=== PATIENT | male | born 1980 | race Caucasian/White ===

== ENCOUNTER 2019-09-14 15:21 | Inpatient (IN) ==
[2019-09-14] MEDS ORDERED: IOPAMIDOL 100 ML BOTTLE IV ONE (15:22)
[2019-09-14] MEDS ORDERED: DIATRIZOATE MEGLU/DIATRIZO SOD 30 ML BOTTLE PO ONE (15:22)
[2019-09-14] MEDS ORDERED: 0.9 % SODIUM CHLORIDE 1,000 ML IV ONE (15:51)
[2019-09-14] MEDS ORDERED: ACETAMINOPHEN 325 MG TABLET PO ONE (15:51)
--- NOTE | 2019-09-14 16:02 | Emergency Department Note ---
Abdominal Pain HPI - General Chief Complaint: Abdominal Pain Stated Complaint: abd pain Time Seen by Provider: 09/14/19 15:26 - History of Present Illness HPI Narrative: 39-year-old male patient presents to the emergency department with chief complaint of worsening abdominal pain and bloody stools over the last 2.5 weeks. Patient mentions that it started with the abdominal pain that he describes is more of a burning sensation to his upper abdomen. He was evaluated by a provider on 08/31 for similar symptoms. During that time he was diagnosed with abdominal pain and diarrhea. He was encouraged to make dietary changes and to take both Imodium and omeprazole. That his stool studies that showed H. pylori negative and a negative stool culture. He was noted to be guaiac positive at that time. He was then seen again in follow-up on 09/03 and did show considerable improvement. I reviewed that note indicates that there was consideration to perform an ultrasound or possibly refer the patient to GI. Patient tells me he contacted the clinic feeling worse and was then told to schedule for an abdominal CT scan. This is scheduled for tomorrow. Upon arrival patient mentions that he has had multiple watery diarrhea episodes today. He mentions at times there is both dark or bright red blood after he defecates. He denies actively straining she is toilet. He describes the pain his abdomen is more of a burning type sensation to his epigastrium. This is does not change with food ingestion. He mentions chills but denies overt fevers. He denies satiation, runny nose, or cough. He denies shortness of breath but does mention "I feel so weak that is making it hard to breathe". He denies retrosternal chest pain or palpitations. He denies any nausea or vomiting. He does admit to some anorexia and is only eaten half of a banana today. He has lost almost 20 pounds in the last 2 and half weeks. He admits to generalized malaise but no focal weakness. A review of his active problems shows the following: Plaque psoriasis, elevated LFTs, back pain, tobacco use, asthma, and acid reflux. - Related Data Previous Rx's Medication Instructions Recorded secukinumab 150 mg/mL subcutaneous 300 mg SUB-Q .COMPLEX #2 ml 06/21/19 pen injector omeprazole 20 mg capsule,delayed 20 mg PO QDAY #30 cap 09/01/19 release Allergies Allergy/AdvReac Type Severity Reaction Status Date / Time No Known Drug Allergies Allergy Verified 09/04/19 14:02 Review of Systems All systems ED: reviewed and negative except as stated. Abdominal Pain PMH - Past Medical History Medical history: Reports: non-contributory - Social History Smoking status: Current some day smoker Alcohol use: Reports: Unknown Drug use: Reports: unknown Physical Exam Limitations: no limitations General appearance: alert, in no apparent distress, other (Well-developed, well- nourished, 39-year-old male patient laying semirecumbent on the emergency room gurney appearing somewhat anxious but in no acute respiratory distress.) Head: atraumatic, normocephalic Eye: Present: normal appearance, PERRL, EOMI. Absent: scleral icterus, conjunctival injection ENT: Present: normal oropharynx, mucous membranes moist Neck: Present: trachea midline. Absent: lymphadenopathy, thyromegaly Chest: Present: symmetric chest wall rise Respiratory: Present: normal lung sounds bilaterally. Absent: respiratory distress, wheezes, stridor, accessory muscle use, prolonged expiratory phase Cardiovascular: Present: regular rate, normal rhythm. Absent: systolic murmur, diastolic murmur Abdominal: Present: soft, tenderness. Absent: distention, guarding, rebound, rigidity, organomegaly, mass Abdominal tenderness: Present: RUQ, epigastrium, moderate Rectal: Present: normal rectal tone, heme (+) stool, hemorrhoids (External thrombosed hemorrhoid noted on exam. No active hemorrhage.), tenderness (Patient did experience considerable tenderness with KWASI). Absent: normal inspection, prostate tenderness Extremities: Present: normal inspection, full ROM, normal capillary refill Back: Absent: CVA tenderness (R), CVA tenderness (L), spinous process tenderness Neurological: Present: alert, oriented X3 Psychiatric: Present: normal affect, anxious Skin: Present: warm, dry, normal color Course Course Narrative: Patient has been worked up extensively by his primary care provider over the last several weeks. He does have a CT scan ordered for tomorrow were going to push that up to today because he is now entered the emergency department with symptoms. His digital rectal exam did show a considerable thrombosed hemorrhoid and was guaiac positive. I suspect this is some of his symptoms. However, he does have the epigastric pain and frequent diarrhea. The CT scan should help shed some light on these. Screening laboratory studies are also being ordered and reviewed. Normal saline will be provided without and a liter bolus. Patient had already taken 2 regular strength Tylenol prior to arrival and was given an additional given 325 Tylenol p.o. I discussed the case briefly my collaborating physician (Dr. Breaux) who also recommended ordering a stool stool calprotectin. Upon reevaluation patient is complaining of a bit more pain to his abdomen. Patient was given Dilaudid 0.5 mg IVP. Upon reevaluation 20 minutes later his pain had decreased considerably. A review of his laboratory studies show the following: CBC WBC 12.2, all others within normal limits. CMP sodium 128, potassium 3.0, chloride 87, anion gap 18, BUN 5, glucose 137, globulin 4.0, all others within normal limits. Abdominal/pelvic CT scan with contrast read by the radiologist as moderately severe inflammation throughout the entire colon. Radiologist suspects may be infectious colitis versus ulcerative colitis. He does mention the thickened appendix which is probably related to the inflammatory bowel disease and less likely superimposed acute appendicitis. The differential diagnosis of diffuse abdominal pain in the adult patient is broad and includes the following: Bowel obstruction, perforation of the GI tract, acute/chronic mesenteric ischemia, abdominal aortic aneurysm (AAA), inflammatory bowel disease (ulcerative colitis/Crohn disease), viral gastroenteritis, spontaneous bacterial peritonitis, colorectal cancer, celiac disease, other malignancies, ketoacidosis, adrenal insufficiency, foodborne illness, IBS, constipation, diverticulosis, and lactose intolerance. These conditions were considered during his evaluation work-up. After reviewing all the data I discussed these findings with the patient who verbalized understanding. Based on his work-up thus far he is suffering from some form of inflammatory colitis. He did have stool studies done that were negative for bacteria. He does have a history of psoriasis, this makes inflammatory colitis (ulcerative colitis) more plausible. With this in mind I reached out to both our hospitalist (Dr. Cortez) and our general surgeon (Dr. Yamilex monaco) about admitting the patient for ongoing care. Dr. Cortez consented to admit the patient to our facility. Dr. Rosales will then come alongside in consultation and perform any necessary GI scoping. Patient remained stable and he was admitted to the hospital under the medical service as mentioned. Vital Signs Temperature 97.7 F 09/14/19 15:21 Pulse Rate 93 H 09/14/19 15:21 Respiratory Rate 20 09/14/19 15:21 Blood Pressure 135/105 09/14/19 15:21 Pulse Oximetry (%) 99 09/14/19 15:21 Temperature 97.7 F 09/14/19 15:21 Pulse Rate 105 H 09/14/19 18:31 Respiratory Rate 20 09/14/19 15:21 Blood Pressure 118/82 09/14/19 18:31 Pulse Oximetry (%) 96 09/14/19 18:31 Abdominal Pain - Lab Data Lab results reviewed: Yes I reviewed the patient's lab results. Result diagrams: 09/14/19 15:33 09/14/19 15:33 Lab Results 09/14/19 09/14/19 09/14/19 Range/Units 15:33 15:33 18:30 WBC 12.2 H (4.50-11.00) K/mcL RBC 5.35 (4.63-6.08) M/mcL Hgb 15.4 (13.7-17.5) g/dL Hct 44.1 (40.1-51.0) % MCV 82.4 (80.0-100.0) fL MCH 28.8 (26.0-34.0) pg MCHC 34.9 (31.0-36.0) g/dL RDW 12.1 (11.5-14.5) % Plt Count 432 (140-440) K/mcL MPV 9.3 (7.4-10.4) fL Gran % 72.7 (38.0-78.0) % Lymph % (Auto) 13.5 L (15.5-49.0) % Cottle % (Auto) 12.6 H (1.0-12.0) % Eos % (Auto) 0.7 (0.0-7.0) % Baso % (Auto) 0.5 (0.0-2.0) % Gran # 8.87 H (1.80-8.00) K/mcL Lymph # (Auto) 1.65 (1.50-4.80) K/mcL [place] # (Auto) 1.54 H (0.10-0.90) K/mcL Eos # (Auto) 0.08 (0.00-0.70) K/mcL Baso # (Auto) 0.06 (0.00-0.30) K/mcL Sodium 128 L (133-145) mmol/L Potassium 3.0 L (3.3-5.1) mmol/L Chloride 87 L (96-108) mmol/L Carbon Dioxide 23 (22-30) mmol/L Anion Gap 18.0 H (8-16) BUN 5 L (6-20) mg/dl Creatinine 1.0 (0.7-1.2) mg/dl GFR Calculation 95 Glucose 137 H (70-105) mg/dL Calcium 9.2 (8.6-10.4) mg/dl Total Bilirubin 0.9 (0.0-1.0) mg/dL AST 20 (0-37) U/l ALT 32 (0-40) U/l Alkaline Phosphatase 75 (39-117) U/L Total Protein 7.6 (5.9-8.4) gm/dL Albumin 3.6 (3.2-5.2) gm/dL Globulin 4.0 H (2.2-3.7) gm/dL Albumin/Globulin Ratio 0.9 L (1.0-2.3) Urine Color Yellow Urine Appearance Clear Urine pH 6.0 (5.0-9.0) Ur Specific [place] 1.032 (1.000-1.035) Urine Protein Neg (NEG) mg/dL Urine Glucose (UA) Negative (NEG) mg/dL Urine Ketones 20 A (NEG) mg/dL Urine Occult Blood 0.03 A (<0.03) mg/dL Urine Nitrate Neg (NEG) Urine Bilirubin Neg (NEG) mg/dL Urine Urobilinogen Neg (NEG) mg/dL Ur Leukocyte Esterase Neg (NEG) /uL Urine RBC 2 H (0-1) /hpf Urine WBC 3 (0-4) /hpf Ur Squamous Epith Cells < 1 (0-4) /hpf Urine Bacteria 0 (0) /hpf Ur Culture Indicated? No - Radiology Data Radiology results reviewed: Yes I reviewed the patient's radiology results. Ordering Physician: Jamar Tracy PA-C Date of Service: 09/14/19 Procedure(s): CT abdomen pelvis w con Accession Number(s): [id number] History: Bloody diarrhea, abdominal pain and anorexia TECHNIQUE: The patient was imaged following oral and intravenous contrast from the diaphragm through the symphysis pubis. Sagittal and coronal reformats were created. Radiation exposure was limited using dose reduction technology. FINDINGS: The liver and spleen are normal in size and homogeneous. The gallbladder and bile ducts are normal. There is no mass or inflammation in the pancreas. A 3 cm gastric diverticulum is present along the posterior wall of the cardia. This was seen on the prior MRI done on and has not enlarged. There is no associated inflammation. The adrenals and kidneys are normal. The aorta and inferior vena cava are normal. There is moderately severe diffuse thickening of the wall of the colon from the level of the cecum to the distal sigmoid. There are no diverticula. The greatest thickening is in the distal ascending colon where the wall measures up to 2.3 cm in thickness. There is no evidence of perforation. No diverticular present. The appendix is also enlarged and measures 11 mm in diameter. There is no appendicolith or inflammation around the appendix. The small intestine is normal in caliber and noninflamed. The ileocecal valve is normal. There are several small reactive lymph nodes in the mesentery adjacent to the inflamed colon. This is most apparent around the transverse and descending colon. No retroperitoneal adenopathy is present. There is no abscess or mass. Urinary bladder is moderately distended but appears normal. No abnormality seen in the prostate are seminal vesicles. IMPRESSION: Moderately severe inflammation throughout the entire colon. This could be due to an infectious colitis or ulcerative colitis. Thickened appendix which is probably related to the inflammatory bowel disease and less likely superimposed acute appendicitis Jamar Tracy was called with the results Interpreted and Authenticated by: Jareth Wells 09/14/19 Disposition Pt seen by [employer]/PA only: Yes Clinical Impression: Inflammatory bowel disease (ulcerative colitis) Qualifiers: Ulcerative colitis location: other ulcerative colitis Digestive disease complication type: unspecified complication Qualified Code(s): K51.819 - Other ulcerative colitis with unspecified complications Disposition: Xfer As Inpt ([facility]) Condition: Good Referrals: Lila Burciaga DO [Primary Care Provider] -
[2019-09-14 16:29] LABS: Basophils # (Auto) 0.06 K/mcL (0.00-0.30); Basophils % (Auto) 0.5 % (0.0-2.0); Eosinophils # (Auto) 0.08 K/mcL (0.00-0.70); Eosinophils % (Auto) 0.7 % (0.0-7.0); Granulocytes % (Auto) 72.7 % (38.0-78.0); Hematocrit 44.1 % (40.1-51.0); Hemoglobin 15.4 g/dL (13.7-17.5); Lymphocytes # (Auto) 1.65 K/mcL (1.50-4.80); Lymphocytes % (Auto) 13.5 % (15.5-49.0); Mean Cell Volume 82.4 fL (80.0-100.0); Mean Corpuscular HGB Conc 34.9 g/dL (31.0-36.0); Mean Platelet Volume 9.3 fL (7.4-10.4); Monocytes # (Auto) 1.54 K/mcL (0.10-0.90); Monocytes % (Auto) 12.6 % (1.0-12.0); Platelet Count 432 K/mcL (140-440); RBC 5.35 M/mcL (4.63-6.08); Red Cell Distribution Width 12.1 % (11.5-14.5); WBC 12.2 K/mcL (4.50-11.00)
[2019-09-14 16:49] LABS: ALT/SGPT 32 U/l (0-40); AST/SGOT 20 U/l (0-37); Albumin 3.6 gm/dL (3.2-5.2); Albumin/Globulin Ratio 0.9 (1.0-2.3); Alkaline Phosphatase 75 U/L (39-117); Bilirubin,Total 0.9 mg/dL (0.0-1.0); Calcium 9.2 mg/dl (8.6-10.4); Carbon Dioxide 23 mmol/L (22-30); Glomerular Filtration Rate 95; Glucose 137 mg/dL (70-105)
[2019-09-14 16:53] LABS: Blood Urea Nitrogen 5 mg/dl (6-20); Chloride 87 mmol/L (96-108)
--- NOTE | 2019-09-14 18:14 | Cat Scan Report ---
History: Bloody diarrhea, abdominal pain and anorexia TECHNIQUE: The patient was imaged following oral and intravenous contrast from the diaphragm through the symphysis pubis. Sagittal and coronal reformats were created. Radiation exposure was limited using dose reduction technology. FINDINGS: The liver and spleen are normal in size and homogeneous. The gallbladder and bile ducts are normal. There is no mass or inflammation in the pancreas. A 3 cm gastric diverticulum is present along the posterior wall of the cardia. This was seen on the prior MRI done on and has not enlarged. There is no associated inflammation. The adrenals and kidneys are normal. The aorta and inferior vena cava are normal. There is moderately severe diffuse thickening of the wall of the colon from the level of the cecum to the distal sigmoid. There are no diverticula. The greatest thickening is in the distal ascending colon where the wall measures up to 2.3 cm in thickness. There is no evidence of perforation. No diverticular present. The appendix is also enlarged and measures 11 mm in diameter. There is no appendicolith or inflammation around the appendix. The small intestine is normal in caliber and noninflamed. The ileocecal valve is normal. There are several small reactive lymph nodes in the mesentery adjacent to the inflamed colon. This is most apparent around the transverse and descending colon. No retroperitoneal adenopathy is present. There is no abscess or mass. Urinary bladder is moderately distended but appears normal. No abnormality seen in the prostate are seminal vesicles. IMPRESSION: Moderately severe inflammation throughout the entire colon. This could be due to an infectious colitis or ulcerative colitis. Thickened appendix which is probably related to the inflammatory bowel disease and less likely superimposed acute appendicitis Jamar Tracy was called with the results Interpreted and Authenticated by: Jareth Wells 09/14/19
[2019-09-14] MEDS ORDERED: HYDROmorphone 0.5 MG/0.5 ML SYRINGE IV PRN (18:18)
[2019-09-14] MEDS ORDERED: HYDROmorphone 1 MG/ML SYRINGE IV PRN (19:19)
[2019-09-14] MEDS ORDERED: ONDANSETRON 4 MG/2 ML VIAL IV PRN ×2 (19:19→19:57)
[2019-09-14] MEDS ORDERED: ACETAMINOPHEN 325 MG TABLET PO PRN ×2 (19:19→19:57)
[2019-09-14] MEDS ORDERED: NALOXONE HCL 0.4 MG/ML VIAL IV PRN ×2 (19:19→19:57)
[2019-09-14] MEDS ORDERED: SECUKINUMAB 300 MG SUB-Q SCH ×2 (19:30→19:57)
[2019-09-14] MEDS ORDERED: traMADol 50 MG TABLET PO PRN ×2 (19:30→19:57)
[2019-09-14] MEDS ORDERED: POTASSIUM CHLORIDE 20 MEQ in 0.9 % SODIUM CHLORIDE 1,000 ML IV SCH (19:30)
[2019-09-14] MEDS ORDERED: PIPERACILLIN SODIUM/TAZOBACTAM 3.375 GM in DEXTROSE 5% IN WATER 50 ML IV SCH (19:30)
[2019-09-14] MEDS ORDERED: morphine 2 MG/ML VIAL IV PRN ×2 (19:30→19:57)
[2019-09-14 19:31] LABS: Appearance,Urine CLEAR; Bacteria,Urine 0 /hpf (0); Bilirubin,Urine NEG (NEG); Color,Urine YELLOW; Culture Indicated,Urine NO; Glucose,Urine (UA) NEGATIVE (NEG); Ketones,Urine 20 mg/dL (NEG); Leukocyte Esterase,Urine NEG /uL (NEG); Nitrate,Urine NEG (NEG); Protein,Urine NEG (NEG); Specific Gravity,Urine 1.032 (1.000-1.035); Urine Blood 0.03 mg/dL (<0.03); Urine RBC 2 /hpf (0-1); Urine Squamous Epithelial Cell < 1 /hpf (0-4); Urine WBC 3 /hpf (0-4); Urobilinogen,Urine NEG (NEG)
--- NOTE | 2019-09-14 19:43 | Internal Med History&Physical ---
Medical - H&P: [facility] Patient information: Note initiated : 09/14/19 at 7:32 pm Service Date, if different from initiated Date: [] Patient: Mamadou Day a 39 y/o M admitted on for abd pain. Chief Complaint: [Abdominal pain and bloody diarrhea for 2.5 weeks] History of present illness: Mr. Day is a 39 year old M with a history of plaque psoriasis and tobacco use who presented to the ER due to abdominal pain and bloody diarrhea for 2.5 weeks. As per patient, patient started to have lower abdominal pain associated with the bloody diarrhea 2.5 weeks ago. The abdominal pain is almost constant, sharp in nature and 2-8 out of 10 in severity. Movement makes more pain. he has been having diarrhea with a small amount of dark red to bright red blood, 10-30 times a day. He went to see a provider on 09/01/19. He was diagnosed with abdominal pain and bloody diarrhea. His stool studies showed H. pylori negative, positive guaiac and negative stool culture. Otherwise he is fine. Denies headache, dizziness, chest pain, shortness of breath, nausea, vomiting, fever, or dysuria. No recent travel or sick contact. In the ER, CT abdomen showed colitis. 1 L normal saline was given. When I saw this patient in the ED, other than the symptoms mentioned above, he was fine. She has been lost 20 pounds over the past 2.5 weeks. Review of systems: Positive for abdominal pain and bloody diarrhea. All other systems were reviewed and are negative. Medical - H&P: PMH Family history: reviewed and not pertinent (Mother has GI problems; son has diabetes type 1.) Have you smoked in the last 12 months: Yes Drug use: none Alcohol use: occasionally Medical - H&P: Meds Home Medications Medication Instructions Recorded Confirmed Type secukinumab 150 mg/mL subcutaneous 300 mg SUB-Q .COMPLEX #2 ml 06/21/19 09/14/19 Rx pen injector omeprazole 20 mg capsule,delayed 20 mg PO QDAY #30 cap 09/01/19 09/14/19 Rx release Allergies Allergy/AdvReac Type Severity Reaction Status Date / Time No Known Drug Allergies Allergy Verified 09/04/19 14:02 Medical - H&P: Exam - Constitutional Vitals: Temp Pulse Resp BP Pulse Ox 97.7 F 105 H 20 118/82 96 09/14/19 15:21 09/14/19 18:31 09/14/19 15:21 09/14/19 18:31 09/14/19 18:31 - Other Additional findings: General - No acute distress Eyes - PERRLA, EOM intact ENT no rhinorrhea, no noticeable or palpable swelling, no redness or rash around throat or on face Neck supple, no JVD, no thyromegaly Respiratory: Lungs -clear, no wheezing or crackles. Cardiovascular - RRR no m/r/g, GI - Normal bowel sounds, no distended, soft, no tenderness. Extremeties - No edema, cyanosis or clubbing Hemo/lymphatic/immune no lymphadenopathy Neurological Alert and oriented x 3, no focal neurological deficits. Psychiatry flat affect Medical - H&P: Reslt - Labs CBC & Chem 7: 09/14/19 15:33 09/14/19 15:33 Labs: Short CBC 09/14/19 Range/Units 15:33 WBC 12.2 H (4.50-11.00) K/mcL Hgb 15.4 (13.7-17.5) g/dL Hct 44.1 (40.1-51.0) % Plt Count 432 (140-440) K/mcL BMP 09/14/19 15:33 Sodium 128 L Potassium 3.0 L Chloride 87 L Carbon Dioxide 23 BUN 5 L Creatinine 1.0 Glucose 137 H Calcium 9.2 Liver Function 09/14/19 Range/Units 15:33 Total Bilirubin 0.9 (0.0-1.0) mg/dL AST 20 (0-37) U/l ALT 32 (0-40) U/l Alkaline Phosphatase 75 (39-117) U/L Albumin 3.6 (3.2-5.2) gm/dL Urine 09/14/19 Range/Units 18:30 Urine Color Yellow Urine Appearance Clear Urine pH 6.0 (5.0-9.0) Ur Specific [place] 1.032 (1.000-1.035) Urine Protein Neg (NEG) mg/dL Urine Glucose (UA) Negative (NEG) mg/dL Medical - H&P: A/P - Narrative A/P Narrative: Assessment: 1. Colitis, etiologies unknown, infectious colitis or ulcerative colitis? K52.9 2. Bloody diarrhea R19.7 3. Hyponatremia E87.1 4. Hypokalemia E87.6 5. 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 Tobacco use Z72.0 Plan: 1. CT abdomen showed entire colitis, infectious colitis or ulcerative colitis? N.p.o. IV fluid + KCl Zosyn Pain management including IV morphine In the ER, general surgeon Dr. Rosales was consulted. He will probably do colonoscopy for him 2. Continue Secukinumab for psoriasis. 3. K supplementation Repeat electrolytes in the morning 4. DVT prophylaxis: SCD. No pharmacological prophylaxis due to GI bleeding 5. CODE STATUS: Full
[2019-09-14] MEDS ORDERED: NACL 0.9% W/KCL 20MEQ 1,000 ML IV SCH (19:57)
[2019-09-14 20:05] LABS: Hemoglobin A1C 5.4 % HGB (4.0-6.0)
[2019-09-14] MEDS ORDERED: 0.9 % SODIUM CHLORIDE 10 ML SYRINGE IV SCH ×2 (22:00)
[2019-09-15] MEDS ORDERED: PIPERACILLIN SODIUM/TAZOBACTAM 3.375 GM in DEXTROSE 5% IN WATER 50 ML IV SCH
[2019-09-15] MEDS ORDERED: ACETAMINOPHEN 650 MG/65 ML BOTTLE IV PRN (00:13)
[2019-09-15] MEDS ORDERED: NACL 0.9% W/KCL 20MEQ 1,000 ML IV SCH (00:15)
[2019-09-15] MEDS ORDERED: 0.9 % SODIUM CHLORIDE 500 ML IV ONE (00:25)
[2019-09-15] MEDS ORDERED: morphine 2 MG/ML VIAL IV PRN (00:50)
[2019-09-15] MEDS ORDERED: ONDANSETRON 4 MG/2 ML VIAL IV PRN (00:50)
[2019-09-15] MEDS ORDERED: traMADol 50 MG TABLET PO PRN (00:50)
[2019-09-15] MEDS ORDERED: SECUKINUMAB 300 MG SUB-Q SCH (00:50)
[2019-09-15] MEDS ORDERED: NALOXONE HCL 0.4 MG/ML VIAL IV PRN (00:50)
[2019-09-15 00:53] LABS: Hematocrit 39.9 % (40.1-51.0); Hemoglobin 13.8 g/dL (13.7-17.5); Mean Cell Volume 83.5 fL (80.0-100.0); Mean Corpuscular HGB Conc 34.6 g/dL (31.0-36.0); Platelet Count 394 K/mcL (140-440); RBC 4.78 M/mcL (4.63-6.08); Red Cell Distribution Width 12.2 % (11.5-14.5); WBC 13.2 K/mcL (4.50-11.00)
[2019-09-15] MEDS: NACL 0.9% W/KCL 20MEQ 1,000 ML IV SCH ×4 (01:07→22:10)
--- NOTE | 2019-09-15 03:54 | Emergency Department Note ---
ED Note Addendum Note Addendum: I discussed this case with Jamar Tracy PA-C. I agree with his evaluation management documentation. In particular we discussed work-up and diagnosis. I also reviewed his studies and results. I agree with decision to admit
[2019-09-15] MEDS ORDERED: traMADol 50 MG TABLET PO ONE (04:47)
[2019-09-15] MEDS: 0.9 % SODIUM CHLORIDE 10 ML SYRINGE IV SCH ×3 (05:57→20:36)
[2019-09-15] MEDS: PIPERACILLIN SODIUM/TAZOBACTAM 3.375 GM in DEXTROSE 5% IN WATER 50 ML IV SCH ×4 (05:57→23:57)
[2019-09-15 06:29] LABS: Basophils # (Auto) 0.03 K/mcL (0.00-0.30); Basophils % (Auto) 0.2 % (0.0-2.0); Eosinophils # (Auto) 0.01 K/mcL (0.00-0.70); Eosinophils % (Auto) 0.1 % (0.0-7.0); Granulocytes % (Auto) 74.8 % (38.0-78.0); Hematocrit 37.4 % (40.1-51.0); Hemoglobin 13.1 g/dL (13.7-17.5); Lymphocytes # (Auto) 1.04 K/mcL (1.50-4.80); Lymphocytes % (Auto) 7.7 % (15.5-49.0); Mean Cell Volume 83.7 fL (80.0-100.0); Mean Platelet Volume 9.4 fL (7.4-10.4); Monocytes # (Auto) 2.32 K/mcL (0.10-0.90); Monocytes % (Auto) 17.2 % (1.0-12.0); Platelet Count 356 K/mcL (140-440); RBC 4.47 M/mcL (4.63-6.08); Red Cell Distribution Width 12.3 % (11.5-14.5); WBC 13.5 K/mcL (4.50-11.00)
[2019-09-15 06:37] LABS: ALT/SGPT 26 U/l (0-40); AST/SGOT 16 U/l (0-37); Albumin 2.7 gm/dL (3.2-5.2); Albumin/Globulin Ratio 0.7 (1.0-2.3); Alkaline Phosphatase 60 U/L (39-117); Bilirubin,Total 0.7 mg/dL (0.0-1.0); Blood Urea Nitrogen 4 mg/dl (6-20); Carbon Dioxide 22 mmol/L (22-30); Globulin 3.8 gm/dL (2.2-3.7); Glomerular Filtration Rate 113; Glucose 115 mg/dL (70-105); Phosphorous 3.6 mg/dL (2.7-4.5)
[2019-09-15 06:40] LABS: Chloride 93 mmol/L (96-108)
[2019-09-15] MEDS ORDERED: PANTOPRAZOLE 40 MG TABLET PO SCH ×2 (07:30)
[2019-09-15] MEDS: PANTOPRAZOLE 40 MG TABLET PO SCH (07:31)
[2019-09-15] MEDS: ACETAMINOPHEN 650 MG/65 ML BOTTLE IV PRN ×2 (07:50→16:46)
--- NOTE | 2019-09-15 07:57 | XRay Report ---
HISTORY: Fever and tachycardia FINDINGS: There is a thin linear band of scar tissue at the left lung base adjacent to the cardiac apex. The lungs are otherwise clear, without evidence of pneumonia. There is no pleural effusion or adenopathy. The heart size is normal. An old healed fracture is present in the midshaft of the right clavicle. There has been no significant change since 05/02/18. IMPRESSION: Normal exam Interpreted and Authenticated by: Jareth Wells 09/15/19
[2019-09-15] MEDS ORDERED: MAGNESIUM SULFATE 2 GM/50 ML BAG IV ONE (08:06)
[2019-09-15] MEDS ORDERED: IBUPROFEN 200 MG TABLET PO PRN (13:48)
--- NOTE | 2019-09-15 13:52 | Internal Med Progress Note ---
Medical - PN: Subj Patient information: Note initiated : 09/15/19 at 1:42 pm Service Date, if different from initiated Date: [] Patient: Mamadou Day 39 y/o M admitted on 09/14/19 for abd pain. Chief Complaint: [] Interval history: 09/14 Today patient feels a little bit better. He still has mild fever and tachycar [place]. Blood pressure is improved. Still has bloody diarrhea He was initially admitted to [facility] due to colitis yesterday afternoon. But he was upgraded to PCU at midnight due to tachycardia, fever, and soft blood pressure. White blood cells 13.5, 12.5 on admission Lactic acid 0.9, 0.8 Potassium 3.0 Unknown etiology for colitis, continue Zosyn at this moment. Surgeon Dr. Rosales will see patient. - Constitutional Vitals: Vital Signs Temp Pulse Resp BP Pulse Ox 100.0 F H 118 H 18 118/74 94 09/15/19 11:39 09/15/19 11:39 09/15/19 11:39 09/15/19 11:39 09/15/19 11:39 Period Temp Pulse Resp BP Sys/Mckinney Pulse Ox Last 24 Hr 97.7 F-103 F 87-131 16-22 97-135/60-109 92-100 Intake and Output 09/14/19 09/15/19 09/15/19 21:59 05:59 13:59 Intake Total 1000 1158 1393 Output Total 325 875 575 Balance 675 283 818 Weight 103.646 kg 103.646 kg Patient Weight 09/16/19 05:59 Weight 103.646 kg Intake & Output: Intake & Output 09/14/19 09/15/19 09/15/19 21:59 05:59 13:59 Intake Total 1000 1158 1393 Output Total 325 875 575 Balance 675 283 818 Weight 103.646 kg 103.646 kg Intake: IV 1000 1038 1163 Sodium Chloride 0.9% 1,000 ml @ 1000 Wide Open IV BOLUS ONE Rx#: [id number] Sodium Chloride 0.9% 500 ml @ 500 150 mls/hr IV BOLUS ONE Rx#: [id number] NaCl 0.9% W/KCl 20Meq 1000ML 1, 488 998 000 ml @ 125 mls/hr IV .Q8H [facility] Rx#:[id number] Zosyn 3.375 gm In Dextrose 5% 50 100 in Water 50 ml @ 100 mls/hr IV Q6H [facility] Rx#:[id number] Oral 120 230 Output: Urine/Stool Mix 325 475 450 Stool 400 125 Other: Stool Size Moderate Smear Small Stool Color Brown Brown Brown Bright Red Blood Stool Consistency Liquid Loose Loose Watery Loose # Voids 1 # Bowel Movements 1 - Additional findings Additional findings: General - No acute distress Eyes - PERRLA, EOM intact ENT no rhinorrhea, no noticeable or palpable swelling, no redness or rash around throat or on face Neck supple, no JVD, no thyromegaly Respiratory: Lungs -clear, no wheezing or crackles. Cardiovascular - RRR no m/r/g, GI - Normal bowel sounds, no distended, soft, no tenderness. Extremeties - No edema, cyanosis or clubbing Hemo/lymphatic/immune no lymphadenopathy Neurological Alert and oriented x 3, no focal neurological deficits. Psychiatry flat affect Medical - PN: Obj Da - Labs CBC & Chem 7: 09/15/19 05:00 09/15/19 05:00 Labs: Abnormal Lab Results 09/15/19 09/15/19 09/15/19 05:00 05:00 00:20 WBC 13.5 H 13.2 H RBC 4.47 L Hgb 13.1 L Hct 37.4 L 39.9 L Lymph % (Auto) 7.7 L Benson % (Auto) 17.2 H Gran # 10.09 H Lymph # (Auto) 1.04 L Benson # (Auto) 2.32 H Sodium 132 L Potassium 3.0 L Chloride 93 L Anion Gap 17.0 H BUN 4 L Glucose 115 H Calcium 8.0 L Albumin 2.7 L Globulin 3.8 H Albumin/Globulin Ratio 0.7 L Urine Ketones Urine Occult Blood Urine RBC 09/14/19 09/14/19 09/14/19 18:30 15:33 15:33 WBC 12.2 H RBC Hgb Hct Lymph % (Auto) 13.5 L Benson % (Auto) 12.6 H Gran # 8.87 H Lymph # (Auto) Benson # (Auto) 1.54 H Sodium 128 L Potassium 3.0 L Chloride 87 L Anion Gap 18.0 H BUN 5 L Glucose 137 H Calcium Albumin Globulin 4.0 H Albumin/Globulin Ratio 0.9 L Urine Ketones 20 A Urine Occult Blood 0.03 A Urine RBC 2 H Meds: Medications Potassium Chloride/Sodium Chloride (Nacl 0.9% W/Kcl 20meq 1000ml) 1,000 mls @ 125 mls/hr IV .Q8H [facility] Last Admin: 09/15/19 07:32 Dose: 125 mls/hr Documented by: Acetaminophen (Ofirmev) 650 mg in 65 mls @ 130 mls/hr IV Q6HP PRN; Protocol PRN Reason: PAIN/FEVER > 101 Last Infusion: 09/15/19 08:20 Dose: Infused Documented by: Piperacillin Sod/Tazobactam (Sod 3.375 gm/ Dextrose) 50 mls @ 100 mls/hr IV Q6H [facility]; Protocol Last Infusion: 09/15/19 12:10 Dose: Infused Documented by: Morphine Sulfate (Morphine) 2 mg IV Q4HP PRN; Protocol PRN Reason: Per Pain Protocol Naloxone HCl (Narcan) 0.1 mg IV Q2MIN PRN PRN Reason: Opiate Reversal Ondansetron HCl (Zofran) 4 mg IV Q6HP PRN PRN Reason: Nausea And Vomiting Pantoprazole Sodium (Protonix) 40 mg PO QAMAC [facility] Last Admin: 09/15/19 07:31 Dose: 40 mg Documented by: Sodium Chloride (Saline Flush) 10 ml IV Q8 [facility] Last Admin: 09/15/19 13:07 Dose: Not Given Documented by: Tramadol HCl (Ultram) 50 mg PO Q6HP PRN PRN Reason: Pain Last Admin: 09/15/19 04:47 Dose: 50 mg Documented by: Medical - PN: A/P - Time Spent With Patient Total time spent is greater than 50% in coordination of care (as documented) at patient's floor/unit and/or counseling patient: - Narrative A/P Narrative: Assessment: 1. Colitis, etiologies unknown, infectious colitis or ulcerative colitis? K52.9 2. Bloody diarrhea R19.7 3. Hyponatremia E87.1 4. Hypokalemia E87.6 5. 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 Tobacco use Z72.0 Plan: 1. CT abdomen showed entire colitis, infectious colitis or ulcerative colitis? N.p.o. increased IV fluid + KCl to 150ml/hr Continue Zosyn Pain management including IV morphine General surgeon Dr. Rosales will see him and probably do colonoscopy for him Blood culture negative. LA WNL 2. Continue Secukinumab for psoriasis. 3. K supplementation Repeat electrolytes in the morning 4. DVT prophylaxis: SCD. No pharmacological prophylaxis due to GI bleeding 5. CODE STATUS: Full Medical - PN: Qual - VTE Deep Vein Thrombosis/Pulmonary Embolism Present on Admission: No
--- NOTE | 2019-09-15 15:00 | General Surgery Consult Note ---
History of Present Illness Patient information: Note initiated : 09/15/19 at 2:57 pm Service Date, if different from initiated Date: [] Patient: Mamadou Day 39 y/o M admitted on 09/14/19 for abd pain. Chief Complaint: [] Reason for consult: abdominal pain Requesting physician: Alex Cortez History of present illness: 39-year-old male admitted for evaluation of bloody diarrhea with weight loss. The patient had onset of symptoms about 23 August. He started having diffuse abdominal pain with bloody diarrhea. Initially he had 10-12 bowel movements a day but it progressed to 20-30 bowel movements per day. He had primarily midepigastric pain. He has some fecal urgency he denies nausea vomiting. He was seen by his primary physician and evaluation was done which shows a major inflammation of his entire colon. The patient states that he had a similar episode about 8 years ago after drinking some regular border. He was treated and it resolved. During this time over the past 3 weeks he has lost about 20 pounds. He has general weakness. He was admitted yesterday and states that he feels better today. White count is only 12. The patient has psoriatic arthritis and has been on COSENTYX Horvat. It has been effective in clearing of his arthritis. 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 Past family history: Hypertension Arthritis Colon cancer Diabetes mellitus Coronary artery disease Past social history: Former smoker stopped 10 months ago Occasional use of alcohol Denies drug use Medications and Allergies Home Medications Medication Instructions Recorded Confirmed Type secukinumab 150 mg/mL subcutaneous 300 mg SUB-Q .COMPLEX #2 ml 06/21/19 09/14/19 Rx pen injector Loperamide [Imodium] 2 mg PO PRN PRN 09/14/19 09/14/19 History Omeprazole [PriLOSEC] 20 mg PO BID 09/14/19 09/14/19 History Allergies Allergy/AdvReac Type Severity Reaction Status Date / Time No Known Drug Allergies Allergy Verified 09/14/19 20:44 Exam Temp Pulse Resp BP Pulse Ox 98.6 F 109 H 18 124/79 96 09/15/19 14:01 09/15/19 14:00 09/15/19 14:01 09/15/19 14:01 09/15/19 14:01 - General physical appearance well developed, well nourished, no distress, obese - Eyes PERRL, normal ocular movement - ENT normal pinna, normal nares, normal mucosa, no hearing loss, no congestion - Head Head exam IM: Present: atraumatic, normocephalic - Neck no masses, no bruits, trachea midline, no lymphadenopathy, no venous distension - Cardiovascular Cardiovascular exam IM: Present: normal rate and rhythm, RRR, +S1, +S2. Absent: JVD, tachycardia - Respiratory normal expansion, normal respiratory effort, clear to auscultation - Abdomen Abdomen: Present: soft, non tender, tender (mild tenderness across upper abdomen above the umbilicus; good active bowel sounds; no guarding or rebound), bowel sounds Hernia: Present: none - Genitourinary Present: normal penis with no external lesions - Integumentary Present: no rash, no growths, no abnormal pigmentation - Neurologic Present: normal coordination, normal sensation - Musculoskeletal Present: normal gait, normal posture - Psychiatric Present: oriented to time, oriented to person, oriented to place, speech is normal, memory intact Results - Labs 09/15/19 05:00 09/15/19 05:00 Abnormal lab results 09/14/19 09/14/19 09/14/19 Range/Units 15:33 15:33 18:30 WBC 12.2 H (4.50-11.00) K/mcL RBC (4.63-6.08) M/mcL Hgb (13.7-17.5) g/dL Hct (40.1-51.0) % Lymph % (Auto) 13.5 L (15.5-49.0) % Jones % (Auto) 12.6 H (1.0-12.0) % Gran # 8.87 H (1.80-8.00) K/mcL Lymph # (Auto) (1.50-4.80) K/mcL Jones # (Auto) 1.54 H (0.10-0.90) K/mcL Sodium 128 L (133-145) mmol/L Potassium 3.0 L (3.3-5.1) mmol/L Chloride 87 L (96-108) mmol/L Anion Gap 18.0 H (8-16) BUN 5 L (6-20) mg/dl Glucose 137 H (70-105) mg/dL Calcium (8.6-10.4) mg/dl Albumin (3.2-5.2) gm/dL Globulin 4.0 H (2.2-3.7) gm/dL Albumin/Globulin Ratio 0.9 L (1.0-2.3) Urine Ketones 20 A (NEG) mg/dL Urine Occult Blood 0.03 A (<0.03) mg/dL Urine RBC 2 H (0-1) /hpf 09/15/19 09/15/19 09/15/19 Range/Units 00:20 05:00 05:00 WBC 13.2 H 13.5 H (4.50-11.00) K/mcL RBC 4.47 L (4.63-6.08) M/mcL Hgb 13.1 L (13.7-17.5) g/dL Hct 39.9 L 37.4 L (40.1-51.0) % Lymph % (Auto) 7.7 L (15.5-49.0) % Jones % (Auto) 17.2 H (1.0-12.0) % Gran # 10.09 H (1.80-8.00) K/mcL Lymph # (Auto) 1.04 L (1.50-4.80) K/mcL Jones # (Auto) 2.32 H (0.10-0.90) K/mcL Sodium 132 L (133-145) mmol/L Potassium 3.0 L (3.3-5.1) mmol/L Chloride 93 L (96-108) mmol/L Anion Gap 17.0 H (8-16) BUN 4 L (6-20) mg/dl Glucose 115 H (70-105) mg/dL Calcium 8.0 L (8.6-10.4) mg/dl Albumin 2.7 L (3.2-5.2) gm/dL Globulin 3.8 H (2.2-3.7) gm/dL Albumin/Globulin Ratio 0.7 L (1.0-2.3) Urine Ketones (NEG) mg/dL Urine Occult Blood (<0.03) mg/dL Urine RBC (0-1) /hpf Diabetes panel 09/14/19 09/14/19 09/15/19 Range/Units 15:33 15:33 05:00 Sodium 128 L 132 L (133-145) mmol/L Potassium 3.0 L 3.0 L (3.3-5.1) mmol/L Chloride 87 L 93 L (96-108) mmol/L Carbon Dioxide 23 22 (22-30) mmol/L BUN 5 L 4 L (6-20) mg/dl Creatinine 1.0 0.8 (0.7-1.2) mg/dl Glucose 137 H 115 H (70-105) mg/dL Hemoglobin A1c 5.4 (4.0-6.0) % HGB Calcium 9.2 8.0 L (8.6-10.4) mg/dl AST 20 16 (0-37) U/l ALT 32 26 (0-40) U/l Alkaline Phosphatase 75 60 (39-117) U/L Total Protein 7.6 6.5 (5.9-8.4) gm/dL Albumin 3.6 2.7 L (3.2-5.2) gm/dL Calcium panel 09/14/19 09/15/19 Range/Units 15: 05:00 Calcium 9.2 8.0 L (8.6-10.4) mg/dl Phosphorus 3.6 (2.7-4.5) mg/dL Albumin 3.6 2.7 L (3.2-5.2) gm/dL Pituitary panel 09/14/19 09/15/19 Range/Units 15:33 05:00 Sodium 128 L 132 L (133-145) mmol/L Potassium 3.0 L 3.0 L (3.3-5.1) mmol/L Chloride 87 L 93 L (96-108) mmol/L Carbon Dioxide 23 22 (22-30) mmol/L BUN 5 L 4 L (6-20) mg/dl Creatinine 1.0 0.8 (0.7-1.2) mg/dl Glucose 137 H 115 H (70-105) mg/dL Calcium 9.2 8.0 L (8.6-10.4) mg/dl Adrenal panel 09/14/19 09/15/19 Range/Units 15:33 05:00 Sodium 128 L 132 L (133-145) mmol/L Potassium 3.0 L 3.0 L (3.3-5.1) mmol/L Chloride 87 L 93 L (96-108) mmol/L Carbon Dioxide 23 22 (22-30) mmol/L BUN 5 L 4 L (6-20) mg/dl Creatinine 1.0 0.8 (0.7-1.2) mg/dl Glucose 137 H 115 H (70-105) mg/dL Calcium 9.2 8.0 L (8.6-10.4) mg/dl Total Bilirubin 0.9 0.7 (0.0-1.0) mg/dL AST 20 16 (0-37) U/l ALT 32 26 (0-40) U/l Alkaline Phosphatase 75 60 (39-117) U/L Total Protein 7.6 6.5 (5.9-8.4) gm/dL Albumin 3.6 2.7 L (3.2-5.2) gm/dL All other labs normal. Assessment and Plan (1) Ulcerative pancolitis Clear liquids until patient is improved ENLIVE dietary supplement Solu-Medrol 60 mg IV every 12 Continue Zosyn antibiotics Repeat for fecal leukocytes and pathogenic enteric organisms As long as the patient is improving we will not do urgent colonoscopy. If he improves on present therapy we'll treat as an outpatient and perform colonoscopy in 2-3 weeks. If he worsens we'll do colonoscopy as an inpatient Status: Acute (2) Psoriasis with arthropathy Continue present medication Status: Acute (3) Asthma Status: Resolved
[2019-09-15] MEDS: methylPREDNISolone SOD SUCC 125 MG/2 ML VIAL IV SCH (20:36)
[2019-09-16 05:11] LABS: Basophils # (Auto) 0.04 K/mcL (0.00-0.30); Basophils % (Auto) 0.4 % (0.0-2.0); Eosinophils # (Auto) 0.01 K/mcL (0.00-0.70); Eosinophils % (Auto) 0.1 % (0.0-7.0); Granulocytes % (Auto) 85.7 % (38.0-78.0); Hematocrit 37.9 % (40.1-51.0); Hemoglobin 12.9 g/dL (13.7-17.5); Lymphocytes # (Auto) 0.81 K/mcL (1.50-4.80); Lymphocytes % (Auto) 8.1 % (15.5-49.0); Mean Cell Volume 85.6 fL (80.0-100.0); Mean Platelet Volume 9.4 fL (7.4-10.4); Monocytes # (Auto) 0.57 K/mcL (0.10-0.90); Monocytes % (Auto) 5.7 % (1.0-12.0); Platelet Count 326 K/mcL (140-440); RBC 4.43 M/mcL (4.63-6.08); Red Cell Distribution Width 12.3 % (11.5-14.5)
[2019-09-16] MEDS: NACL 0.9% W/KCL 20MEQ 1,000 ML IV SCH ×4 (05:25→20:34)
[2019-09-16] MEDS: 0.9 % SODIUM CHLORIDE 10 ML SYRINGE IV SCH ×3 (05:42→20:33)
[2019-09-16] MEDS: PIPERACILLIN SODIUM/TAZOBACTAM 3.375 GM in DEXTROSE 5% IN WATER 50 ML IV SCH ×3 (05:44→18:06)
[2019-09-16] MEDS: PANTOPRAZOLE 40 MG TABLET PO SCH (07:08)
[2019-09-16 08:39] LABS: ALT/SGPT 24 U/l (0-40); AST/SGOT 13 U/l (0-37); Albumin 2.6 gm/dL (3.2-5.2); Albumin/Globulin Ratio 0.7 (1.0-2.3); Alkaline Phosphatase 76 U/L (39-117); Bilirubin,Total 0.3 mg/dL (0.0-1.0); Blood Urea Nitrogen 8 mg/dl (6-20); Calcium 8.2 mg/dl (8.6-10.4); Carbon Dioxide 25 mmol/L (22-30); Chloride 98 mmol/L (96-108); Globulin 3.6 gm/dL (2.2-3.7); Glomerular Filtration Rate 120; Glucose 156 mg/dL (70-105)
[2019-09-16] MEDS: methylPREDNISolone SOD SUCC 125 MG/2 ML VIAL IV SCH ×2 (09:03→20:33)
--- NOTE | 2019-09-16 11:38 | Internal Med Progress Note ---
Medical - PN: Subj Patient information: Note initiated : 09/16/19 at 11:35 am Service Date, if different from initiated Date: [] Patient: Mamadou Day a 39 y/o M admitted on 09/14/19 for abd pain. Chief Complaint: [] Interval history: Mr. Day is a 39 year old M with a history of plaque psoriasis and tobacco use who presented to the ER due to abdominal pain and bloody diarrhea for 2.5 weeks. As per patient, patient started to have lower abdominal pain associated with the bloody diarrhea 2.5 weeks ago. The abdominal pain is almost constant, sharp in nature and 2-8 out of 10 in severity. Movement makes more pain. he has been having diarrhea with a small amount of dark red to bright red blood, 10-30 times a day. He went to see a provider on 09/01/19. He was diagnosed with abdominal pain and bloody diarrhea. His stool studies showed H. pylori negative, positive guaiac and negative stool culture. Otherwise he is fine. Denies headache, dizziness, chest pain, shortness of breath, nausea, vomiting, fever, or dysuria. No recent travel or sick contact. In the ER, CT abdomen showed colitis. 1 L normal saline was given. When I saw this patient in the ED, other than the symptoms mentioned above, he was fine. She has been lost 20 pounds over the past 2.5 weeks. 09/14 Today patient feels a little bit better. He still has mild fever and tachycardia. Blood pressure is improved. Still has bloody diarrhea He was initially admitted to [facility] due to colitis yesterday afternoon. But he was upgraded to PCU at midnight due to tachycardia, fever, and soft blood pressure. White blood cells 13.5, 12.5 on admission Lactic acid 0.9, 0.8 Potassium 3.0 Unknown etiology for colitis, continue Zosyn at this moment. Surgeon Dr. Rosales will see patient. 09/15 Patient feels better. Less abdominal pain. Less frequent diarrhea with less bloody in the stool. Vital signs are stable Leukocytosis resolved today Hemoglobin 12.9 Review of systems: Positive for abdominal pain and bloody diarrhea. All other systems were reviewed and are negative. - Constitutional Vitals: Vital Signs Temp Pulse Resp BP Pulse Ox 97.7 F 72 16 127/84 92 09/16/19 10:00 09/16/19 07:13 09/16/19 10:00 09/16/19 10:00 09/16/19 10:00 Period Temp Pulse Resp BP Sys/Mckinney Pulse Ox Last 24 Hr 97.0 F-100.3 F 55-118 14-95 98-142/66-105 92-97 Intake and Output 09/15/19 09/16/19 09/16/19 21:59 05:59 13:59 Intake Total 208 2655 285 Output Total 750 575 550 Balance 1332079 -265 Weight 104.644 kg Intake & Output: Intake & Output 09/15/19 09/16/19 09/16/19 21:59 05:59 13:59 Intake Total 2080 2655 285 Output Total 750 575 550 Balance 1330 2079 -265 Weight 104.644 kg Intake: IV 1115 2030 50 NaCl 0.9% W/KCl 20Meq 1000ML 1, 1000 1980 000 ml @ 150 mls/hr IV .Q6H40M [facility] Rx#:[id number] Zosyn 3.375 gm In Dextrose 5% 50 50 50 in Water 50 ml @ 100 mls/hr IV Q6H [facility] Rx#:[id number] Oral 965 625 235 Output: Void Amount 300 Urine/Stool Mix 625 500 Stool 125 75 250 Other: Meal Dinner Percent of Meal Consumed 25% Feeding Ability Assist with Tray Set Up Urine Appearance Clear Urine Color Dark [place] Urine Odor Normal Stool Size Small Small Small Stool Color Brown Brown Brown Green Stool Consistency Liquid Liquid Liquid # Bowel Movements 1 1 - Additional findings Additional findings: General - No acute distress Eyes - PERRLA, EOM intact ENT no rhinorrhea, no noticeable or palpable swelling, no redness or rash around throat or on face Neck supple, no JVD, no thyromegaly Respiratory: Lungs -clear, no wheezing or crackles. Cardiovascular - RRR no m/r/g, GI - Normal bowel sounds, no distended, soft, no tenderness. Extremeties - No edema, cyanosis or clubbing Hemo/lymphatic/immune no lymphadenopathy Neurological Alert and oriented x 3, no focal neurological deficits. Psychiatry flat affect Medical - PN: Obj Da - Labs CBC & Chem 7: 09/16/19 04:10 09/16/19 07:06 Labs: Abnormal Lab Results 09/16/19 09/16/19 09/16/19 07:06 04:10 04:10 WBC RBC 4.43 L Hgb 12.9 L Hct 37.9 L Gran % 85.7 H Lymph % (Auto) 8.1 L Pope % (Auto) Gran # 8.60 H Lymph # (Auto) 0.81 L Pope # (Auto) Sodium Potassium Chloride Anion Gap BUN Glucose 156 H Calcium 8.2 L Magnesium 2.6 H Albumin 2.6 L Globulin Albumin/Globulin Ratio 0.7 L Urine Ketones Urine Occult Blood Urine RBC 09/15/19 09/15/19 09/15/19 05:00 05:00 00:20 WBC 13.5 H 13.2 H RBC 4.47 L Hgb 13.1 L Hct 37.4 L 39.9 L Gran % Lymph % (Auto) 7.7 L Pope % (Auto) 17.2 H Gran # 10.09 H Lymph # (Auto) 1.04 L Pope # (Auto) 2.32 H Sodium 132 L Potassium 3.0 L Chloride 93 L Anion Gap 17.0 H BUN 4 L Glucose 115 H Calcium 8.0 L Magnesium Albumin 2.7 L Globulin 3.8 H Albumin/Globulin Ratio 0.7 L Urine Ketones Urine Occult Blood Urine RBC 09/14/19 09/14/19 09/14/19 18:30 15:33 15:33 WBC 12.2 H RBC Hgb Hct Gran % Lymph % (Auto) 13.5 L Pope % (Auto) 12.6 H Gran # 8.87 H Lymph # (Auto) Pope # (Auto) 1.54 H Sodium 128 L Potassium 3.0 L Chloride 87 L Anion Gap 18.0 H BUN 5 L Glucose 137 H Calcium Magnesium Albumin Globulin 4.0 H Albumin/Globulin Ratio 0.9 L Urine Ketones 20 A Urine Occult Blood 0.03 A Urine RBC 2 H Meds: Medications Piperacillin Sod/Tazobactam (Sod 3.375 gm/ Dextrose) 50 mls @ 100 mls/hr IV Q6H [facility]; Protocol Last Infusion: 09/16/19 06:15 Dose: Infused Documented by: Potassium Chloride/Sodium Chloride (Nacl 0.9% W/Kcl 20meq 1000ml) 1,000 mls @ 150 mls/hr IV .Q6H40M [facility] Last Admin: 09/16/19 05:25 Dose: 150 mls/hr Documented by: Ibuprofen (Motrin) 200 mg PO Q6HP PRN; Protocol PRN Reason: Per Pain Protocol Methylprednisolone Sodium Succinate (Solu-Medrol) 62.5 mg IV Q12 [facility] Last Admin: 09/16/19 09:03 Dose: 62.5 mg Documented by: Morphine Sulfate (Morphine) 2 mg IV Q4HP PRN; Protocol PRN Reason: Per Pain Protocol Last Admin: 09/16/19 09:49 Dose: 2 mg Documented by: Naloxone HCl (Narcan) 0.1 mg IV Q2MIN PRN PRN Reason: Opiate Reversal Ondansetron HCl (Zofran) 4 mg IV Q6HP PRN PRN Reason: Nausea And Vomiting Last Admin: 09/16/19 09:29 Dose: 4 mg Documented by: Pantoprazole Sodium (Protonix) 40 mg PO QAMAC [facility] Last Admin: 09/16/19 07:08 Dose: 40 mg Documented by: Sodium Chloride (Saline Flush) 10 ml IV Q8 [facility] Last Admin: 09/16/19 05:42 Dose: Not Given Documented by: Tramadol HCl (Ultram) 50 mg PO Q6HP PRN PRN Reason: Pain Last Admin: 09/15/19 04:47 Dose: 50 mg Documented by: Medical - PN: A/P - Time Spent With Patient Total time spent is greater than 50% in coordination of care (as documented) at patient's floor/unit and/or counseling patient: - Narrative A/P Narrative: Assessment: 1. Colitis, etiologies unknown, infectious colitis or ulcerative colitis? K52.9 2. Bloody diarrhea R19.7 3. Hyponatremia E87.1 4. Hypokalemia E87.6 5. 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 Tobacco use Z72.0 Plan: 1. CT abdomen showed entire colitis, infectious colitis or ulcerative colitis? increased IV fluid + KCl to 150ml/hr As per general surgeon Dr. Rosales, Clear liquids until patient is improved ENLIVE dietary supplement Solu-Medrol 60 mg IV every 12 (since 09/14) Continue Zosyn Repeat for fecal leukocytes and pathogenic enteric organisms Pain management including IV morphine Blood culture negative. LA WNL He will need colonoscope as an outpatient if he improved in hospital. Colonoscope in hospital if he deteriorates. 2. Continue Secukinumab for psoriasis. 3. K supplementation Repeat electrolytes in the morning 4. DVT prophylaxis: SCD. No pharmacological prophylaxis due to GI bleeding. Encouraged doing more exercises. PT. 5. CODE STATUS: Full Medical - PN: Qual - VTE Deep Vein Thrombosis/Pulmonary Embolism Present on Admission: No
--- NOTE | 2019-09-16 14:03 | General Surgery Progress Note ---
Subjective Patient reports: feels better, pain is less, tolerating liquids well, flatus, bowel movement, afebrile Narrative: Note initiated : 09/16/19 at 2:01 pm Service Date, if different from initiated Date: [] Patient: Mamadou Day 39 y/o M admitted on 09/14/19 for abd pain. Chief Complaint: [Patient is continuing to improve. He does not have any abdominal discomfort. Stools are more formed but he still has some bleeding. He is not having pain. Stool cultures were not done. White count 10, hemoglobin 12.9, hematocrit 37, potassium 3.8, BUN 8, creatinine 0.7.] Objective Temp Pulse Resp BP Pulse Ox 96.7 F L 62 16 131/87 95 09/16/19 12:00 09/16/19 12:00 09/16/19 12:00 09/16/19 12:00 09/16/19 12:00 - Additional Data Intake & Output - Last 24 hours: Intake & Output 09/14/19 09/15/19 09/16/19 09/17/19 05:59 05:59 05:59 05:59 Intake Total 2158 6178 1335 Output Total 1200 1900 700 Balance 958 4278 635 Weight 228 lb 8 oz 230 lb 11.2 oz - General physical appearance well developed, well nourished, no distress - Eyes PERRL, normal ocular movement - ENT normal pinna, normal nares, normal mucosa, no hearing loss, no congestion - Neck no masses, no bruits, trachea midline, no lymphadenopathy, no venous distension - Respiratory normal expansion, normal respiratory effort, clear to auscultation - Cardiovascular Cardiovascular exam: Present: normal rate and rhythm, RRR, +S1, +S2. Absent: JVD, tachycardia - Abdomen non tender (no tenderness to palpation), bowel sounds (good active bowel porter nds), surgical scars (none), masses (none) - Integumentary no rash, no growths, no abnormal pigmentation - Neurologic normal coordination, normal sensation - Musculoskeletal normal gait, normal posture - Psychiatric oriented to time, oriented to person, oriented to place, speech is normal, memor y intact - Labs 09/16/19 04:10 09/16/19 07:06 Diabetes panel 09/16/19 09/16/19 Range/Units 04:10 07:06 Sodium TNP 134 Potassium TNP 3.8 Chloride TNP 98 Carbon Dioxide TNP 25 BUN TNP 8 Creatinine TNP 0.7 Glucose TNP 156 H Calcium TNP 8.2 L AST TNP 13 ALT TNP 24 Alkaline Phosphatase TNP 76 Total Protein TNP 6.2 Albumin TNP 2.6 L Calcium panel 09/16/19 09/16/19 Range/Units 04:10 07:06 Calcium TNP 8.2 L Albumin TNP 2.6 L Pituitary panel 09/16/19 09/16/19 Range/Units 04:10 07:06 Sodium TNP 134 Potassium TNP 3.8 Chloride TNP 98 Carbon Dioxide TNP 25 BUN TNP 8 Creatinine TNP 0.7 Glucose TNP 156 H Calcium TNP 8.2 L Adrenal panel 09/16/19 09/16/19 Range/Units 04:10 07:06 Sodium TNP 134 Potassium TNP 3.8 Chloride TNP 98 Carbon Dioxide TNP 25 BUN TNP 8 Creatinine TNP 0.7 Glucose TNP 156 H Calcium TNP 8.2 L Total Bilirubin TNP 0.3 AST TNP 13 ALT TNP 24 Alkaline Phosphatase TNP 76 Total Protein TNP 6.2 Albumin TNP 2.6 L Assessment and Plan (1) Ulcerative pancolitis Status: Acute Assessment and plan: Patient continues to improve. We'll continue present therapy. Stool will be sent for routine cultures and stool leukocytes. Current Visit: Yes (2) Psoriasis with arthropathy Status: Acute Current Visit: No (3) Asthma Status: Resolved Current Visit: No - Time Spent With Patient Total time spent is greater than 50% in coordination of care (as documented) at patient's floor/unit and/or counseling patient:
[2019-09-16] MEDS ORDERED: traMADol 50 MG TABLET PO PRN (15:54)
[2019-09-16] MEDS ORDERED: NALOXONE HCL 0.4 MG/ML VIAL IV PRN (15:54)
[2019-09-16] MEDS ORDERED: ONDANSETRON 4 MG/2 ML VIAL IV PRN (15:54)
[2019-09-16] MEDS: morphine 2 MG/ML VIAL IV PRN (21:33)
[2019-09-17] MEDS: NACL 0.9% W/KCL 20MEQ 1,000 ML IV SCH ×3 (03:44→20:24)
[2019-09-17] MEDS: 0.9 % SODIUM CHLORIDE 10 ML SYRINGE IV SCH ×3 (05:35→21:40)
[2019-09-17] MEDS: PIPERACILLIN SODIUM/TAZOBACTAM 3.375 GM in DEXTROSE 5% IN WATER 50 ML IV SCH ×4 (05:36→17:42)
[2019-09-17 06:16] LABS: Basophils # (Auto) 0.02 K/mcL (0.00-0.30); Basophils % (Auto) 0.2 % (0.0-2.0); Eosinophils # (Auto) 0.01 K/mcL (0.00-0.70); Eosinophils % (Auto) 0.1 % (0.0-7.0); Granulocytes % (Auto) 81.6 % (38.0-78.0); Hemoglobin 11.8 g/dL (13.7-17.5); Lymphocytes # (Auto) 1.28 K/mcL (1.50-4.80); Lymphocytes % (Auto) 10.3 % (15.5-49.0); Mean Cell Volume 84.5 fL (80.0-100.0); Mean Corpuscular HGB Conc 33.7 g/dL (31.0-36.0); Mean Platelet Volume 9.7 fL (7.4-10.4); Monocytes # (Auto) 0.97 K/mcL (0.10-0.90); Monocytes % (Auto) 7.8 % (1.0-12.0); Platelet Count 388 K/mcL (140-440); RBC 4.14 M/mcL (4.63-6.08); Red Cell Distribution Width 12.4 % (11.5-14.5); WBC 12.4 K/mcL (4.50-11.00)
[2019-09-17 06:29] LABS: ALT/SGPT 51 U/l (0-40); AST/SGOT 30 U/l (0-37); Albumin 2.5 gm/dL (3.2-5.2); Albumin/Globulin Ratio 0.7 (1.0-2.3); Alkaline Phosphatase 80 U/L (39-117); Bilirubin,Total 0.2 mg/dL (0.0-1.0); Carbon Dioxide 23 mmol/L (22-30); Chloride 101 mmol/L (96-108); Globulin 3.6 gm/dL (2.2-3.7); Glomerular Filtration Rate 128; Glucose 163 mg/dL (70-105)
[2019-09-17 06:30] LABS: Blood Urea Nitrogen 9 mg/dl (6-20)
[2019-09-17] MEDS: PANTOPRAZOLE 40 MG TABLET PO SCH (07:16)
[2019-09-17] MEDS: methylPREDNISolone SOD SUCC 125 MG/2 ML VIAL IV SCH ×2 (09:05→20:32)
--- NOTE | 2019-09-17 10:37 | Internal Med Progress Note ---
Medical - PN: Subj Patient information: Note initiated : 09/17/19 at 10:33 am Service Date, if different from initiated Date: [] Patient: Mamadou Day a 39 y/o M admitted on 09/14/19 for abd pain. Chief Complaint: [] Interval history: Mr. Day is a 39 year old M with a history of plaque psoriasis and tobacco use who presented to the ER due to abdominal pain and bloody diarrhea for 2.5 weeks. As per patient, patient started to have lower abdominal pain associated with the bloody diarrhea 2.5 weeks ago. The abdominal pain is almost constant, sharp in nature and 2-8 out of 10 in severity. Movement makes more pain. he has been having diarrhea with a small amount of dark red to bright red blood, 10-30 times a day. He went to see a provider on 09/01/19. He was diagnosed with abdominal pain and bloody diarrhea. His stool studies showed H. pylori negative, positive guaiac and negative stool culture. Otherwise he is fine. Denies headache, dizziness, chest pain, shortness of breath, nausea, vomiting, fever, or dysuria. No recent travel or sick contact. In the ER, CT abdomen showed colitis. 1 L normal saline was given. When I saw this patient in the ED, other than the symptoms mentioned above, he was fine. She has been lost 20 pounds over the past 2.5 weeks. 09/14 Today patient feels a little bit better. He still has mild fever and tachycardia. Blood pressure is improved. Still has bloody diarrhea He was initially admitted to [facility] due to colitis yesterday afternoon. But he was upgraded to PCU at midnight due to tachycardia, fever, and soft blood pressure. White blood cells 13.5, 12.5 on admission Lactic acid 0.9, 0.8 Potassium 3.0 Unknown etiology for colitis, continue Zosyn at this moment. Surgeon Dr. Rosales will see patient. 09/15 Patient feels better. Less abdominal pain. Less frequent diarrhea with less bloody in the stool. Vital signs are stable Leukocytosis resolved today Hemoglobin 12.9 09/16 Continue to improve. Less pain, less bloody diarrhea, less nausea. Denies feve r/chills. Bradycardia, EKG showed sinus tachy. WBC 12.4 from 10.0 yesterday. He started steroid 2 days ago. Discussed with Dr. Rosales who will do colonoscopy for him tomorrow. Started clear liquid. Review of systems: Positive for abdominal pain and bloody diarrhea. All other systems were reviewed and are negative. - Constitutional Vitals: Vital Signs Temp Pulse Resp BP Pulse Ox 97.1 F 54 L 20 146/89 99 09/17/19 03:27 09/17/19 00:04 09/17/19 03:27 09/17/19 03:27 09/17/19 03:27 Period Temp Pulse Resp BP Sys/Mckinney Pulse Ox Last 24 Hr 96.6 F-97.6 F 54-70 15-20 124-146/78-99 95-99 Intake and Output 09/16/19 09/17/19 09/17/19 21:59 05:59 13:59 Intake Total 2710 1550 650 Output Total 472 820 8921 Balance 1909 1150 -425 Weight 106.141 kg Intake & Output: Intake & Output 09/16/19 09/17/19 09/17/19 21:59 05:59 13:59 Intake Total 2710 1550 650 Output Total 271 699 5035 Balance 1909 1150 -425 Weight 106.141 kg Intake: IV 1050 1050 50 NaCl 0.9% W/KCl 20Meq 1000ML 1, 1000 1000 000 ml @ 150 mls/hr IV .Q6H40M [facility] Rx#:[id number] Zosyn 3.375 gm In Dextrose 5% 50 50 50 in Water 50 ml @ 100 mls/hr IV Q6H [facility] Rx#:[id number] Oral 1660 500 600 Output: Void Amount 500 Urine/Stool Mix 301 254 5397 Other: Meal Dinner Breakfast Percent of Meal Consumed 75% 100% Feeding Ability Independent Urine Appearance Clear Urine Color Dark Yellow Stool Size Small Small Stool Color Dark Red Blood Brown Dark Red Blood Stool Consistency Liquid Liquid Watery # Bowel Movements 1 1 - Additional findings Additional findings: General - No acute distress Eyes - PERRLA, EOM intact ENT no rhinorrhea, no noticeable or palpable swelling, no redness or rash around throat or on face Neck supple, no JVD, no thyromegaly Respiratory: Lungs -clear, no wheezing or crackles. Cardiovascular - RRR no m/r/g, GI - Normal bowel sounds, no distended, soft, no tenderness. Extremeties - No edema, cyanosis or clubbing Hemo/lymphatic/immune no lymphadenopathy Neurological Alert and oriented x 3, no focal neurological deficits. Psychiatry flat affect Medical - PN: Obj Da - Labs CBC & Chem 7: 09/17/19 04:33 09/17/19 04:33 Labs: Abnormal Lab Results 09/17/19 09/17/19 09/16/19 04:33 04:33 07:06 WBC 12.4 H RBC 4.14 L Hgb 11.8 L Hct 35.0 L Gran % 81.6 H Lymph % (Auto) 10.3 L [place] % (Auto) Gran # 10.09 H Lymph # (Auto) 1.28 L [place] # (Auto) 0.97 H Sodium Potassium Chloride Anion Gap BUN Creatinine 0.6 L Glucose 163 H 156 H Calcium 8.0 L 8.2 L Magnesium ALT 51 H Albumin 2.5 L 2.6 L Globulin Albumin/Globulin Ratio 0.7 L 0.7 L Urine Ketones Urine Occult Blood Urine RBC 09/16/19 09/16/19 09/15/19 04:10 04:10 05:00 WBC RBC 4.43 L Hgb 12.9 L Hct 37.9 L Gran % 85.7 H Lymph % (Auto) 8.1 L [place] % (Auto) Gran # 8.60 H Lymph # (Auto) 0.81 L [place] # (Auto) Sodium 132 L Potassium 3.0 L Chloride 93 L Anion Gap 17.0 H BUN 4 L Creatinine Glucose 115 H Calcium 8.0 L Magnesium 2.6 H ALT Albumin 2.7 L Globulin 3.8 H Albumin/Globulin Ratio 0.7 L Urine Ketones Urine Occult Blood Urine RBC 09/15/19 09/15/19 09/14/19 05:00 00:20 18:30 WBC 13.5 H 13.2 H RBC 4.47 L Hgb 13.1 L Hct 37.4 L 39.9 L Gran % Lymph % (Auto) 7.7 L [place] % (Auto) 17.2 H Gran # 10.09 H Lymph # (Auto) 1.04 L [place] # (Auto) 2.32 H Sodium Potassium Chloride Anion Gap BUN Creatinine Glucose Calcium Magnesium ALT Albumin Globulin Albumin/Globulin Ratio Urine Ketones 20 A Urine Occult Blood 0.03 A Urine RBC 2 H 09/14/19 09/14/19 15:33 15:33 WBC 12.2 H RBC Hgb Hct Gran % Lymph % (Auto) 13.5 L [place] % (Auto) 12.6 H Gran # 8.87 H Lymph # (Auto) [place] # (Auto) 1.54 H Sodium 128 L Potassium 3.0 L Chloride 87 L Anion Gap 18.0 H BUN 5 L Creatinine Glucose 137 H Calcium Magnesium ALT Albumin Globulin 4.0 H Albumin/Globulin Ratio 0.9 L Urine Ketones Urine Occult Blood Urine RBC Meds: Medications Potassium Chloride/Sodium Chloride (Nacl 0.9% W/Kcl 20meq 1000ml) 1,000 mls @ 150 mls/hr IV .Q6H40M [facility] Last Admin: 09/17/19 03:44 Dose: 150 mls/hr Documented by: Piperacillin Sod/Tazobactam (Sod 3.375 gm/ Dextrose) 50 mls @ 100 mls/hr IV Q6H [facility]; Protocol Last Infusion: 09/17/19 06:37 Dose: Infused Documented by: Methylprednisolone Sodium Succinate (Solu-Medrol) 62.5 mg IV Q12 [facility] Last Admin: 09/16/19 20:33 Dose: 62.5 mg Documented by: Morphine Sulfate (Morphine) 2 mg IV Q4HP PRN; Protocol PRN Reason: Per Pain Protocol Last Admin: 09/16/19 21:33 Dose: 2 mg Documented by: Naloxone HCl (Narcan) 0.1 mg IV Q2MIN PRN PRN Reason: Opiate Reversal Ondansetron HCl (Zofran) 4 mg IV Q6HP PRN PRN Reason: Nausea And Vomiting Pantoprazole Sodium (Protonix) 40 mg PO QAMAC [facility] Last Admin: 09/17/19 07:16 Dose: 40 mg Documented by: Sodium Chloride (Saline Flush) 10 ml IV Q8 [facility] Last Admin: 09/17/19 05:35 Dose: Not Given Documented by: Tramadol HCl (Ultram) 50 mg PO Q6HP PRN PRN Reason: Pain Medical - PN: A/P - Time Spent With Patient Total time spent is greater than 50% in coordination of care (as documented) at patient's floor/unit and/or counseling patient: - Narrative A/P Narrative: Assessment: 1. Colitis, etiologies unknown, infectious colitis or ulcerative colitis? K52.9 2. Bloody diarrhea R19.7 3. Hyponatremia E87.1 4. Hypokalemia E87.6 5. 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 Tobacco use Z72.0 7. Sinus bradycardia Plan: 1. CT abdomen showed entire colitis, infectious colitis or ulcerative colitis? Decreased IV fluid + KCl to 125ml/hr As per general surgeon Dr. Rosales, Clear liquids until patient is improved ENLIVE dietary supplement Solu-Medrol 60 mg IV every 12 (since 09/14) Continue Zosyn Pain management including IV morphine Blood culture negative. [place] WNL Dr. Rosales will do colonoscope for him tomorrow. 2. Continue Secukinumab for psoriasis. 3. K supplementation Repeat electrolytes in the morning 4. DVT prophylaxis: SCD. No pharmacological prophylaxis due to GI bleeding. Encouraged doing more exercises. PT. 5. CODE STATUS: Full Medical - PN: Qual - VTE Deep Vein Thrombosis/Pulmonary Embolism Present on Admission: No
[2019-09-17] MEDS: morphine 2 MG/ML VIAL IV PRN (13:47)
--- NOTE | 2019-09-17 16:32 | General Surgery Progress Note ---
Subjective Patient reports: feels better, pain is less, tolerating liquids well, flatus, diarrhea, blood in stool, afebrile Narrative: Note initiated : 09/17/19 at 4:29 pm Service Date, if different from initiated Date: [] Patient: Mamadou Day 39 y/o M admitted on 09/14/19 for abd pain. Chief Complaint: [patient is stable she should develop more bloody diarrhea. White blood count is 12.4, hemoglobin 11, hematocrit, BUN 9, creatinine 0.6. Stool showed rare white blood cell] Objective Temp Pulse Resp BP Pulse Ox 97.9 F 53 L 16 125/83 94 09/17/19 16:03 09/17/19 12:45 09/17/19 16:03 09/17/19 16:03 09/17/19 16:03 - Additional Data Intake & Output - Last 24 hours: Intake & Output 09/15/19 09/16/19 09/17/19 09/18/19 05:59 05:59 05:59 05:59 Intake Total 2158 6178 5595 1944 Output Total 1200 1900 1900 1575 Balance 958 4278 3695 369 Weight 228 lb 8 oz 230 lb 11.2 oz 234 lb - General physical appearance well developed, well nourished, no distress - Eyes PERRL, normal ocular movement - ENT normal pinna, normal nares, normal mucosa, no hearing loss, no congestion - Neck no masses, no bruits, trachea midline, no lymphadenopathy, no venous distension - Respiratory normal expansion, normal respiratory effort, clear to percussion, clear to auscultation - Cardiovascular Cardiovascular exam: Present: normal rate and rhythm, RRR, +S1, +S2. Absent: JVD, tachycardia - Abdomen non tender (no abdominal tenderness noted; good active bowel sounds), bowel sounds (present), surgical scars (none), masses (none) - Integumentary no rash, no growths, no abnormal pigmentation - Neurologic normal coordination, normal sensation - Musculoskeletal normal gait, normal posture - Psychiatric oriented to time, oriented to person, oriented to place, speech is normal, memory intact - Labs 09/17/19 04:33 09/17/19 04:33 Diabetes panel 09/17/19 Range/Units 04:33 Sodium 136 (133-145) mmol/L Potassium 4.1 (3.3-5.1) mmol/L Chloride 101 (96-108) mmol/L Carbon Dioxide 23 (22-30) mmol/L BUN 9 (6-20) mg/dl Creatinine 0.6 L (0.7-1.2) mg/dl Glucose 163 H (70-105) mg/dL Calcium 8.0 L (8.6-10.4) mg/dl AST 30 (0-37) U/l ALT 51 H (0-40) U/l Alkaline Phosphatase 80 (39-117) U/L Total Protein 6.1 (5.9-8.4) gm/dL Albumin 2.5 L (3.2-5.2) gm/dL Calcium panel 09/17/19 Range/Units 04:33 Calcium 8.0 L (8.6-10.4) mg/dl Albumin 2.5 L (3.2-5.2) gm/dL Pituitary panel 09/17/19 Range/Units 04:33 Sodium 136 (133-145) mmol/L Potassium 4.1 (3.3-5.1) mmol/L Chloride 101 (96-108) mmol/L Carbon Dioxide 23 (22-30) mmol/L BUN 9 (6-20) mg/dl Creatinine 0.6 L (0.7-1.2) mg/dl Glucose 163 H (70-105) mg/dL Calcium 8.0 L (8.6-10.4) mg/dl Adrenal panel 09/17/19 Range/Units 04:33 Sodium 136 (133-145) mmol/L Potassium 4.1 (3.3-5.1) mmol/L Chloride 101 (96-108) mmol/L Carbon Dioxide 23 (22-30) mmol/L BUN 9 (6-20) mg/dl Creatinine 0.6 L (0.7-1.2) mg/dl Glucose 163 H (70-105) mg/dL Calcium 8.0 L (8.6-10.4) mg/dl Total Bilirubin 0.2 (0.0-1.0) mg/dL AST 30 (0-37) U/l ALT 51 H (0-40) U/l Alkaline Phosphatase 80 (39-117) U/L Total Protein 6.1 (5.9-8.4) gm/dL Albumin 2.5 L (3.2-5.2) gm/dL Assessment and Plan (1) Ulcerative pancolitis Status: Acute Assessment and plan: Patient continues to improve. We'll continue present therapy. Pentasa 500 mg 4 times a day orally Delayed prep for colonoscopy at this time Current Visit: Yes (2) Psoriasis with arthropathy Status: Acute Current Visit: No (3) Asthma Status: Resolved Current Visit: No - Time Spent With Patient Total time spent is greater than 50% in coordination of care (as documented) at patient's floor/unit and/or counseling patient:
[2019-09-17] MEDS: MESALAMINE 500 MG CAPSULE PO SCH ×2 (16:56→20:31)
[2019-09-18] MEDS: PIPERACILLIN SODIUM/TAZOBACTAM 3.375 GM in DEXTROSE 5% IN WATER 50 ML IV SCH ×5 (00:32→23:53)
[2019-09-18] MEDS: 0.9 % SODIUM CHLORIDE 10 ML SYRINGE IV SCH ×3 (04:47→21:20)
[2019-09-18] MEDS: NACL 0.9% W/KCL 20MEQ 1,000 ML IV SCH (04:53)
[2019-09-18] MEDS: PANTOPRAZOLE 40 MG TABLET PO SCH (07:11)
[2019-09-18 08:13] LABS: Basophils # (Auto) 0.02 K/mcL (0.00-0.30); Basophils % (Auto) 0.2 % (0.0-2.0); Eosinophils # (Auto) 0 K/mcL (0.00-0.70); Eosinophils % (Auto) 0 % (0.0-7.0); Granulocytes % (Auto) 78.1 % (38.0-78.0); Hematocrit 36.5 % (40.1-51.0); Lymphocytes # (Auto) 1.44 K/mcL (1.50-4.80); Lymphocytes % (Auto) 13.9 % (15.5-49.0); Mean Cell Volume 86.7 fL (80.0-100.0); Mean Corpuscular HGB Conc 32.9 g/dL (31.0-36.0); Mean Platelet Volume 9.3 fL (7.4-10.4); Monocytes # (Auto) 0.81 K/mcL (0.10-0.90); Monocytes % (Auto) 7.8 % (1.0-12.0); Platelet Count 394 K/mcL (140-440); RBC 4.21 M/mcL (4.63-6.08); Red Cell Distribution Width 12.5 % (11.5-14.5); WBC 10.4 K/mcL (4.50-11.00)
--- NOTE | 2019-09-18 08:21 | Internal Med Progress Note ---
Medical - PN: Subj Patient information: Note initiated : 09/18/19 at 8:13 am Service Date, if different from initiated Date: [] Patient: Mamadou Day a 39 y/o M admitted on 09/14/19 for abd pain. Chief Complaint: [] Interval history: Mr. Day is a 39 year old M with a history of plaque psoriasis and tobacco use who presented to the ER due to abdominal pain and bloody diarrhea for 2.5 weeks. As per patient, patient started to have lower abdominal pain associated with the bloody diarrhea 2.5 weeks ago. The abdominal pain is almost constant, sharp in nature and 2-8 out of 10 in severity. Movement makes more pain. he has been having diarrhea with a small amount of dark red to bright red blood, 10-30 times a day. He went to see a provider on 09/01/19. He was diagnosed with abdominal pain and bloody diarrhea. His stool studies showed H. pylori negative, positive guaiac and negative stool culture. Otherwise he is fine. Denies headache, dizziness, chest pain, shortness of breath, nausea, vomiting, fever, or dysuria. No recent travel or sick contact. In the ER, CT abdomen showed colitis. 1 L normal saline was given. When I saw this patient in the ED, other than the symptoms mentioned above, he was fine. She has been lost 20 pounds over the past 2.5 weeks. 09/14 Today patient feels a little bit better. He still has mild fever and tachycardia. Blood pressure is improved. Still has bloody diarrhea He was initially admitted to [facility] due to colitis yesterday afternoon. But he was upgraded to PCU at midnight due to tachycardia, fever, and soft blood pressure. White blood cells 13.5, 12.5 on admission Lactic acid 0.9, 0.8 Potassium 3.0 Unknown etiology for colitis, continue Zosyn at this moment. Surgeon Dr. Rosales will see patient. 09/15 Patient feels better. Less abdominal pain. Less frequent diarrhea with less bloody in the stool. Vital signs are stable Leukocytosis resolved today Hemoglobin 12.9 09/16 Continue to improve. Less pain, less bloody diarrhea, less nausea. Denies feve r/chills. Bradycardia, EKG showed sinus tachy. WBC 12.4 from 10.0 yesterday. He started steroid 2 days ago. Discussed with Dr. Rosales who will do colonoscopy for him tomorrow. Started clear liquid. 09/17 Patient feels better. Less frequent diarrhea, he denied to see blood in stool this morning. Less abdominal pain. Denies nausea, vomiting, fever or chills. Heart rate between 40-50, asymptomatic. Denies dizziness, headache, or palpitation. Do not know any problem with heart rate in the past. He was initially scheduled for colonoscopy today but Dr. Rosales canceled because there is a high risk for colonoscopy at this moment. Dr. Rosales added mesalamine 500 mg 4 times daily. He needs to stay in the hospital for a few more days. Encouraged more exercise Review of systems: Positive for abdominal pain and bloody diarrhea. All other systems were reviewed and are negative. - Constitutional Vitals: Vital Signs Temp Pulse Resp BP Pulse Ox 97.0 F 48 L 20 136/96 96 09/18/19 03:39 09/18/19 03:38 09/18/19 03:39 09/18/19 03:39 09/18/19 03:39 Period Temp Pulse Resp BP Sys/Mckinney Pulse Ox Last 24 Hr 97.0 F-97.9 F 48-53 16-20 109-143/77-107 92-97 Intake and Output 09/17/19 09/18/19 09/18/19 21:59 05:59 13:59 Intake Total 1751 1430 415 Output Total 700 1100 Balance 1051 330 415 Weight 107.91 kg Intake & Output: Intake & Output 09/17/19 09/18/19 09/18/19 21:59 05:59 13:59 Intake Total 1751 1430 415 Output Total 700 1100 Balance 1051 330 415 Weight 107.91 kg Intake: IV 906 1100 415 NaCl 0.9% W/KCl 20Meq 1000ML 1, 856 1000 415 000 ml @ 125 mls/hr IV .Q8H [facility] Rx#:[id number] Zosyn 3.375 gm In Dextrose 5% 50 100 in Water 50 ml @ 100 mls/hr IV Q6H [facility] Rx#:[id number] Oral 845 330 Output: Void Amount 450 950 Urine/Stool Mix 250 50 Stool 100 Other: Meal Dinner Percent of Meal Consumed 75% Feeding Ability Independent Urine Appearance Clear Clear Urine Color Dark Yellow Dark Yellow Stool Size Moderate Stool Color Dark Red Blood Brown Dark Red Blood Stool Consistency Liquid # Bowel Movements 1 - Additional findings Additional findings: General - No acute distress Eyes - PERRLA, EOM intact ENT no rhinorrhea, no noticeable or palpable swelling, no redness or rash around throat or on face Neck supple, no JVD, no thyromegaly Respiratory: Lungs -clear, no wheezing or crackles. Cardiovascular - RRR no m/r/g, GI - Normal bowel sounds, no distended, soft, no tenderness. Extremeties - No edema, cyanosis or clubbing Hemo/lymphatic/immune no lymphadenopathy Neurological Alert and oriented x 3, no focal neurological deficits. Psychiatry flat affect Medical - PN: Obj Da - Labs CBC & Chem 7: 09/18/19 05:03 09/17/19 04:33 Labs: Abnormal Lab Results 09/18/19 09/17/19 09/17/19 05:03 04:33 04:33 WBC 12.4 H RBC 4.21 L 4.14 L Hgb 12.0 L 11.8 L Hct 36.5 L 35.0 L Gran % 78.1 H 81.6 H Lymph % (Auto) 13.9 L 10.3 L Gran # 8.12 H 10.09 H Lymph # (Auto) 1.44 L 1.28 L [place] # (Auto) 0.97 H Creatinine 0.6 L Glucose 163 H Calcium 8.0 L Magnesium ALT 51 H Albumin 2.5 L Albumin/Globulin Ratio 0.7 L 09/16/19 09/16/19 09/16/19 07:06 04:10 04:10 WBC RBC 4.43 L Hgb 12.9 L Hct 37.9 L Gran % 85.7 H Lymph % (Auto) 8.1 L Gran # 8.60 H Lymph # (Auto) 0.81 L [place] # (Auto) Creatinine Glucose 156 H Calcium 8.2 L Magnesium 2.6 H ALT Albumin 2.6 L Albumin/Globulin Ratio 0.7 L Meds: Medications Piperacillin Sod/Tazobactam (Sod 3.375 gm/ Dextrose) 50 mls @ 100 mls/hr IV Q6H [facility]; Protocol Last Infusion: 09/18/19 05:23 Dose: Infused Documented by: Mesalamine (Pentasa) 500 mg PO QID [facility] Last Admin: 09/17/19 20:31 Dose: 500 mg Documented by: Methylprednisolone Sodium Succinate (Solu-Medrol) 62.5 mg IV Q12 [facility] Last Admin: 09/17/19 20:32 Dose: 62.5 mg Documented by: Morphine Sulfate (Morphine) 2 mg IV Q4HP PRN; Protocol PRN Reason: Per Pain Protocol Last Admin: 09/17/19 13:47 Dose: 2 mg Documented by: Naloxone HCl (Narcan) 0.1 mg IV Q2MIN PRN PRN Reason: Opiate Reversal Pantoprazole Sodium (Protonix) 40 mg PO QAMAC [facility] Last Admin: 09/18/19 07:11 Dose: 40 mg Documented by: Sodium Chloride (Saline Flush) 10 ml IV Q8 [facility] Last Admin: 09/18/19 04:47 Dose: Not Given Documented by: Tramadol HCl (Ultram) 50 mg PO Q6HP PRN PRN Reason: Pain Medical - PN: A/P - Time Spent With Patient Total time spent is greater than 50% in coordination of care (as documented) at patient's floor/unit and/or counseling patient: - Narrative A/P Narrative: Assessment: 1. Colitis, etiologies unknown, infectious colitis or ulcerative colitis? K52.9 2. Bloody diarrhea R19.7 3. Hyponatremia E87.1 4. Hypokalemia E87.6 5. 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 Tobacco use Z72.0 7. Sinus bradycardia Plan: 1. CT abdomen showed entire colitis, infectious colitis or ulcerative colitis? As per general surgeon Dr. Rosales, Clear liquids until patient is improved ENLIVE dietary supplement Solu-Medrol 60 mg IV every 12 (since 09/14) Continue Zosyn Pain management including IV morphine Blood culture negative. LA WNL He was initially scheduled for colonoscopy today but Dr. Rosales canceled because there is a high risk for colonoscopy at this moment. Dr. Rosales added mesalamine 500 mg 4 times daily. He needs to stay in the hospital for a few more days. 2. Continue Secukinumab for psoriasis. 3. Repeat electrolytes in the morning 4. Heart rate between 40-50, asymptomatic. Denies dizziness, headache, or palpitation. Do not know any problem with heart rate in the past. EKG sinus bradycardia quality assurance monitor final f/u with cardiology 5. DVT prophylaxis: SCD. No pharmacological prophylaxis due to GI bleeding. Encouraged doing more exercises. PT. 6. CODE STATUS: Full Medical - PN: Qual - VTE Deep Vein Thrombosis/Pulmonary Embolism Present on Admission: No
[2019-09-18 08:26] LABS: ALT/SGPT 45 U/l (0-40); AST/SGOT 16 U/l (0-37); Albumin 2.6 gm/dL (3.2-5.2); Albumin/Globulin Ratio 0.8 (1.0-2.3); Alkaline Phosphatase 60 U/L (39-117); Bilirubin,Total 0.2 mg/dL (0.0-1.0); Blood Urea Nitrogen 8 mg/dl (6-20); Calcium 8.1 mg/dl (8.6-10.4); Carbon Dioxide 20 mmol/L (22-30); Chloride 100 mmol/L (96-108); Globulin 3.1 gm/dL (2.2-3.7); Glomerular Filtration Rate 137; Glucose 143 mg/dL (70-105)
[2019-09-18] MEDS: methylPREDNISolone SOD SUCC 125 MG/2 ML VIAL IV SCH ×2 (09:23→21:20)
[2019-09-18] MEDS: MESALAMINE 500 MG CAPSULE PO SCH ×4 (09:23→21:20)
--- NOTE | 2019-09-18 12:52 | Internal Med Progress Note ---
Medical - PN: Subj Patient information: Note initiated : 09/18/19 at 12:44 pm Service Date, if different from initiated Date: [] Patient: Mamadou Day a 39 y/o M admitted on 09/14/19 for abd pain. Chief Complaint: [] Interval history: Mr. Day is a 39 year old M with a history of plaque psoriasis and tobacco use who presented to the ER due to abdominal pain and bloody diarrhea for 2.5 weeks. As per patient, patient started to have lower abdominal pain associated with the bloody diarrhea 2.5 weeks ago. The abdominal pain is almost constant, sharp in nature and 2-8 out of 10 in severity. Movement makes more pain. he has been having diarrhea with a small amount of dark red to bright red blood, 10-30 times a day. He went to see a provider on 09/01/19. He was diagnosed with abdominal pain and bloody diarrhea. His stool studies showed H. pylori negative, positive guaiac and negative stool culture. Otherwise he is fine. Denies headache, dizziness, chest pain, shortness of breath, nausea, vomiting, fever, or dysuria. No recent travel or sick contact. In the ER, CT abdomen showed colitis. 1 L normal saline was given. When I saw this patient in the ED, other than the symptoms mentioned above, he was fine. She has been lost 20 pounds over the past 2.5 weeks. 09/14 Today patient feels a little bit better. He still has mild fever and tachycardia. Blood pressure is improved. Still has bloody diarrhea He was initially admitted to [facility] due to colitis yesterday afternoon. But he was upgraded to PCU at midnight due to tachycardia, fever, and soft blood pressure. White blood cells 13.5, 12.5 on admission Lactic acid 0.9, 0.8 Potassium 3.0 Unknown etiology for colitis, continue Zosyn at this moment. Surgeon Dr. Rosales will see patient. 09/15 Patient feels better. Less abdominal pain. Less frequent diarrhea with less bloody in the stool. Vital signs are stable Leukocytosis resolved today Hemoglobin 12.9 09/16 Continue to improve. Less pain, less bloody diarrhea, less nausea. Denies feve r/chills. Bradycardia, EKG showed sinus tachy. WBC 12.4 from 10.0 yesterday. He started steroid 2 days ago. Discussed with Dr. Rosales who will do colonoscopy for him tomorrow. Started clear liquid. 09/17 Patient feels better. Less frequent diarrhea, he denied to see blood in stool this morning. Less abdominal pain. Denies nausea, vomiting, fever or chills. Heart rate between 40-50, asymptomatic. Denies dizziness, headache, or palpitation. Do not know any problem with heart rate in the past. He was initially scheduled for colonoscopy today but Dr. Rosales canceled because there is a high risk for colonoscopy at this moment. Dr. Rosales added mesalamine 500 mg 4 times daily. He needs to stay in the hospital for a few more days. Encouraged more exercise 09/18 - Constitutional Vitals: Vital Signs Temp Pulse Resp BP Pulse Ox 98.4 F 56 L 18 119/78 96 09/18/19 12:00 09/18/19 12:00 09/18/19 12:00 09/18/19 12:00 09/18/19 12:00 Period Temp Pulse Resp BP Sys/Mckinney Pulse Ox Last 24 Hr 97.0 F-98.4 F 48-56 16- 109-144/77-107 92-99 Intake and Output 09/17/19 09/18/19 09/18/19 21:59 05:59 13:59 Intake Total 1751 1430 655 Output Total 700 1100 875 Balance 1051 330 -220 Weight 107.91 kg Intake & Output: Intake & Output 09/17/19 09/18/19 09/18/19 21:59 05:59 13:59 Intake Total 1751 1430 655 Output Total 700 1100 875 Balance 1051 330 -220 Weight 107.91 kg Intake: IV 906 1100 415 NaCl 0.9% W/KCl 20Meq 1000ML 1, 856 1000 415 000 ml @ 125 mls/hr IV .Q8H [facility] Rx#:[id number] Zosyn 3.375 gm In Dextrose 5% 50 100 in Water 50 ml @ 100 mls/hr IV Q6H [facility] Rx#:[id number] Oral 845 330 240 Output: Void Amount 450 950 275 Urine/Stool Mix 250 50 600 Stool 100 Other: Meal Dinner Breakfast Percent of Meal Consumed 75% Feeding Ability Independent Urine Appearance Clear Clear Clear Urine Color Dark Yellow Dark Yellow Straw Urine Odor Normal Stool Size Moderate Small Stool Color Dark Red Blood Brown Brown Dark Red Blood Stool Consistency Liquid Liquid Loose # Bowel Movements 1 Exam: General: Alert, Awake, No acute Distress Eyes/N/T: EOMI, Head/Neck: neck supple, CV: RRR, No murmurs, Pulm: Clear b/l, no wheezing/rhonchi/rales Abd: soft, nontender, +BS x4 Ext: no clubbing/cyanosis/edema Neuro: Alert, no focal deficits, moves all extremities, Skin: warm/dry Medical - PN: Obj Da - Labs CBC & Chem 7: 09/18/19 05:03 09/18/19 05:03 Labs: Abnormal Lab Results 09/18/19 09/18/19 09/17/19 05:03 05:03 04:33 WBC RBC 4.21 L Hgb 12.0 L Hct 36.5 L Gran % 78.1 H Lymph % (Auto) 13.9 L Gran # 8.12 H Lymph # (Auto) 1.44 L Teller # (Auto) Sodium 132 L Carbon Dioxide 20 L Creatinine 0.5 L 0.6 L Glucose 143 H 163 H Calcium 8.1 L 8.0 L Magnesium ALT 45 H 51 H Total Protein 5.7 L Albumin 2.6 L 2.5 L Albumin/Globulin Ratio 0.8 L 0.7 L 09/17/19 09/16/19 09/16/19 04:33 07:06 04:10 WBC 12.4 H RBC 4.14 L Hgb 11.8 L Hct 35.0 L Gran % 81.6 H Lymph % (Auto) 10.3 L Gran # 10.09 H Lymph # (Auto) 1.28 L Teller # (Auto) 0.97 H Sodium Carbon Dioxide Creatinine Glucose 156 H Calcium 8.2 L Magnesium 2.6 H ALT Total Protein Albumin 2.6 L Albumin/Globulin Ratio 0.7 L 09/16/19 04:10 WBC RBC 4.43 L Hgb 12.9 L Hct 37.9 L Gran % 85.7 H Lymph % (Auto) 8.1 L Gran # 8.60 H Lymph # (Auto) 0.81 L Teller # (Auto) Sodium Carbon Dioxide Creatinine Glucose Calcium Magnesium ALT Total Protein Albumin Albumin/Globulin Ratio Meds: Medications Piperacillin Sod/Tazobactam (Sod 3.375 gm/ Dextrose) 50 mls @ 100 mls/hr IV Q6H [facility]; Protocol Last Infusion: 09/18/19 05:23 Dose: Infused Documented by: Mesalamine (Pentasa) 500 mg PO QID [facility] Last Admin: 09/18/19 09:23 Dose: 500 mg Documented by: Methylprednisolone Sodium Succinate (Solu-Medrol) 62.5 mg IV Q12 [facility] Last Admin: 09/18/19 09:23 Dose: 62.5 mg Documented by: Morphine Sulfate (Morphine) 2 mg IV Q4HP PRN; Protocol PRN Reason: Per Pain Protocol Last Admin: 09/17/19 13:47 Dose: 2 mg Documented by: Naloxone HCl (Narcan) 0.1 mg IV Q2MIN PRN PRN Reason: Opiate Reversal Pantoprazole Sodium (Protonix) 40 mg PO QAMAC [facility] Last Admin: 09/18/19 07:11 Dose: 40 mg Documented by: Sodium Chloride (Saline Flush) 10 ml IV Q8 [facility] Last Admin: 09/18/19 04:47 Dose: Not Given Documented by: Tramadol HCl (Ultram) 50 mg PO Q6HP PRN PRN Reason: Pain Medical - PN: A/P - Time Spent With Patient Total time spent is greater than 50% in coordination of care (as documented) at patient's floor/unit and/or counseling patient: - Narrative A/P Narrative: A: *Colitis: etiologies unknown, infectious or ulcerative colitis -CT with colitis from cecum to distal sigmoid -BC neg *Bloody diarrhea:: 2/2 above *Hyponatremia: *Hypokalemia: *Plaque psoriasis w/arthoropathy: *Tobacco abuse: *Sinus bradycardia: -Heart rate between 40-50, asymptomatic. Denies dizziness, headache, or palpitation. Do not know any problem with heart rate in the past. Plan: -As per general surgeon Dr. Rosales, -Clear liquids until patient is improved -Solu-Medrol 60 mg IV every 12 (since 09/14), and now on Mesalamine per Surgery -autoimmune/vasculitis labs pending -Continue Zosyn -Pain management including IV morphine -He was initially scheduled for colonoscopy today but Dr. Rosales canceled because there is a high risk for colonoscopy at this moment. Dr. Rosales added mesalamine 500 mg 4 times daily. He needs to stay in the hospital for a few more days. -ENLIVE dietary supplement -Continue Secukinumab for psoriasis. -alarm security or surveillance monitor, f/u with cardiology -pt/ot -ppx: SCD, No pharmacological prophylaxis due to GI bleeding. Full Code Medical - PN: Qual - VTE Deep Vein Thrombosis/Pulmonary Embolism Present on Admission: No
--- NOTE | 2019-09-18 15:02 | General Surgery Progress Note ---
Subjective Patient reports: feels better, pain is less, tolerating liquids well, flatus, diarrhea, afebrile Narrative: Note initiated : 09/18/19 at 3:00 pm Service Date, if different from initiated Date: [] Patient: Mamadou Day 39 y/o M admitted on 09/14/19 for abd pain. Chief Complaint: [patient continues to improve. He is afebrile. His white blood count is normal. He states that his overall strength is better. Bowel movements with more substance. White blood count 10.4 ,hemoglobin 12, hematocrit 36.5, BUN 8, creatinine 0.5.] Objective Temp Pulse Resp BP Pulse Ox 98.4 F 56 L 18 119/78 96 09/18/19 12:00 09/18/19 12:00 09/18/19 12:00 09/18/19 12:00 09/18/19 12:00 - Additional Data Intake & Output - Last 24 hours: Intake & Output 09/16/19 09/17/19 09/18/19 09/19/19 05:59 05:59 05:59 05:59 Intake Total 6178 5595 5025 705 Output Total 1900 1900 3275 1000 Balance 4278 3695 1750 -295 Weight 230 lb 11.2 oz 234 lb 237 lb 14.4 oz - General physical appearance well developed, well nourished, no distress - Eyes PERRL, normal ocular movement - Neck no masses, no bruits, trachea midline, no lymphadenopathy, no venous distension - Respiratory normal expansion, normal respiratory effort, clear to auscultation - Cardiovascular Cardiovascular exam: Present: normal rate and rhythm, RRR, +S1, +S2. Absent: JVD, tachycardia - Abdomen non tender, bowel sounds (present), surgical scars (none), masses (none) - Integumentary no rash, no growths, no abnormal pigmentation - Neurologic normal coordination, normal sensation - Musculoskeletal normal gait, normal posture - Psychiatric oriented to time, oriented to person, oriented to place, speech is normal, memory intact - Labs 09/18/19 05:03 09/18/19 05:03 Diabetes panel 09/18/19 Range/Units 05:03 Sodium 132 L (133-145) mmol/L Potassium 4.7 (3.3-5.1) mmol/L Chloride 100 (96-108) mmol/L Carbon Dioxide 20 L (22-30) mmol/L BUN 8 (6-20) mg/dl Creatinine 0.5 L (0.7-1.2) mg/dl Glucose 143 H (70-105) mg/dL Calcium 8.1 L (8.6-10.4) mg/dl AST 16 (0-37) U/l ALT 45 H (0-40) U/l Alkaline Phosphatase 60 (39-117) U/L Total Protein 5.7 L (5.9-8.4) gm/dL Albumin 2.6 L (3.2-5.2) gm/dL Calcium panel 09/18/19 Range/Units 05:03 Calcium 8.1 L (8.6-10.4) mg/dl Albumin 2.6 L (3.2-5.2) gm/dL Pituitary panel 09/18/19 Range/Units 05:03 Sodium 132 L (133-145) mmol/L Potassium 4.7 (3.3-5.1) mmol/L Chloride 100 (96-108) mmol/L Carbon Dioxide 20 L (22-30) mmol/L BUN 8 (6-20) mg/dl Creatinine 0.5 L (0.7-1.2) mg/dl Glucose 143 H (70-105) mg/dL Calcium 8.1 L (8.6-10.4) mg/dl Adrenal panel 09/18/19 Range/Units 05:03 Sodium 132 L (133-145) mmol/L Potassium 4.7 (3.3-5.1) mmol/L Chloride 100 (96-108) mmol/L Carbon Dioxide 20 L (22-30) mmol/L BUN 8 (6-20) mg/dl Creatinine 0.5 L (0.7-1.2) mg/dl Glucose 143 H (70-105) mg/dL Calcium 8.1 L (8.6-10.4) mg/dl Total Bilirubin 0.2 (0.0-1.0) mg/dL AST 16 (0-37) U/l ALT 45 H (0-40) U/l Alkaline Phosphatase 60 (39-117) U/L Total Protein 5.7 L (5.9-8.4) gm/dL Albumin 2.6 L (3.2-5.2) gm/dL - Imaging Abdominal x-ray: report reviewed Assessment and Plan (1) Ulcerative pancolitis Status: Acute Assessment and plan: Patient continues to improve. We'll continue present therapy. Pentasa 500 mg 4 times a day orally Delayed prep for colonoscopy at this time Trial of GI soft diet Current Visit: Yes (2) Psoriasis with arthropathy Status: Acute Current Visit: No (3) Asthma Status: Resolved Current Visit: No - Time Spent With Patient Total time spent is greater than 50% in coordination of care (as documented) at patient's floor/unit and/or counseling patient:
[2019-09-19] MEDS: PIPERACILLIN SODIUM/TAZOBACTAM 3.375 GM in DEXTROSE 5% IN WATER 50 ML IV SCH ×4 (06:05→23:56)
[2019-09-19] MEDS: 0.9 % SODIUM CHLORIDE 10 ML SYRINGE IV SCH ×3 (06:05→21:10)
[2019-09-19 07:06] LABS: Basophils # (Auto) 0.11 K/mcL (0.00-0.30); Basophils % (Auto) 0.8 % (0.0-2.0); Eosinophils # (Auto) 0.01 K/mcL (0.00-0.70); Eosinophils % (Auto) 0.1 % (0.0-7.0); Granulocytes % (Auto) 70.3 % (38.0-78.0); Hemoglobin 14.5 g/dL (13.7-17.5); Lymphocytes # (Auto) 2.28 K/mcL (1.50-4.80); Lymphocytes % (Auto) 16.1 % (15.5-49.0); Mean Corpuscular HGB Conc 33.7 g/dL (31.0-36.0); Mean Platelet Volume 9.3 fL (7.4-10.4); Monocytes % (Auto) 12.7 % (1.0-12.0); Platelet Count 457 K/mcL (140-440); RBC 5.06 M/mcL (4.63-6.08); Red Cell Distribution Width 12.5 % (11.5-14.5); WBC 14.2 K/mcL (4.50-11.00)
[2019-09-19 07:24] LABS: Bilirubin,Direct < 0.2 mg/dL (0.0-0.3); Chloride 99 mmol/L (96-108)
[2019-09-19 07:33] LABS: ALT/SGPT 51 U/l (0-40); AST/SGOT 22 U/l (0-37); Albumin 2.9 gm/dL (3.2-5.2); Albumin/Globulin Ratio 0.8 (1.0-2.3); Alkaline Phosphatase 61 U/L (39-117); Bilirubin,Total 0.2 mg/dL (0.0-1.0); Blood Urea Nitrogen 11 mg/dl (6-20); Calcium 8.6 mg/dl (8.6-10.4); Carbon Dioxide 20 mmol/L (22-30); Globulin 3.6 gm/dL (2.2-3.7); Glomerular Filtration Rate 120; Glucose 149 mg/dL (70-105); Lactate Dehydrogenase 256 U/L (94-250); Phosphorous 3.9 mg/dL (2.7-4.5); Triglycerides 135 mg/dl (<150)
[2019-09-19] MEDS: PANTOPRAZOLE 40 MG TABLET PO SCH (07:56)
--- NOTE | 2019-09-19 08:02 | Internal Med Progress Note ---
Medical - PN: Subj Patient information: Note initiated : 09/19/19 at 7:56 am Service Date, if different from initiated Date: [] Patient: Mamadou Day a 39 y/o M admitted on 09/14/19 for abd pain. Chief Complaint: [] Interval history: Mr. Day is a 39 year old M with a history of plaque psoriasis and tobacco use who presented to the ER due to abdominal pain and bloody diarrhea for 2.5 weeks. As per patient, patient started to have lower abdominal pain associated with the bloody diarrhea 2.5 weeks ago. The abdominal pain is almost constant, sharp in nature and 2-8 out of 10 in severity. Movement makes more pain. he has been having diarrhea with a small amount of dark red to bright red blood, 10-30 times a day. He went to see a provider on 09/01/19. He was diagnosed with abdominal pain and bloody diarrhea. His stool studies showed H. pylori negative, positive guaiac and negative stool culture. Otherwise he is fine. Denies headache, dizziness, chest pain, shortness of breath, nausea, vomiting, fever, or dysuria. No recent travel or sick contact. In the ER, CT abdomen showed colitis. 1 L normal saline was given. When I saw this patient in the ED, other than the symptoms mentioned above, he was fine. She has been lost 20 pounds over the past 2.5 weeks. 09/14 Today patient feels a little bit better. He still has mild fever and tachycardia. Blood pressure is improved. Still has bloody diarrhea He was initially admitted to [facility] due to colitis yesterday afternoon. But he was upgraded to PCU at midnight due to tachycardia, fever, and soft blood pressure. White blood cells 13.5, 12.5 on admission Lactic acid 0.9, 0.8 Potassium 3.0 Unknown etiology for colitis, continue Zosyn at this moment. Surgeon Dr. Rosales will see patient. 09/15 Patient feels better. Less abdominal pain. Less frequent diarrhea with less bloody in the stool. Vital signs are stable Leukocytosis resolved today Hemoglobin 12.9 09/16 Continue to improve. Less pain, less bloody diarrhea, less nausea. Denies fever /chills. Bradycardia, EKG showed sinus tachy. WBC 12.4 from 10.0 yesterday. He started steroid 2 days ago. Discussed with Dr. Rosales who will do colonoscopy for him tomorrow. Started clear liquid. 09/17 Patient feels better. Less frequent diarrhea, he denied to see blood in stool this morning. Less abdominal pain. Denies nausea, vomiting, fever or chills. Heart rate between 40-50, asymptomatic. Denies dizziness, headache, or palpitation. Do not know any problem with heart rate in the past. He was initially scheduled for colonoscopy today but Dr. Rosales canceled because there is a high risk for colonoscopy at this moment. Dr. Rosales added mesalamine 500 mg 4 times daily. He needs to stay in the hospital for a few more days. Encouraged more exercise 09/18 Continues to feel little better today. Diarrhea improving did not notice any blood in it this morning. Abdominal pain slowly improving. No new complaints. He tolerated advancement in his diet last night to GI soft. If continues to improve patient will likely be scheduled for colonoscopy outpatient with Dr. Rosales. Review of Systems: denies headache/fever/chills/nausea/vomiting/chest or abdominal pain/cough/dyspnea/diarrhea. Otherwise see above. - Constitutional Vitals: Vital Signs Temp Pulse Resp BP Pulse Ox 97.2 F 45 L 14 118/76 96 09/19/19 07:38 09/19/19 07:38 09/19/19 07:38 09/19/19 07:38 09/19/19 07:38 Period Temp Pulse Resp BP Sys/Mckinney Pulse Ox Last 24 Hr 97.2 F-98.4 F 45-56 14-20 107-150/67-111 96-99 Intake and Output 09/18/19 09/19/19 09/19/19 21:59 05:59 13:59 Intake Total 880 490 50 Output Total 1455 1275 Balance -575 -785 50 Weight 104.961 kg Intake & Output: Intake & Output 09/18/19 09/19/19 09/19/19 21:59 05:59 13:59 Intake Total 880 490 50 Output Total 1455 1275 Balance -575 -785 50 Weight 104.961 kg Intake: Nourishment/Supplement quantity 240 (ml) IV 50 50 50 Zosyn 3.375 gm In Dextrose 5% 50 50 50 in Water 50 ml @ 100 mls/hr IV Q6H [facility] Rx#:[id number] Oral 590 440 Output: Void Amount 1375 525 Urine/Stool Mix 625 Stool 80 125 Other: Meal Dinner Percent of Meal Consumed 75% Feeding Ability Independent Nourishment/Supplement name breeze Urine Appearance Clear Clear Urine Color Bright Yellow Bright Yellow Urine Odor Normal Stool Size Small Small Stool Color Brown Brown Blood Tinged Stool Consistency Liquid Liquid Loose # Bowel Movements 1 1 Exam: General: Alert, Awake, No acute Distress Eyes/N/T: EOMI, Head/Neck: neck supple, CV: RRR, No murmurs, Pulm: Clear b/l, no wheezing/rhonchi/rales Abd: soft, nontender, +BS x4 Ext: no clubbing/cyanosis/edema Neuro: Alert, no focal deficits, moves all extremities, Skin: warm/dry Medical - PN: Obj Da - Labs CBC & Chem 7: 09/19/19 05:36 09/19/19 05:36 Labs: Abnormal Lab Results 09/19/19 09/19/19 09/18/19 05:36 05:36 05:03 WBC 14.2 H RBC Hgb Hct Plt Count 457 H Gran % Lymph % (Auto) [place] % (Auto) 12.7 H Gran # 10.00 H Lymph # (Auto) [place] # (Auto) 1.80 H Sodium 132 L 132 L Carbon Dioxide 20 L 20 L Creatinine 0.5 L Glucose 149 H 143 H Calcium 8.1 L Magnesium 2.7 H ALT 51 H 45 H Lactate Dehydrogenase 256 H Total Protein 5.7 L Albumin 2.9 L 2.6 L Albumin/Globulin Ratio 0.8 L 0.8 L 09/18/19 09/17/19 09/17/19 05:03 04:33 04:33 WBC 12.4 H RBC 4.21 L 4.14 L Hgb 12.0 L 11.8 L Hct 36.5 L 35.0 L Plt Count Gran % 78.1 H 81.6 H Lymph % (Auto) 13.9 L 10.3 L [place] % (Auto) Gran # 8.12 H 10.09 H Lymph # (Auto) 1.44 L 1.28 L [place] # (Auto) 0.97 H Sodium Carbon Dioxide Creatinine 0.6 L Glucose 163 H Calcium 8.0 L Magnesium ALT 51 H Lactate Dehydrogenase Total Protein Albumin 2.5 L Albumin/Globulin Ratio 0.7 L 09/16/19 07:06 WBC RBC Hgb Hct Plt Count Gran % Lymph % (Auto) [place] % (Auto) Gran # Lymph # (Auto) [place] # (Auto) Sodium Carbon Dioxide Creatinine Glucose 156 H Calcium 8.2 L Magnesium ALT Lactate Dehydrogenase Total Protein Albumin 2.6 L Albumin/Globulin Ratio 0.7 L Meds: Medications Piperacillin Sod/Tazobactam (Sod 3.375 gm/ Dextrose) 50 mls @ 100 mls/hr IV Q6H [facility]; Protocol Last Infusion: 09/19/19 06:35 Dose: Infused Documented by: Mesalamine (Pentasa) 500 mg PO QID [facility] Last Admin: 09/18/19 21:20 Dose: 500 mg Documented by: Methylprednisolone Sodium Succinate (Solu-Medrol) 62.5 mg IV Q12 [facility] Last Admin: 09/18/19 21:20 Dose: 62.5 mg Documented by: Morphine Sulfate (Morphine) 2 mg IV Q4HP PRN; Protocol PRN Reason: Per Pain Protocol Last Admin: 09/17/19 13:47 Dose: 2 mg Documented by: Naloxone HCl (Narcan) 0.1 mg IV Q2MIN PRN PRN Reason: Opiate Reversal Pantoprazole Sodium (Protonix) 40 mg PO QAMAC [facility] Last Admin: 09/19/19 07:56 Dose: 40 mg Documented by: Sodium Chloride (Saline Flush) 10 ml IV Q8 [facility] Last Admin: 09/19/19 06:05 Dose: 10 ml Documented by: Tramadol HCl (Ultram) 50 mg PO Q6HP PRN PRN Reason: Pain Medical - PN: A/P - Time Spent With Patient Total time spent is greater than 50% in coordination of care (as documented) at patient's floor/unit and/or counseling patient: - Narrative A/P Narrative: A: *Colitis: 2/2 ulcerative colitis severe -CT with colitis from cecum to distal sigmoid -BC/Stoo cx neg *Bloody diarrhea:: 2/2 above -stool cx neg *Hyponatremia: *Hypokalemia: improved *Plaque psoriasis w/arthropathy: *Sinus bradycardia: -Heart rate between mild 40's to 50's, asymptomatic. Denies dizziness, headache, or palpitation. Do not know any problem with heart rate in the past. Plan: -As per general surgeon Dr. Rosales, -Diet per Surgery -Solu-Medrol (decreased to 20mg tid to eventual prednisone 60mg daily upon d/c- taper per Surgery outpt), and now on Mesalamine per Surgery -autoimmune/vasculitis labs pending -Continue Zosyn, Stool cx pending -Pain management including IV morphine -He was initially scheduled for colonoscopy today but Dr. Rosales canceled because there is a high risk for colonoscopy at this moment. Dr. Rosales added mesalamine 500 mg 4 times daily. -ENLIVE dietary supplement -f/u outpt with Dr. Rosales and Referral to GI -pt/ot -ppx: SCD, No pharmacological prophylaxis due to GI bleeding. Full Code Medical - PN: Qual - VTE Deep Vein Thrombosis/Pulmonary Embolism Present on Admission: No
[2019-09-19] MEDS: MESALAMINE 500 MG CAPSULE PO SCH ×4 (08:18→21:09)
--- NOTE | 2019-09-19 10:04 | Discharge Summary ---
Medical - DS: Prov Patient information: Note initiated : 09/19/19 at 9:58 am Service Date, if different from initiated Date: [] Patient: Mamadou Day 39 y/o M admitted on 09/14/19 for abd pain. Chief Complaint: [] Date of admission: 09/14/19 19:55 Discharge date: 09/20/19 Primary care physician: Lila Burciaga DO Consults: 09/14/19 Consult to Physician [CONS] Stat Comment: Consulting Provider: Alex Cortez Reason For Exam: Physician to Consult Consult to Physician [CONS] Stat Comment: Consulting Provider: Amilcar Rosales Reason For Exam: Physician to Consult Medical - DS: Meds - Discharge Medications Prescriptions: Mesalamine [Pentasa] 500 mg PO QID #140 cap predniSONE [Prednisone] 60 mg PO QAMCC #30 tab Active and Home Medications: Home Medications secukinumab 150 mg/mL subcutaneous pen injector 300 mg SUB-Q .COMPLEX #2 ml 06/21/19 [Rx Confirmed 09/14/19 Last Taken 09/13/19] Loperamide [Imodium] 2 mg PO PRN PRN 09/14/19 [History Confirmed 09/14/19 Last Taken 09/14/19 08:15] Omeprazole [PriLOSEC] 20 mg PO BID 09/14/19 [History Confirmed 09/14/19 Last Taken 09/14/19 08:15] Home Medications secukinumab 150 mg/mL subcutaneous pen injector 300 mg SUB-Q .COMPLEX #2 ml 06/21/19 [Rx Confirmed 09/14/19 Last Taken 09/13/19] Loperamide [Imodium] 2 mg PO PRN PRN 09/14/19 [History Confirmed 09/14/19 Last Taken 09/14/19 08:15] Omeprazole [Prilosec] 20 mg PO BID 09/14/19 [History Confirmed 09/14/19 Last Taken 09/14/19 08:15] Mesalamine [Pentasa] 500 mg PO QID #140 capsule 09/19/19 [Rx Last Taken Unknown] predniSONE [Prednisone] 60 mg PO QAMCC #30 tablet 09/19/19 [Rx Last Taken Unknown] Prednisone will be tapered per Dr. Rosales or verifier once established Medical - DS: Hosp Hospital Course: Mr. Day is a 39 year old M with a history of plaque psoriasis and tobacco use who presented to the ER due to abdominal pain and bloody diarrhea for 2.5 weeks. As per patient, patient started to have lower abdominal pain associated with the bloody diarrhea 2.5 weeks ago. The abdominal pain is almost constant, sharp in nature and 2-8 out of 10 in severity. Movement makes more pain. he has been having diarrhea with a small amount of dark red to bright red blood, 10-30 times a day. He went to see a provider on 09/01/19. He was diagnosed with abdominal pain and bloody diarrhea. His stool studies showed H. pylori negative, positive guaiac and negative stool culture. Otherwise he is fine. Denies headache, dizziness, chest pain, shortness of breath, nausea, vomiting, fever, or dysuria. No recent travel or sick contact. In the ER, CT abdomen showed colitis. 1 L normal saline was given. When I saw this patient in the ED, other than the symptoms mentioned above, he was fine. She has been lost 20 pounds over the past 2.5 weeks. 09/14 Today patient feels a little bit better. He still has mild fever and tachycardia. Blood pressure is improved. Still has bloody diarrhea He was initially admitted to [facility] due to colitis yesterday afternoon. But he was upgraded to PCU at midnight due to tachycardia, fever, and soft blood pressure. White blood cells 13.5, 12.5 on admission Lactic acid 0.9, 0.8 Potassium 3.0 Unknown etiology for colitis, continue Zosyn at this moment. Surgeon Dr. Rosales will see patient. 09/15 Patient feels better. Less abdominal pain. Less frequent diarrhea with less bloody in the stool. Vital signs are stable Leukocytosis resolved today Hemoglobin 12.9 09/16 Continue to improve. Less pain, less bloody diarrhea, less nausea. Denies fever/chills. Bradycardia, EKG showed sinus tachy. WBC 12.4 from 10.0 yesterday. He started steroid 2 days ago. Discussed with Dr. Rosales who will do colonoscopy for him tomorrow. Started clear liquid. 09/17 Patient feels better. Less frequent diarrhea, he denied to see blood in stool this morning. Less abdominal pain. Denies nausea, vomiting, fever or chills. Heart rate between 40-50, asymptomatic. Denies dizziness, headache, or palpitation. Do not know any problem with heart rate in the past. He was initially scheduled for colonoscopy today but Dr. Rosales canceled because there is a high risk for colonoscopy at this moment. Dr. Rosales added mesalamine 500 mg 4 times daily. He needs to stay in the hospital for a few more days. Encouraged more exercise 09/18 Continues to feel little better today. Diarrhea improving did not notice any blood in it this morning. Abdominal pain slowly improving. No new complaints. He tolerated advancement in his diet last night to GI soft. If continues to improve patient will likely be scheduled for colonoscopy outpatient with Dr. Rosales. 09/19 Doing well no overnight events or new complaints. No bloody stools. A: *Colitis: 2/2 ulcerative colitis severe -CT with colitis from cecum to distal sigmoid -BC/Stoo cx neg *Bloody diarrhea:: 2/2 above -stool cx neg *Hyponatremia: *Hypokalemia: improved *Plaque psoriasis w/arthropathy: *Sinus bradycardia: -Heart rate between mild 40's to 50's, asymptomatic. Denies dizziness, headache, or palpitation. Do not know any problem with heart rate in the past. Discharge diagnosis: Ulcerative colitis hyponatremia hypokalemia plaque psoriasis sinus bradycar - Time Spent with Patient Total time spent providing and/or coordinating discharge services: Greater than 30 minutes Medical - DS: Exam - Constitutional Vitals: Vital Signs Temp Pulse Resp BP BP Pulse Ox 09/19/19 07:38 97.2 F 45 L 14 118/76 96 09/19/19 04:18 97.6 F 48 L 14 115/77 96 09/18/19 23:53 97.9 F 54 L 16 130/84 97 09/18/19 19:02 97.7 F 49 L 14 114/74 97 09/18/19 16:00 97.9 F 51 L 18 107/67 97 09/18/19 12:00 98.4 F 56 L 18 119/78 96 Intake and Output 09/18/19 09/19/19 09/19/19 21:59 05:59 13:59 Intake Total 880 490 290 Output Total 6033 7355 Balance -575 -785 290 Intake: Nourishment/Supplement quantity 240 (ml) IV 50 50 50 Zosyn 3.375 gm In Dextrose 5% 50 50 50 in Water 50 ml @ 100 mls/hr IV Q6H [facility] Rx#:[id number] Oral 590 440 240 Output: Void Amount 1375 525 Urine/Stool Mix 625 Stool 80 125 Other: Meal Dinner Breakfast Percent of Meal Consumed 75% 75% Feeding Ability Independent Independent Nourishment/Supplement name breeze Urine Appearance Clear Clear Clear Urine Color Bright Yellow Bright Yellow Bright Yellow Urine Odor Normal Stool Size Small Small Small Stool Color Brown Brown Brown Blood Tinged Stool Consistency Liquid Liquid Loose Loose # Voids 1 # Bowel Movements 1 1 1 Weight 104.961 kg Medical - DS: Data Labs on day of discharge: Labs from last 24 hours 09/19/19 09/19/19 05:36 05:36 WBC 14.2 H RBC 5.06 Hgb 14.5 Hct 43.0 MCV 85.0 MCH 28.7 MCHC 33.7 RDW 12.5 Plt Count 457 H MPV 9.3 Gran % 70.3 Lymph % (Auto) 16.1 [place] % (Auto) 12.7 H Eos % (Auto) 0.1 Baso % (Auto) 0.8 Gran # 10.00 H Lymph # (Auto) 2.28 [place] # (Auto) 1.80 H Eos # (Auto) 0.01 Baso # (Auto) 0.11 Differential Comment Rare nrbcs on scan Sodium 132 L Potassium 4.8 Chloride 99 Carbon Dioxide 20 L Anion Gap 13.0 BUN 11 Creatinine 0.7 GFR Calculation 120 Glucose 149 H Uric Acid 3.0 Calcium 8.6 Phosphorus 3.9 Magnesium 2.7 H Total Bilirubin 0.2 Direct Bilirubin < 0.2 GGT 47 AST 22 ALT 51 H Alkaline Phosphatase 61 Lactate Dehydrogenase 256 H Total Protein 6.5 Albumin 2.9 L Globulin 3.6 Albumin/Globulin Ratio 0.8 L Triglycerides 135 Preliminary micro results at discharge 09/15/19 00:20 Blood Culture - Preliminary Blood 09/15/19 00:15 Blood Culture - Preliminary Blood Medical - DS: A/P - Patient/Caregiver Discharge Instructions Activity: increase activity as tolerated Diet: Dysphagia Level 6 Soft & Bite-Sized Foods (advance as tolerated) Additional Instructions: Referral to see gastroenterology in 1 to 2 weeks for ulcerative colitis Prednisone taper per Dr. Rosales or verifier Prescriptions: Mesalamine [Pentasa] 500 mg PO QID #140 cap predniSONE [Prednisone] 60 mg PO [facility] #[facility] tab - Follow up Plan Follow up with: Amilcar Rosales MD [Physician] - 10/04/19 (Patient to call office to verify time) Lila Burciaga DO [Primary Care Provider] - Disposition: Home, Self-Care Prognosis: Good Rehab Potential: Good Overall status at discharge: patient is progressing back to baseline Medical - DS: Qual - VTE Deep Vein Thrombosis/Pulmonary Embolism Present on Admission: No
[2019-09-19] MEDS: methylPREDNISolone SOD SUCC 40 MG/ML VIAL IV SCH ×2 (14:26→21:09)
--- NOTE | 2019-09-19 17:26 | General Surgery Progress Note ---
Subjective Patient reports: feels better, pain is less (we talked about 27 66 the), flatus, diarrhea, afebrile Narrative: Note initiated : 09/19/19 at 5:24 pm Service Date, if different from initiated Date: [] Patient: Mamadou Day 39 y/o M admitted on 09/14/19 for abd pain. Chief Complaint: [patient is doing well. He states that he has no pain. He does have occasional gas cramp which resolved spontaneously. He does not have nausea or vomiting. He has loose stools with there is no blood in his stools. White blood count 14.2, hemoglobin 14.5, hematocrit 43, BUN 8, creatinine 0.5.] Objective Temp Pulse Resp BP Pulse Ox 97.5 F 46 L 14 130/86 97 09/19/19 12:00 09/19/19 12:00 09/19/19 12:00 09/19/19 12:00 09/19/19 12:00 - Additional Data Intake & Output - Last 24 hours: Intake & Output 09/17/19 09/18/19 09/19/19 09/20/19 05:59 05:59 05:59 05:59 Intake Total 5595 5025 2175 820 Output Total 1900 3275 3730 500 Balance 3695 1750 -1555 320 Weight 234 lb 237 lb 14.4 oz 231 lb 6.4 oz - General physical appearance well developed, well nourished, no distress - Neck no masses, no bruits, trachea midline, no lymphadenopathy, no venous distension - Respiratory normal expansion, normal respiratory effort, clear to auscultation - Cardiovascular Cardiovascular exam: Present: normal rate and rhythm, RRR, +S1, +S2. Absent: JVD - Abdomen non tender, bowel sounds (present), surgical scars (none), masses (none) - Integumentary no rash, no growths, no abnormal pigmentation - Neurologic normal coordination, normal sensation - Musculoskeletal normal gait, normal posture - Psychiatric oriented to time, oriented to person, oriented to place, speech is normal, memory intact - Labs 09/19/19 05:36 09/19/19 05:36 Diabetes panel 09/19/19 Range/Units 05:36 Sodium 132 L (133-145) mmol/L Potassium 4.8 (3.3-5.1) mmol/L Chloride 99 (96-108) mmol/L Carbon Dioxide 20 L (22-30) mmol/L BUN 11 (6-20) mg/dl Creatinine 0.7 (0.7-1.2) mg/dl Glucose 149 H (70-105) mg/dL Calcium 8.6 (8.6-10.4) mg/dl AST 22 (0-37) U/l ALT 51 H (0-40) U/l Alkaline Phosphatase 61 (39-117) U/L Total Protein 6.5 (5.9-8.4) gm/dL Albumin 2.9 L (3.2-5.2) gm/dL Triglycerides 135 (<150) mg/dl Calcium panel 09/19/19 Range/Units 05:36 Calcium 8.6 (8.6-10.4) mg/dl Phosphorus 3.9 (2.7-4.5) mg/dL Albumin 2.9 L (3.2-5.2) gm/dL Pituitary panel 09/19/19 Range/Units 05:36 Sodium 132 L (133-145) mmol/L Potassium 4.8 (3.3-5.1) mmol/L Chloride 99 (96-108) mmol/L Carbon Dioxide 20 L (22-30) mmol/L BUN 11 (6-20) mg/dl Creatinine 0.7 (0.7-1.2) mg/dl Glucose 149 H (70-105) mg/dL Calcium 8.6 (8.6-10.4) mg/dl Adrenal panel 09/19/19 Range/Units 05:36 Sodium 132 L (133-145) mmol/L Potassium 4.8 (3.3-5.1) mmol/L Chloride 99 (96-108) mmol/L Carbon Dioxide 20 L (22-30) mmol/L BUN 11 (6-20) mg/dl Creatinine 0.7 (0.7-1.2) mg/dl Glucose 149 H (70-105) mg/dL Calcium 8.6 (8.6-10.4) mg/dl Total Bilirubin 0.2 (0.0-1.0) mg/dL AST 22 (0-37) U/l ALT 51 H (0-40) U/l Alkaline Phosphatase 61 (39-117) U/L Total Protein 6.5 (5.9-8.4) gm/dL Albumin 2.9 L (3.2-5.2) gm/dL Assessment and Plan (1) Ulcerative pancolitis Status: Acute Assessment and plan: Patient continues to improve. We'll continue present therapy. Pentasa 500 mg 4 times a day orally Trial of GI soft diet Probable discharge tomorrow Current Visit: Yes (2) Psoriasis with arthropathy Status: Acute Current Visit: No - Time Spent With Patient Total time spent is greater than 50% in coordination of care (as documented) at patient's floor/unit and/or counseling patient:
[2019-09-20] MEDS: 0.9 % SODIUM CHLORIDE 10 ML SYRINGE IV SCH ×2 (05:55→14:16)
[2019-09-20] MEDS: PIPERACILLIN SODIUM/TAZOBACTAM 3.375 GM in DEXTROSE 5% IN WATER 50 ML IV SCH ×2 (05:55→12:08)
[2019-09-20] MEDS: methylPREDNISolone SOD SUCC 40 MG/ML VIAL IV SCH ×2 (05:58→14:15)
[2019-09-20 07:07] LABS: Blood Urea Nitrogen 14 mg/dl (6-20); Calcium 8.5 mg/dl (8.6-10.4); Carbon Dioxide 22 mmol/L (22-30); Chloride 98 mmol/L (96-108); Glomerular Filtration Rate 120; Glucose 115 mg/dL (70-105)
[2019-09-20 07:08] LABS: Basophils # (Auto) 0.13 K/mcL (0.00-0.30); Basophils % (Auto) 0.9 % (0.0-2.0); Eosinophils # (Auto) 0.04 K/mcL (0.00-0.70); Eosinophils % (Auto) 0.3 % (0.0-7.0); Granulocytes % (Auto) 70.3 % (38.0-78.0); Hematocrit 42.7 % (40.1-51.0); Hemoglobin 14.3 g/dL (13.7-17.5); Lymphocytes # (Auto) 2.79 K/mcL (1.50-4.80); Mean Cell Volume 85.2 fL (80.0-100.0); Mean Corpuscular HGB Conc 33.5 g/dL (31.0-36.0); Mean Platelet Volume 9.1 fL (7.4-10.4); Monocytes # (Auto) 1.39 K/mcL (0.10-0.90); Monocytes % (Auto) 9.5 % (1.0-12.0); Platelet Count 455 K/mcL (140-440); RBC 5.01 M/mcL (4.63-6.08); Red Cell Distribution Width 12.7 % (11.5-14.5); WBC 14.7 K/mcL (4.50-11.00)
[2019-09-20] MEDS ORDERED: SODIUM CHLORIDE 1 GM TABLET PO ONE (07:28)
[2019-09-20] MEDS: PANTOPRAZOLE 40 MG TABLET PO SCH (07:42)
[2019-09-20] MEDS: MESALAMINE 500 MG CAPSULE PO SCH ×3 (09:46→15:58)
[2019-09-25 17:36] LABS: ASCA IgA ELISA 7.5 EU/mL (< 9.2); ASCA IgG ELISA 6.5 EU/mL (< 11.9); Anti-A4-Fla2 IgG ELISA 3.7 EU/mL (< 32.4); Anti-CBir1 IgG ELISA 4.1 EU/mL (< 35.4); Anti-FlaX IgG ELISA 5.5 ER/mL (< 36.0); Anti-OmpC IgA ELISA 4.6 EU/mL (< 11.3); CRP 136.9 mg/L (< 13.4); IBD pANCA IFA Pattern NOT DETECTED (NOTDETECTED); NKX2-3 SNP (rs10883365) DETECTED (NO MUTATION); Serum Amyloid A 148.6 mg/L (< 22.9); VCAM-1 0.52 ug/ml (< 0.75); VEGF 348 pg/ml (< 393)
== END 2019-09-20 16:00 | disposition home or self-care (01) | DRG 386 ==
LOC: ED 15:21 → MEDSUR 19:55 → ICU 09-15 00:36 → MEDSUR 09-18 11:10
PROVIDERS: ADMIT Internal Medicine; ATTEND Internal Medicine

== ENCOUNTER 2019-10-02 12:07 | Inpatient (IN) ==
[2019-10-02] MEDS ORDERED: ONDANSETRON 4 MG/2 ML VIAL IV PRN (12:43)
[2019-10-02] MEDS ORDERED: PROMETHAZINE 25 MG/ML VIAL IV PRN (12:52)
[2019-10-02] MEDS ORDERED: LOPERAMIDE 2 MG CAPSULE PO PRN (12:53)
[2019-10-02] MEDS ORDERED: SECUKINUMAB 300 MG SUB-Q SCH (13:00)
[2019-10-02] MEDS: LEVOFLOXACIN 750 MG/150 ML BAG IV SCH (13:20)
[2019-10-02] MEDS: 0.9 % SODIUM CHLORIDE 1,000 ML IV SCH ×2 (13:20→21:15)
--- NOTE | 2019-10-02 14:04 | XRay Report ---
INDICATION: FOLLOW -UP OF SMALL BOWEL OBSTRUCTION TECHNIQUE: Supine and upright abdomen. COMPARISON: CT scan dated 09/14/2019 FINDINGS:Gas and fecal material within the colon. No dilated gas-filled small bowel. Bowel gas pattern is unremarkable without evidence for significant mechanical small bowel obstruction. No pneumoperitoneum. No biliary or portal venous gas. There is no pneumatosis. No focal abnormality. IMPRESSION: 1. Nonspecific and nonobstructive bowel gas pattern 2. No acute or focal abnormality Interpreted and Authenticated by: Rehan Mario 10/02/19
[2019-10-02 14:08] LABS: Basophils # (Auto) 0.01 K/mcL (0.00-0.30); Basophils % (Auto) 0.1 % (0.0-2.0); Eosinophils # (Auto) 0.03 K/mcL (0.00-0.70); Eosinophils % (Auto) 0.3 % (0.0-7.0); Granulocytes % (Auto) 78.9 % (38.0-78.0); Hemoglobin 13.2 g/dL (13.7-17.5); Lymphocytes # (Auto) 1.55 K/mcL (1.50-4.80); Lymphocytes % (Auto) 13.5 % (15.5-49.0); Mean Cell Volume 87.7 fL (80.0-100.0); Mean Platelet Volume 8.3 fL (7.4-10.4); Monocytes # (Auto) 0.83 K/mcL (0.10-0.90); Monocytes % (Auto) 7.2 % (1.0-12.0); Platelet Count 330 K/mcL (140-440); RBC 4.56 M/mcL (4.63-6.08); Red Cell Distribution Width 14.3 % (11.5-14.5); WBC 11.5 K/mcL (4.50-11.00)
[2019-10-02 14:30] LABS: ALT/SGPT 122 U/l (0-40); AST/SGOT 28 U/l (0-37); Albumin 3.2 gm/dL (3.2-5.2); Alkaline Phosphatase 96 U/L (39-117); Bilirubin,Direct < 0.2 mg/dL (0.0-0.3); Bilirubin,Total 0.3 mg/dL (0.0-1.0); Blood Urea Nitrogen 11 mg/dl (6-20); C-Reactive Protein 7.2 mg/dl (0.0-0.8); Calcium 8.7 mg/dl (8.6-10.4); Carbon Dioxide 23 mmol/L (22-30); Chloride 98 mmol/L (96-108); Globulin 3.3 gm/dL (2.2-3.7); Glomerular Filtration Rate 128; Glucose 108 mg/dL (70-105); Lactate Dehydrogenase 128 U/L (94-250); Phosphorous 4.2 mg/dL (2.7-4.5); Triglycerides 72 mg/dl (<150); Uric Acid 4.6 mg/dL (2.5-8.0)
[2019-10-02] MEDS: MESALAMINE 500 MG CAPSULE PO SCH ×3 (14:30→21:11)
[2019-10-02] MEDS: 0.9 % SODIUM CHLORIDE 10 ML SYRINGE IV SCH ×2 (14:31→21:17)
[2019-10-02] MEDS: methylPREDNISolone SOD SUCC 125 MG/2 ML VIAL IV SCH (21:11)
[2019-10-02] MEDS: traZODone HCL 50 MG TABLET PO PRN (21:12)
[2019-10-03] MEDS: 0.9 % SODIUM CHLORIDE 1,000 ML IV SCH ×4 (03:26→19:04)
[2019-10-03] MEDS: 0.9 % SODIUM CHLORIDE 10 ML SYRINGE IV SCH ×3 (05:09→21:08)
[2019-10-03] MEDS: PANTOPRAZOLE 40 MG TABLET PO SCH (06:58)
[2019-10-03 07:07] LABS: Basophils # (Auto) 0.01 K/mcL (0.00-0.30); Basophils % (Auto) 0.1 % (0.0-2.0); Eosinophils # (Auto) 0 K/mcL (0.00-0.70); Eosinophils % (Auto) 0 % (0.0-7.0); Granulocytes % (Auto) 81.2 % (38.0-78.0); Hematocrit 39.6 % (40.1-51.0); Hemoglobin 12.8 g/dL (13.7-17.5); Lymphocytes # (Auto) 1.37 K/mcL (1.50-4.80); Mean Corpuscular HGB Conc 32.3 g/dL (31.0-36.0); Mean Platelet Volume 8.4 fL (7.4-10.4); Monocytes # (Auto) 0.77 K/mcL (0.10-0.90); Monocytes % (Auto) 6.7 % (1.0-12.0); Platelet Count 317 K/mcL (140-440); WBC 11.4 K/mcL (4.50-11.00)
[2019-10-03 07:34] LABS: ALT/SGPT 114 U/l (0-40); AST/SGOT 21 U/l (0-37); Albumin 2.8 gm/dL (3.2-5.2); Albumin/Globulin Ratio 0.8 (1.0-2.3); Alkaline Phosphatase 94 U/L (39-117); Bilirubin,Direct < 0.2 mg/dL (0.0-0.3); Bilirubin,Total 0.4 mg/dL (0.0-1.0); Blood Urea Nitrogen 8 mg/dl (6-20); Calcium 8.7 mg/dl (8.6-10.4); Carbon Dioxide 23 mmol/L (22-30); Chloride 99 mmol/L (96-108); Globulin 3.4 gm/dL (2.2-3.7); Glomerular Filtration Rate 128; Glucose 134 mg/dL (70-105); Lactate Dehydrogenase 126 U/L (94-250); Triglycerides 50 mg/dl (<150); Uric Acid 4.4 mg/dL (2.5-8.0)
[2019-10-03] MEDS ORDERED: IOPAMIDOL 100 ML BOTTLE IV ONE (08:14)
[2019-10-03] MEDS: methylPREDNISolone SOD SUCC 125 MG/2 ML VIAL IV SCH ×2 (08:41→21:28)
[2019-10-03] MEDS: LEVOFLOXACIN 750 MG/150 ML BAG IV SCH (08:41)
[2019-10-03] MEDS: MESALAMINE 500 MG CAPSULE PO SCH ×4 (08:42→21:28)
--- NOTE | 2019-10-03 09:26 | Cat Scan Report ---
INDICATION: f/u of ulcerative colitis COMPARISON: Previous CT scan dated 09/14/2019 TECHNIQUE: Axial images were obtained through the abdomen and pelvis. Sagittally and coronally reformatted images. 80 mL Isovue 370 injected intravenously. Oral contrast material was given FINDINGS: Lung bases:Negative. No pulmonary parenchymal nodule. No pleural fluid or pericardial fluid Liver:Negative. No focal intrahepatic mass. No focal abnormality. Liver contour is smooth. No evidence for cirrhosis Gallbladder, bilary:No calcified gallstones. No gallbladder wall thickening. No dilated intra or extrahepatic bile ducts. Spleen:Borderline splenomegaly. Spleen measures 12.6 cm maximally. Normal enhancement of the splenic and portal vein Pancreas:No pancreatic mass. No peripancreatic abnormality Adrenal glands:Negative Kidneys, ureters, bladder: Abnormality left kidney. There is appearance consistent with previous partial left rectum E. This is unchanged. No solid or cystic renal mass. No hydronephrosis. No obstructing or nonobstructing calculi. There is no hydroureter. No ureteral stone No bladder calculi or detectable mass Gastrointestinal: Colon remains diffusely abnormal. There is generalized wall thickening. This is most prominent in the rectum and sigmoid colon but involves entire length of the colon. There is no discrete mass. No obstruction. There is no diverticulitis. There is very prominent vasa recta throughout the colon. This is a nonspecific appearance and is seen with inflammatory disease. Appearance of the colon is considered stable Small bowel is negative. No mechanical small bowel obstruction. There is contrast material throughout the small bowel as well as the ascending colon Stomach and duodenum are unremarkable. Incidental note is made of a gastric fundal diverticulum. This is benign and unchanged Appendix: The appendix is negative Vascular:Negative abdominal aorta. Superior mesenteric artery and celiac trunk are normal. Normal opacification of the inferior mesenteric artery Lymphatic:No retroperitoneal or mesenteric adenopathy Mesentery, peritoneum: No free intraperitoneal fluid. No mesenteric or retroperitoneal mass. There is no pneumoperitoneum. No intra-abdominal mass Reproductive:Prostate is not enlarged Musculoskeletal:Degenerative disc disease at L4-5. No compression fractures. Sacrum and pelvis are negative IMPRESSION: 1. Diffusely abnormal colon. Findings are consistent with colitis involving the entire colon. Findings are consistent with the supplied diagnosis of ulcerative colitis 2. No detectable colonic mass. No evidence for perforation 3. 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 Borderline splenomegaly 5. No acute abnormality. No interval change since 09/14/2019 The exam was performed using radiation dose optimization techniques including, but not limited to, automated exposure control, adjustment of the mA and/or kV according to patient size and use of iterative reconstruction technique. Interpreted and Authenticated by: Rehan Mario 10/03/19
--- NOTE | 2019-10-03 15:26 | General Surg History&Physical ---
History of Present Illness Patient information: Note initiated : 10/03/19 at 3:26 pm Service Date, if different from initiated Date: [] Patient: Mamadou Day a 39 y/o M admitted on 10/02/19 for Acute Choleitis. Chief Complaint: [] HPI: Mr. Day is a 39 year old M with known history of ulcerative colitis with bloody diarrhea and weight loss. He had acute onset of symptoms about 24 Aug 2019. He developed diffuse abdominal pain with bloody diarrhea. His diarrhea progressed to about 20 bowel movements per day. He was seen by his primary physician and CT revealed major inflammation of his entire colon. Over the past 3 weeks he has lost about 20 pounds and has general weakness. He was admitted and treated from 13 September and 2 to September. He was discharged home on mesalamine and prednisone 60 mg daily. He is seen in the office on 01 October with complaints of severe abdominal pain which worsens at night. He was becoming progressively weaker and had decreased appetite. His stools which were initially performed have become more liquid and he is having more blood and mucus in stool. Patient looks clinically much worse and he is admitted for inpatient treatment hydration high-dose steroids and follow-up CT. He probably will need to have colonoscopy after his colon is stable enough for bowel prep. Review of Systems All systems PM: reviewed and no additional remarkable complaints except as stated (negative except as noted in the history of present illness) Past History Past medical history: PLAQUE psoriatic arthritis History of asthma Past surgical history: Resection of right branchial cleft cyst Past family history: Hypertension Arthritis Colon cancer Diabetes mellitus Coronary artery disease Past social history: Former smoker Occasional use of alcohol Denies drug use Medications and Allergies Home Medications Medication Instructions Recorded Confirmed Type secukinumab 150 mg/mL subcutaneous 300 mg SUB-Q .COMPLEX #2 ml 06/21/19 10/02/19 Rx pen injector Loperamide [Imodium] 2 mg PO PRN PRN 09/14/19 10/02/19 History Omeprazole [Prilosec] 20 mg PO BID 09/14/19 10/02/19 History Mesalamine [Pentasa] 500 mg PO QID #140 cap 09/19/19 10/02/19 Rx prednisone 20 mg tablet 60 mg PO QAC #30 tab 09/28/19 10/02/19 Rx Allergies Allergy/AdvReac Type Severity Reaction Status Date / Time No Known Drug Allergies Allergy Verified 10/02/19 11:23 Exam Temp Pulse Resp BP Pulse Ox 98.3 F 62 18 105/64 96 10/03/19 11:54 10/03/19 11:54 10/03/19 11:54 10/03/19 11:54 10/03/19 11:54 - General physical appearance well developed, well nourished, moderate distress, moderate pain, chronically ill - Eyes PERRL, normal ocular movement - ENT normal pinna, normal nares, normal mucosa, no hearing loss, no congestion - Head Head exam IM: Present: atraumatic, normocephalic - Neck no masses, no bruits, trachea midline, no lymphadenopathy, no venous distension - Cardiovascular Cardiovascular exam IM: Present: normal rate and rhythm - Respiratory normal expansion, normal respiratory effort, clear to percussion, clear to auscultation - Abdomen Abdomen: Present: soft, tender (moderate mid abdominal tenderness with guarding), bowel sounds (hyperactive bowel sounds), distended (moderate distention with tympany) Hernia: Present: none - Genitourinary Present: normal penis with no external lesions - Rectum Rectum: Present: normal sphincter tone, no tenderness, no masses, no bleeding, other (mildly enlarged hemorrhoids with swelling and tenderness) - Integumentary Present: no rash, no growths, no abnormal pigmentation - Neurologic Present: normal coordination, normal sensation - Musculoskeletal Present: normal gait, normal posture - Psychiatric Present: oriented to time, oriented to person, oriented to place, speech is normal, memory intact Assessment and Plan (1) Ulcerative pancolitis IV hydration Analgesics for pain control Resume IV Solu-Medrol Schedule CT of abdomen and pelvis with the a.m. Colonoscopy during this hospitalization May have to transfer to GI for other treatments Status: Acute (2) Psoriasis with arthropathy Status: Acute (3) Acid reflux Status: Chronic
--- NOTE | 2019-10-03 15:28 | General Surgery Progress Note ---
Subjective Patient reports: feels better, still having pain, pain is less, tolerating liquids well, flatus, diarrhea, nausea, afebrile Narrative: Note initiated : 10/03/19 at 3:26 pm Service Date, if different from initiated Date: [] Patient: aMmadou Day 39 y/o M admitted on 10/02/19 for Acute Choleitis. Chief Complaint: [Patient states that he feels better since admission. He was able to have his pain control last evening. He did not have major nausea. CT shows pancolonic colitis unchanged from last admission. White blood count 11.4, hemoglobin 12.8, hematocrit 39.6, lactic acid 1.6, albumin 2.8, CRP 7.2.] Objective Temp Pulse Resp BP Pulse Ox 98.3 F 62 18 105/64 96 10/03/19 11:54 10/03/19 11:54 10/03/19 11:54 10/03/19 11:54 10/03/19 11:54 - Additional Data Intake & Output - Last 24 hours: Intake & Output 10/01/19 10/02/19 10/03/19 10/04/19 05:59 05:59 05:59 05:59 Intake Total 3017 1600 Output Total 1900 725 Balance 1117 875 Weight 227 lb 227 lb - General physical appearance moderate pain - Eyes PERRL, normal ocular movement - ENT normal pinna, normal nares, normal mucosa, no hearing loss, no congestion - Neck no masses, no bruits, trachea midline, no lymphadenopathy, no venous distension - Respiratory normal expansion, normal respiratory effort, clear to auscultation - Cardiovascular Cardiovascular exam: Present: normal rate and rhythm, RRR, +S1, +S2. Absent: JVD, tachycardia - Abdomen tender (mild tenderness in mid abdomen), bowel sounds (hyperactive bowel sounds), distended (less distention than last evening) - Integumentary no rash, no growths, no abnormal pigmentation - Neurologic normal coordination, normal sensation - Musculoskeletal normal gait, normal posture - Psychiatric oriented to time, oriented to person, oriented to place, speech is normal, memor y intact - Labs 10/03/19 05:20 10/03/19 05:20 Diabetes panel 10/03/19 Range/Units 05:20 Sodium 134 (133-145) mmol/L Potassium 4.3 (3.3-5.1) mmol/L Chloride 99 (96-108) mmol/L Carbon Dioxide 23 (22-30) mmol/L BUN 8 (6-20) mg/dl Creatinine 0.6 L (0.7-1.2) mg/dl Glucose 134 H (70-105) mg/dL Calcium 8.7 (8.6-10.4) mg/dl AST 21 (0-37) U/l ALT 114 H (0-40) U/l Alkaline Phosphatase 94 (39-117) U/L Total Protein 6.2 (5.9-8.4) gm/dL Albumin 2.8 L (3.2-5.2) gm/dL Triglycerides 50 (<150) mg/dl Calcium panel 10/03/19 Range/Units 05:20 Calcium 8.7 (8.6-10.4) mg/dl Phosphorus 5.0 H (2.7-4.5) mg/dL Albumin 2.8 L (3.2-5.2) gm/dL Pituitary panel 10/03/19 Range/Units 05:20 Sodium 134 (133-145) mmol/L Potassium 4.3 (3.3-5.1) mmol/L Chloride 99 (96-108) mmol/L Carbon Dioxide 23 (22-30) mmol/L BUN 8 (6-20) mg/dl Creatinine 0.6 L (0.7-1.2) mg/dl Glucose 134 H (70-105) mg/dL Calcium 8.7 (8.6-10.4) mg/dl Adrenal panel 10/03/19 Range/Units 05:20 Sodium 134 (133-145) mmol/L Potassium 4.3 (3.3-5.1) mmol/L Chloride 99 (96-108) mmol/L Carbon Dioxide 23 (22-30) mmol/L BUN 8 (6-20) mg/dl Creatinine 0.6 L (0.7-1.2) mg/dl Glucose 134 H (70-105) mg/dL Calcium 8.7 (8.6-10.4) mg/dl Total Bilirubin 0.4 (0.0-1.0) mg/dL AST 21 (0-37) U/l ALT 114 H (0-40) U/l Alkaline Phosphatase 94 (39-117) U/L Total Protein 6.2 (5.9-8.4) gm/dL Albumin 2.8 L (3.2-5.2) gm/dL Assessment and Plan (1) Ulcerative pancolitis Status: Acute Assessment and plan: Patient will have limited bowel prep and colonoscopy tomorrow Current Visit: No (2) Acid reflux Status: Chronic Current Visit: No - Time Spent With Patient Total time spent is greater than 50% in coordination of care (as documented) at patient's floor/unit and/or counseling patient:
[2019-10-03] MEDS: MAGNESIUM CITRATE 300 ML ORAL.SOL PO SCH ×2 (16:00→19:59)
[2019-10-03] MEDS: HYDROmorphone 1 MG/ML SYRINGE IV PRN (20:00)
[2019-10-04] MEDS: traZODone HCL 50 MG TABLET PO PRN (00:24)
[2019-10-04] MEDS: 0.9 % SODIUM CHLORIDE 1,000 ML IV SCH ×5 (01:06→22:25)
[2019-10-04] MEDS: HYDROmorphone 1 MG/ML SYRINGE IV PRN ×4 (01:06→23:59)
[2019-10-04] MEDS: 0.9 % SODIUM CHLORIDE 10 ML SYRINGE IV SCH ×3 (06:04→21:17)
[2019-10-04 06:16] LABS: Basophils # (Auto) 0.01 K/mcL (0.00-0.30); Basophils % (Auto) 0.1 % (0.0-2.0); Eosinophils # (Auto) 0 K/mcL (0.00-0.70); Eosinophils % (Auto) 0 % (0.0-7.0); Granulocytes % (Auto) 77.7 % (38.0-78.0); Hematocrit 38.1 % (40.1-51.0); Hemoglobin 12.2 g/dL (13.7-17.5); Lymphocytes # (Auto) 1.66 K/mcL (1.50-4.80); Lymphocytes % (Auto) 16.1 % (15.5-49.0); Mean Platelet Volume 8.5 fL (7.4-10.4); Monocytes # (Auto) 0.63 K/mcL (0.10-0.90); Monocytes % (Auto) 6.1 % (1.0-12.0); Platelet Count 314 K/mcL (140-440); RBC 4.33 M/mcL (4.63-6.08); WBC 10.3 K/mcL (4.50-11.00)
[2019-10-04 06:50] LABS: Bilirubin,Direct < 0.2 mg/dL (0.0-0.3); Chloride 102 mmol/L (96-108)
[2019-10-04 06:56] LABS: ALT/SGPT 101 U/l (0-40); AST/SGOT 18 U/l (0-37); Albumin 2.6 gm/dL (3.2-5.2); Albumin/Globulin Ratio 0.8 (1.0-2.3); Alkaline Phosphatase 81 U/L (39-117); Bilirubin,Total 0.2 mg/dL (0.0-1.0); Blood Urea Nitrogen 9 mg/dl (6-20); Calcium 8.3 mg/dl (8.6-10.4); Carbon Dioxide 24 mmol/L (22-30); Globulin 3.2 gm/dL (2.2-3.7); Glomerular Filtration Rate 128; Glucose 132 mg/dL (70-105); Lactate Dehydrogenase 126 U/L (94-250); Phosphorous 4.6 mg/dL (2.7-4.5); Triglycerides 70 mg/dl (<150); Uric Acid 4.6 mg/dL (2.5-8.0)
[2019-10-04] MEDS: PANTOPRAZOLE 40 MG TABLET PO SCH (07:16)
[2019-10-04] MEDS: LEVOFLOXACIN 750 MG/150 ML BAG IV SCH (09:09)
[2019-10-04] MEDS: MESALAMINE 500 MG CAPSULE PO SCH ×4 (09:14→21:24)
[2019-10-04] MEDS: methylPREDNISolone SOD SUCC 125 MG/2 ML VIAL IV SCH ×2 (09:19→21:17)
[2019-10-04] MEDS ORDERED: GLYCOPYRROLATE 0.2 MG/ML VIAL IV ONE (16:42)
[2019-10-04] MEDS ORDERED: MIDAZOLAM 2 MG/2 ML VIAL IV ONE (16:42)
[2019-10-04] MEDS ORDERED: KETAMINE 100 MG/ML ML IV ONE (16:42)
[2019-10-04] MEDS ORDERED: fentaNYL 100 MCG/2 ML VIAL IV ONE (16:42)
[2019-10-04] MEDS ORDERED: PROPOFOL 200 MG/20 ML VIAL IV ONE (16:42)
--- NOTE | 2019-10-04 17:24 | Brief Operative Note ---
Date of procedure: 10/04/19 Pre-op diagnosis: acute ulcerative colitis Post-op diagnosis: other (acute ulcerative colitis) Procedure: colonoscopy with biopsies Grafts/Implants: No Anesthesia: other (general) Findings: severe acute colitis extending from rectum to cecum with no skip areas ;punctate ulcers with deep craters in sigmoid Surgeon: Amilcar Rosales Specimens Removed/Pathology: other (biopsies from ascending colon ,transverse,sigmoid colon) Condition: stable Disposition: floor
[2019-10-04] MEDS ORDERED: traZODone HCL 50 MG TABLET PO PRN (17:34)
[2019-10-04] MEDS ORDERED: PROMETHAZINE 25 MG/ML VIAL IV PRN (17:34)
[2019-10-04] MEDS ORDERED: ONDANSETRON 4 MG/2 ML VIAL IV PRN (17:34)
[2019-10-04] MEDS ORDERED: HYDROmorphone 1 MG/ML SYRINGE ONE (17:55)
[2019-10-05] MEDS: HYDROmorphone 1 MG/ML SYRINGE IV PRN ×6 (02:16→23:11)
[2019-10-05] MEDS: 0.9 % SODIUM CHLORIDE 10 ML SYRINGE IV SCH ×3 (05:22→20:42)
[2019-10-05] MEDS: 0.9 % SODIUM CHLORIDE 1,000 ML IV SCH ×4 (06:39→19:09)
[2019-10-05] MEDS: PANTOPRAZOLE 40 MG TABLET PO SCH (06:50)
[2019-10-05 06:53] LABS: Basophils # (Auto) 0.03 K/mcL (0.00-0.30); Basophils % (Auto) 0.2 % (0.0-2.0); Eosinophils # (Auto) 0 K/mcL (0.00-0.70); Eosinophils % (Auto) 0 % (0.0-7.0); Granulocytes % (Auto) 80.5 % (38.0-78.0); Hematocrit 42.9 % (40.1-51.0); Hemoglobin 13.8 g/dL (13.7-17.5); Lymphocytes # (Auto) 1.87 K/mcL (1.50-4.80); Lymphocytes % (Auto) 13.9 % (15.5-49.0); Mean Cell Volume 88.3 fL (80.0-100.0); Mean Corpuscular HGB Conc 32.2 g/dL (31.0-36.0); Mean Platelet Volume 8.7 fL (7.4-10.4); Monocytes # (Auto) 0.72 K/mcL (0.10-0.90); Monocytes % (Auto) 5.4 % (1.0-12.0); Platelet Count 348 K/mcL (140-440); RBC 4.86 M/mcL (4.63-6.08); WBC 13.5 K/mcL (4.50-11.00)
[2019-10-05 07:28] LABS: ALT/SGPT 80 U/l (0-40); AST/SGOT 11 U/l (0-37); Albumin 3.2 gm/dL (3.2-5.2); Albumin/Globulin Ratio 0.9 (1.0-2.3); Alkaline Phosphatase 93 U/L (39-117); Bilirubin,Direct < 0.2 mg/dL (0.0-0.3); Bilirubin,Total 0.3 mg/dL (0.0-1.0); Blood Urea Nitrogen 11 mg/dl (6-20); Calcium 8.9 mg/dl (8.6-10.4); Carbon Dioxide 21 mmol/L (22-30); Chloride 99 mmol/L (96-108); Globulin 3.4 gm/dL (2.2-3.7); Glomerular Filtration Rate 120; Glucose 125 mg/dL (70-105); Lactate Dehydrogenase 157 U/L (94-250); Phosphorous 4.4 mg/dL (2.7-4.5); Triglycerides 86 mg/dl (<150)
[2019-10-05] MEDS: methylPREDNISolone SOD SUCC 125 MG/2 ML VIAL IV SCH ×2 (08:12→20:41)
[2019-10-05] MEDS: MESALAMINE 500 MG CAPSULE PO SCH ×4 (08:12→20:42)
[2019-10-05] MEDS: LEVOFLOXACIN 750 MG/150 ML BAG IV SCH (08:12)
--- NOTE | 2019-10-05 18:47 | General Surgery Progress Note ---
Subjective Patient reports: feels better, pain is less, flatus, diarrhea, blood in stool, afebrile Narrative: Note initiated : 10/05/19 at 6:45 pm Service Date, if different from initiated Date: [] Patient: Mamadou Day 39 y/o M admitted on 10/02/19 for Acute Choleitis. Chief Complaint: [patient is clinically improved. He has less bloody stools. White blood count 13.5, hemoglobin 13.8, hematocrit 42 , And position panel is normal.] Objective Temp Pulse Resp BP Pulse Ox 98.6 F 61 16 117/76 97 10/05/19 15:28 10/05/19 15:28 10/05/19 15:28 10/05/19 15:28 10/05/19 15:28 - Additional Data Intake & Output - Last 24 hours: Intake & Output 10/03/19 10/04/19 10/05/19 10/06/19 05:59 05:59 05:59 05:59 Intake Total 3017 4200 4213 3820 Output Total 1900 1950 1475 1600 Balance 1117 2250 2738 2220 Weight 227 lb 226 lb 8 oz 229 lb 9.6 oz 229 lb 9.6 oz - General physical appearance well developed, well nourished, no distress - Eyes PERRL, normal ocular movement - ENT normal pinna, normal nares, normal mucosa, no hearing loss, no congestion - Neck no masses, no bruits, trachea midline, no lymphadenopathy, no venous distension - Respiratory normal expansion, normal respiratory effort, clear to auscultation - Cardiovascular Cardiovascular exam: Present: normal rate and rhythm, RRR, +S1, +S2. Absent: JVD, tachycardia - Abdomen non tender, bowel sounds (present), surgical scars (none), masses (none) - Integumentary no rash, no growths, no abnormal pigmentation - Neurologic normal coordination, normal sensation - Musculoskeletal normal gait, normal posture - Psychiatric oriented to time, oriented to person, oriented to place, speech is normal, memory intact - Labs 10/05/19 05:15 10/05/19 05:15 Diabetes panel 10/05/19 Range/Units 05:15 Sodium 135 (133-145) mmol/L Potassium 4.5 (3.3-5.1) mmol/L Chloride 99 (96-108) mmol/L Carbon Dioxide 21 L (22-30) mmol/L BUN 11 (6-20) mg/dl Creatinine 0.7 (0.7-1.2) mg/dl Glucose 125 H (70-105) mg/dL Calcium 8.9 (8.6-10.4) mg/dl AST 11 (0-37) U/l ALT 80 H (0-40) U/l Alkaline Phosphatase 93 (39-117) U/L Total Protein 6.6 (5.9-8.4) gm/dL Albumin 3.2 (3.2-5.2) gm/dL Triglycerides 86 (<150) mg/dl Calcium panel 10/05/19 Range/Units 05:15 Calcium 8.9 (8.6-10.4) mg/dl Phosphorus 4.4 (2.7-4.5) mg/dL Albumin 3.2 (3.2-5.2) gm/dL Pituitary panel 10/05/19 Range/Units 05:15 Sodium 135 (133-145) mmol/L Potassium 4.5 (3.3-5.1) mmol/L Chloride 99 (96-108) mmol/L Carbon Dioxide 21 L (22-30) mmol/L BUN 11 (6-20) mg/dl Creatinine 0.7 (0.7-1.2) mg/dl Glucose 125 H (70-105) mg/dL Calcium 8.9 (8.6-10.4) mg/dl Adrenal panel 10/05/19 Range/Units 05:15 Sodium 135 (133-145) mmol/L Potassium 4.5 (3.3-5.1) mmol/L Chloride 99 (96-108) mmol/L Carbon Dioxide 21 L (22-30) mmol/L BUN 11 (6-20) mg/dl Creatinine 0.7 (0.7-1.2) mg/dl Glucose 125 H (70-105) mg/dL Calcium 8.9 (8.6-10.4) mg/dl Total Bilirubin 0.3 (0.0-1.0) mg/dL AST 11 (0-37) U/l ALT 80 H (0-40) U/l Alkaline Phosphatase 93 (39-117) U/L Total Protein 6.6 (5.9-8.4) gm/dL Albumin 3.2 (3.2-5.2) gm/dL Assessment and Plan (1) Ulcerative pancolitis Status: Acute Assessment and plan: BUDESONIDE 9 MG DAILY Current Visit: No (2) Psoriasis with arthropathy Status: Acute Current Visit: No (3) Acid reflux Status: Chronic Current Visit: No - Time Spent With Patient Total time spent is greater than 50% in coordination of care (as documented) at patient's floor/unit and/or counseling patient:
[2019-10-05] MEDS: BUDESONIDE 3 MG CAP.XL.24H PO SCH (20:42)
[2019-10-05] MEDS: traZODone HCL 50 MG TABLET PO PRN (23:12)
[2019-10-06] MEDS: 0.9 % SODIUM CHLORIDE 1,000 ML IV SCH ×3 (02:35→22:05)
[2019-10-06] MEDS: HYDROmorphone 1 MG/ML SYRINGE IV PRN ×7 (02:35→22:02)
[2019-10-06] MEDS: 0.9 % SODIUM CHLORIDE 10 ML SYRINGE IV SCH ×3 (06:48→21:11)
[2019-10-06] MEDS: PANTOPRAZOLE 40 MG TABLET PO SCH (07:55)
[2019-10-06] MEDS: LEVOFLOXACIN 750 MG/150 ML BAG IV SCH (08:28)
[2019-10-06] MEDS: MESALAMINE 500 MG CAPSULE PO SCH ×5 (08:28→21:14)
[2019-10-06] MEDS: methylPREDNISolone SOD SUCC 125 MG/2 ML VIAL IV SCH ×2 (08:29→21:10)
[2019-10-06] MEDS: BUDESONIDE 3 MG CAP.XL.24H PO SCH (08:29)
--- NOTE | 2019-10-06 12:48 | Surgical Pathology Report ---
HISTOLOGY SPECIMEN MICROSCOPIC DIAGNOSIS SPECIMEN A - COLON, TRANSVERSE, BIOPSY: -- CHRONIC ACTIVE COLITIS WITH CRYPTITIS, MUCOSAL ULCERATION AND REACTIVE CHANGE. (SEE COMMENT) SPECIMEN B - COLON, SIGMOID, BIOPSY: -- SEVERE CHRONIC ACTIVE COLITIS WITH CRYPTITIS, SURFACE EXUDATE, FIBROSIS AND REACTIVE CHANGE. (SEE COMMENT) SPECIMEN C - COLON, DISTAL, BIOPSY: -- MODERATE CHRONIC ACTIVE COLITIS WITH CRYPTITIS, RARE CRYPT ABSCESSES AND REACTIVE CHANGE. (SEE COMMENT) (ACP:adj) COMMENT: The colon biopsies submitted from the transverse, sigmoid and distal regions have chronic active inflammation with marked expansion of the lamina propria by lymphoplasmacytic inflammation, neutrophils, histiocytes and a few eosinophils. Patchy cryptitis is noted along with areas of ulceration, surface exudate and rare crypt abscesses. The biopsies have prominent reactive change with stratification of nuclei, nuclear enlargement and irregular chromatin, and assessment for dysplasia cannot be performed. Clinical and endoscopic correlation is recommended. PROCEDURAL IMPRESSION Severe acute colitis. GROSS DESCRIPTION Specimen A: Received in formalin labeled transverse, are seven clark tissue fragments 0.1 to 0.3 cm. Entirely submitted - one cassette. Specimen B: Received in formalin labeled sigmoid, are two clark tissue fragments 0.3 and 0.5 cm. Entirely submitted - one cassette. Specimen C: Received in formalin labeled distal, is a 0.5 cm clark tissue fragment. Entirely submitted - one cassette. (SCB:sln) Electronically Signed by: Joni Wells M.D.
--- NOTE | 2019-10-06 17:53 | General Surgery Progress Note ---
SUBJECTIVE Subjective Patient information: Note initiated : 10/06/19 at 5:52 pm Service Date, if different from initiated Date: [] Patient: Mamadou Day 39 y/o M admitted on 10/02/19 for Acute Choleitis. Chief Complaint: [] Constitutional Vitals: Vital Signs Temp Pulse Resp BP Pulse Ox 98.1 F 52 L 16 122/78 97 10/06/19 16:00 10/06/19 16:00 10/06/19 16:00 10/06/19 16:00 10/06/19 16:00 Period Temp Pulse Resp BP Sys/Mckinney Pulse Ox Last 24 Hr 97.8 F-98.3 F 46-58 16-18 101-122/61-79 95-97 Intake and Output 10/06/19 10/06/19 10/06/19 05:59 13:59 21:59 Intake Total 141 509 4070 Output Total 350 1100 Balance 350 480 820 Weight 234 lb 8 oz Intake & Output: Intake & Output 10/06/19 10/06/19 10/06/19 05:59 13:59 21:59 Intake Total 149 917 6570 Output Total 350 1100 Balance 350 480 820 Weight 234 lb 8 oz Intake: IV 500 1000 Sodium Chloride 0.9% 1,000 ml @ 500 1000 75 mls/hr IV .[id number] [facility] Rx#: [id number] Oral 200 480 920 Output: Void Amount 350 1100 Other: Meal Lunch Dinner Percent of Meal Consumed 100% 100% Feeding Ability Independent Independent Urine Appearance Clear Clear Urine Color Bright Yellow Bright Yellow Urine Odor Normal Stool Size Small Small Stool Color Brown Stool Consistency Loose Loose # Bowel Movements 1 4 A/P Assessment and plan (1) Ulcerative pancolitis: Status: Acute (2) Psoriasis with arthropathy: Status: Acute (3) Acid reflux: Status: Chronic Time Spent With Patient Time: Total time spent is greater than 50% in coordination of care (as documented) at patient's floor/unit and/or counseling patient:
--- NOTE | 2019-10-06 19:21 | General Surgery Progress Note ---
SUBJECTIVE Subjective Patient information: Note initiated : 10/06/19 at 7:21 pm Service Date, if different from initiated Date: [] Patient: Mamadou Day 39 y/o M admitted on 10/02/19 for Acute Choleitis. Chief Complaint: [] Principal diagnosis: abdominal pain and bloody diarrhea Interval history: patient states that he continues to feel better. He is still having multiple soft bowel movements but his bleeding is improved. He is complaining of some jitteriness from the prednisone. His overall pain, bloating and tenderness is improving daily. He denies nausea. Constitutional Vitals: Vital Signs Temp Pulse Resp BP Pulse Ox 98.6 F 64 16 116/71 96 10/06/19 19:18 10/06/19 19:18 10/06/19 19:18 10/06/19 19:18 10/06/19 19:18 Period Temp Pulse Resp BP Sys/Mckinney Pulse Ox Last 24 Hr 97.8 F-98.6 F 46-64 16-18 102-122/61-79 95-97 Intake and Output 10/06/19 10/06/19 10/06/19 05:59 13:59 21:59 Intake Total 916 430 2555 Output Total 350 1100 Balance 350 480 820 Weight 234 lb 8 oz 237 lb 4.8 oz Patient Weight 10/07/19 05:59 Weight 237 lb 4.8 oz Intake & Output: Intake & Output 10/06/19 10/06/19 10/06/19 05:59 13:59 21:59 Intake Total 993 151 3408 Output Total 350 1100 Balance 350 480 820 Weight 234 lb 8 oz 237 lb 4.8 oz Intake: IV 500 1000 Sodium Chloride 0.9% 1,000 ml @ 500 1000 75 mls/hr IV .[id number] [facility] Rx#: [id number] Oral 200 480 920 Output: Void Amount 350 1100 Other: Meal Lunch Dinner Percent of Meal Consumed 100% 100% Feeding Ability Independent Independent Urine Appearance Clear Clear Urine Color Bright Yellow Bright Yellow Urine Odor Normal Stool Size Small Small Stool Color Brown Stool Consistency Loose Loose # Bowel Movements 1 4 Head Head exam: Present atraumatic, normal inspection and normocephalic Eye Eye exam: Present EOMI, normal appearance and PERRL Pupils: Present normal accommodation and PERRL ENT ENT exam: Present mucous membranes moist, normal exam and normal oropharynx Neck Neck exam: Present full ROM and normal inspection; Absent lymphadenopathy, tenderness and thyromegaly Respiratory Respiratory exam: Present CTAB; Absent rales, respiratory distress, rhonchi and wheezes Cardiovascular Cardiovascular exam: Present normal rate and rhythm, RRR, +S1 and +S2; Absent JVD and systolic murmur GI/Abdominal GI/Abdominal exam: Present normal bowel sounds and soft; Absent distended, guarding, mass, organomegaly and tenderness Extremities Exam Extremities exam: Present full ROM and normal inspection; Absent pedal edema and tenderness A/P Assessment and plan (1) Ulcerative pancolitis: Status: Acute (2) Psoriasis with arthropathy: Status: Acute (3) Acid reflux: Status: Chronic Qualifiers: Esophagitis presence: esophagitis presence not specified Qualified Code(s): K21.9 - Gastro-esophageal reflux disease without esophagitis Narrative A/P Narrative: we'll continue on present therapy Discussed with him that he will probably need follow-up with GI at the time of discharge Time Spent With Patient Time: Total time spent is greater than 50% in coordination of care (as d ocumented) at patient's floor/unit and/or counseling patient:
[2019-10-06] MEDS: DICYCLOMINE 20 MG TABLET PO SCH (21:10)
[2019-10-06] MEDS: traZODone HCL 50 MG TABLET PO PRN (22:02)
[2019-10-07] MEDS: HYDROmorphone 1 MG/ML SYRINGE IV PRN ×7 (00:58→23:30)
[2019-10-07] MEDS: 0.9 % SODIUM CHLORIDE 10 ML SYRINGE IV SCH ×3 (04:10→20:20)
[2019-10-07 06:53] LABS: Basophils # (Auto) 0.03 K/mcL (0.00-0.30); Basophils % (Auto) 0.3 % (0.0-2.0); Eosinophils # (Auto) 0.01 K/mcL (0.00-0.70); Eosinophils % (Auto) 0.1 % (0.0-7.0); Granulocytes % (Auto) 80.9 % (38.0-78.0); Hematocrit 40.1 % (40.1-51.0); Hemoglobin 13.1 g/dL (13.7-17.5); Lymphocytes # (Auto) 1.78 K/mcL (1.50-4.80); Mean Cell Volume 86.6 fL (80.0-100.0); Mean Corpuscular HGB Conc 32.7 g/dL (31.0-36.0); Mean Platelet Volume 8.8 fL (7.4-10.4); Monocytes # (Auto) 0.44 K/mcL (0.10-0.90); Monocytes % (Auto) 3.7 % (1.0-12.0); Platelet Count 309 K/mcL (140-440); RBC 4.63 M/mcL (4.63-6.08); Red Cell Distribution Width 14.4 % (11.5-14.5); WBC 11.9 K/mcL (4.50-11.00)
[2019-10-07] MEDS: 0.9 % SODIUM CHLORIDE 1,000 ML IV SCH ×3 (07:01→22:13)
[2019-10-07] MEDS: PANTOPRAZOLE 40 MG TABLET PO SCH (07:01)
[2019-10-07 07:27] LABS: ALT/SGPT 55 U/l (0-40); AST/SGOT 9 U/l (0-37); Albumin/Globulin Ratio 0.9 (1.0-2.3); Alkaline Phosphatase 70 U/L (39-117); Bilirubin,Direct < 0.2 mg/dL (0.0-0.3); Bilirubin,Total 0.2 mg/dL (0.0-1.0); Blood Urea Nitrogen 12 mg/dl (6-20); C-Reactive Protein 0.7 mg/dl (0.0-0.8); Calcium 8.8 mg/dl (8.6-10.4); Carbon Dioxide 24 mmol/L (22-30); Chloride 99 mmol/L (96-108); Globulin 3.4 gm/dL (2.2-3.7); Glomerular Filtration Rate 113; Glucose 174 mg/dL (70-105); Lactate Dehydrogenase 125 U/L (94-250); Triglycerides 80 mg/dl (<150); Uric Acid 5.1 mg/dL (2.5-8.0)
[2019-10-07] MEDS: MESALAMINE 500 MG CAPSULE PO SCH ×4 (08:42→20:20)
[2019-10-07] MEDS: LEVOFLOXACIN 750 MG/150 ML BAG IV SCH (08:42)
[2019-10-07] MEDS: methylPREDNISolone SOD SUCC 125 MG/2 ML VIAL IV SCH ×2 (08:42→20:19)
[2019-10-07] MEDS: DICYCLOMINE 20 MG TABLET PO SCH ×4 (08:42→20:20)
[2019-10-07] MEDS: BUDESONIDE 3 MG CAP.XL.24H PO SCH (08:43)
--- NOTE | 2019-10-07 14:40 | General Surgery Progress Note ---
SUBJECTIVE Subjective Patient information: Note initiated : 10/07/19 at 2:37 pm Service Date, if different from initiated Date: [] Patient: Mamadou Day 39 y/o M admitted on 10/02/19 for Acute Choleitis. Chief Complaint: [] patient states that he feels better. He has less abdominal discomfort. He denies nausea. His stools or loose but not watery. He no longer has bloody bowel movements. Constitutional Vitals: Vital Signs Temp Pulse Resp BP Pulse Ox 98.0 F 56 L 16 114/67 96 10/07/19 12:00 10/07/19 12:00 10/07/19 12:00 10/07/19 12:00 10/07/19 12:00 Period Temp Pulse Resp BP Sys/Mckinney Pulse Ox Last 24 Hr 97.6 F-98.7 F 47-64 16-18 108-122/62-78 95-97 Intake and Output 10/07/19 10/07/19 10/07/19 05:59 13:59 21:59 Intake Total 1800 910 Output Total 1650 1500 Balance 150 -590 Intake & Output: Intake & Output 10/07/19 10/07/19 10/07/19 05:59 13:59 21:59 Intake Total 1800 910 Output Total 1650 1500 Balance 150 -590 Intake: IV 1000 670 Sodium Chloride 0.9% 1,000 ml @ 1000 670 75 mls/hr IV .[id number] [facility] Rx#: [id number] Oral 800 240 Output: Void Amount 1650 1500 Other: Meal Breakfast Percent of Meal Consumed 100% Urine Appearance Clear Clear Urine Color Bright Yellow Straw Urine Odor Normal Normal Stool Size Small Stool Color Brown Brown Stool Consistency Soft Soft Liquid Liquid # Bowel Movements 5 Head Head exam: Present atraumatic, normal inspection and normocephalic Eye Eye exam: Present EOMI, normal appearance and PERRL Pupils: Present normal accommodation and PERRL ENT ENT exam: Present mucous membranes moist, normal exam and normal oropharynx Neck Neck exam: Present full ROM and normal inspection; Absent lymphadenopathy, tenderness and thyromegaly Respiratory Respiratory exam: Present CTAB; Absent rales, respiratory distress, rhonchi and wheezes Cardiovascular Cardiovascular exam: Present normal rate and rhythm, RRR, +S1 and +S2; Absent JVD and systolic murmur GI/Abdominal GI/Abdominal exam: Present normal bowel sounds and soft; Absent distended, guarding, mass, organomegaly and tenderness Extremities Exam Extremities exam: Present full ROM and normal inspection; Absent pedal edema and tenderness A/P Assessment and plan (1) Ulcerative pancolitis: Status: Acute Comment: patient continues to improve. He is asymptomatic. White blood count is near normal. (2) Psoriasis with arthropathy: Status: Acute (3) Acid reflux: Status: Chronic Time Spent With Patient Time: Total time spent is greater than 50% in coordination of care (as documented) at patient's floor/unit and/or counseling patient:
[2019-10-07] MEDS: traZODone HCL 50 MG TABLET PO PRN (23:05)
[2019-10-08] MEDS: HYDROmorphone 1 MG/ML SYRINGE IV PRN ×6 (03:12→21:10)
[2019-10-08] MEDS: 0.9 % SODIUM CHLORIDE 1,000 ML IV SCH ×2 (03:13→12:54)
[2019-10-08] MEDS: 0.9 % SODIUM CHLORIDE 10 ML SYRINGE IV SCH ×3 (05:29→21:06)
[2019-10-08] MEDS: PANTOPRAZOLE 40 MG TABLET PO SCH (06:27)
[2019-10-08 07:42] LABS: Basophils # (Auto) 0.04 K/mcL (0.00-0.30); Basophils % (Auto) 0.3 % (0.0-2.0); Eosinophils # (Auto) 0.01 K/mcL (0.00-0.70); Eosinophils % (Auto) 0.1 % (0.0-7.0); Granulocytes % (Auto) 80.1 % (38.0-78.0); Hematocrit 40.6 % (40.1-51.0); Lymphocytes # (Auto) 2.07 K/mcL (1.50-4.80); Lymphocytes % (Auto) 13.9 % (15.5-49.0); Mean Cell Volume 88.6 fL (80.0-100.0); Mean Platelet Volume 8.7 fL (7.4-10.4); Monocytes # (Auto) 0.83 K/mcL (0.10-0.90); Monocytes % (Auto) 5.6 % (1.0-12.0); Platelet Count 315 K/mcL (140-440); RBC 4.58 M/mcL (4.63-6.08); Red Cell Distribution Width 14.3 % (11.5-14.5); WBC 14.9 K/mcL (4.50-11.00)
[2019-10-08 08:00] LABS: ALT/SGPT 49 U/l (0-40); AST/SGOT 10 U/l (0-37); Albumin 3.2 gm/dL (3.2-5.2); Albumin/Globulin Ratio 1.1 (1.0-2.3); Alkaline Phosphatase 64 U/L (39-117); Bilirubin,Direct < 0.2 mg/dL (0.0-0.3); Bilirubin,Total 0.3 mg/dL (0.0-1.0); Blood Urea Nitrogen 13 mg/dl (6-20); Calcium 8.8 mg/dl (8.6-10.4); Carbon Dioxide 23 mmol/L (22-30); Glomerular Filtration Rate 108; Glucose 181 mg/dL (70-105); Lactate Dehydrogenase 136 U/L (94-250); Phosphorous 3.3 mg/dL (2.7-4.5); Triglycerides 91 mg/dl (<150); Uric Acid 5.3 mg/dL (2.5-8.0)
[2019-10-08 08:04] LABS: Chloride 95 mmol/L (96-108)
[2019-10-08] MEDS: BUDESONIDE 3 MG CAP.XL.24H PO SCH (08:19)
[2019-10-08] MEDS: methylPREDNISolone SOD SUCC 125 MG/2 ML VIAL IV SCH ×2 (08:19→21:06)
[2019-10-08] MEDS: LEVOFLOXACIN 750 MG/150 ML BAG IV SCH (08:20)
[2019-10-08] MEDS: MESALAMINE 500 MG CAPSULE PO SCH ×4 (08:20→21:06)
[2019-10-08] MEDS: DICYCLOMINE 20 MG TABLET PO SCH ×4 (08:20→21:06)
[2019-10-08] MEDS: oxyCODONE HCL 5 MG TABLET PO PRN ×2 (19:00→22:50)
[2019-10-08] MEDS: LOPERAMIDE 2 MG CAPSULE PO PRN (21:11)
[2019-10-08] MEDS: traZODone HCL 50 MG TABLET PO PRN (22:51)
[2019-10-09] MEDS: HYDROmorphone 1 MG/ML SYRINGE IV PRN ×3 (01:11→12:36)
[2019-10-09] MEDS: LOPERAMIDE 2 MG CAPSULE PO PRN ×2 (01:14→14:44)
[2019-10-09] MEDS: 0.9 % SODIUM CHLORIDE 1,000 ML IV SCH (01:39)
[2019-10-09] MEDS: oxyCODONE HCL 5 MG TABLET PO PRN ×4 (03:31→16:04)
[2019-10-09] MEDS: PANTOPRAZOLE 40 MG TABLET PO SCH (06:21)
[2019-10-09] MEDS: 0.9 % SODIUM CHLORIDE 10 ML SYRINGE IV SCH ×2 (06:26→13:52)
[2019-10-09 06:43] LABS: Basophils # (Auto) 0.02 K/mcL (0.00-0.30); Basophils % (Auto) 0.1 % (0.0-2.0); Eosinophils # (Auto) 0 K/mcL (0.00-0.70); Eosinophils % (Auto) 0 % (0.0-7.0); Granulocytes % (Auto) 81.8 % (38.0-78.0); Hematocrit 40.5 % (40.1-51.0); Hemoglobin 13.3 g/dL (13.7-17.5); Lymphocytes # (Auto) 1.58 K/mcL (1.50-4.80); Lymphocytes % (Auto) 10.4 % (15.5-49.0); Mean Cell Volume 86.5 fL (80.0-100.0); Mean Corpuscular HGB Conc 32.8 g/dL (31.0-36.0); Mean Platelet Volume 8.9 fL (7.4-10.4); Monocytes # (Auto) 1.18 K/mcL (0.10-0.90); Monocytes % (Auto) 7.7 % (1.0-12.0); Platelet Count 317 K/mcL (140-440); RBC 4.68 M/mcL (4.63-6.08); Red Cell Distribution Width 14.4 % (11.5-14.5); WBC 15.2 K/mcL (4.50-11.00)
[2019-10-09 07:09] LABS: ALT/SGPT 50 U/l (0-40); AST/SGOT 10 U/l (0-37); Albumin 3.2 gm/dL (3.2-5.2); Alkaline Phosphatase 66 U/L (39-117); Bilirubin,Direct < 0.2 mg/dL (0.0-0.3); Bilirubin,Total 0.3 mg/dL (0.0-1.0); Blood Urea Nitrogen 11 mg/dl (6-20); Calcium 8.9 mg/dl (8.6-10.4); Carbon Dioxide 25 mmol/L (22-30); Chloride 99 mmol/L (96-108); Globulin 3.1 gm/dL (2.2-3.7); Glomerular Filtration Rate 113; Glucose 117 mg/dL (70-105); Lactate Dehydrogenase 157 U/L (94-250); Triglycerides 100 mg/dl (<150)
[2019-10-09] MEDS: LEVOFLOXACIN 750 MG/150 ML BAG IV SCH (08:15)
[2019-10-09] MEDS: methylPREDNISolone SOD SUCC 125 MG/2 ML VIAL IV SCH (08:15)
[2019-10-09] MEDS: BUDESONIDE 3 MG CAP.XL.24H PO SCH (08:16)
[2019-10-09] MEDS: MESALAMINE 500 MG CAPSULE PO SCH ×2 (08:16→12:39)
[2019-10-09] MEDS: DICYCLOMINE 20 MG TABLET PO SCH ×2 (08:16→12:39)
--- NOTE | 2019-10-09 15:33 | Discharge Summary ---
Discharge Provider Provider Patient information: Note initiated : 10/09/19 at 3:28 pm Service Date, if different from initiated Date: [] Patient: Mamadou Day 39 y/o M admitted on 10/02/19 for Acute Choleitis. Chief Complaint: [] Date of admission: 10/02/19 12:07 Discharge date: 10/09/19 Primary care physician: Lila Burciaga DO Admitting clinician: Amilcar Rosales Attending physician on admission: Amilcar Rosales Attending physician on discharge: Amilcar Rosales Discharging clinician: Amilcar Rosales COURSE Hospital Course Hospital Course: 39-year-old male with history of acute pancolonic ulcerative colitis. Patient represents on the day of admission with increasing pain nausea and bloody stools. He was admitted and underwent colonoscopy which confirmed acute active pancolitis. Biopsies were taken for confirmation. Patient was already on Solu- Medrol so he was given budesonide orally and started on dicyclomine. He had improvement in symptoms and his diet was advanced without difficulty. He is clinically stable at this time and is discharged home with plans for follow-up in 2 weeks. Discharge diagnosis: acute ulcerative pancolitis Secondary discharge diagnosis: psoriatic arthritis Reason for admission: abdominal pain, bloody diarrhea Procedures: total colonoscopy with biopsies Pertinent studies/significant findings: CT of abdomen and pelvis with contrast Complications: none Time Spent with Patient Time attestation: Total time spent providing and/or coordinating discharge services: Time spent: Greater than 30 minutes Physical Examination Vital Signs Vital signs: Temp Pulse Resp BP Pulse Ox 97.4 F 55 L 16 105/68 96 10/09/19 12:00 10/09/19 12:00 10/09/19 12:00 10/09/19 12:00 10/09/19 12:00 General physical appearance General physical exam: well developed, well nourished and no distress Eyes Eye exam: PERRL and normal ocular movement ENT ENT exam: normal pinna, normal nares and normal mucosa Head Head exam IM: Present atraumatic, normal inspection and normocephalic Neck Neck exam: no masses, no bruits, trachea midline, no lymphadenopathy, no venous distension and other; negative deviated trachea, diffuse goiter and limited ROM Cardiovascular Cardiovascular exam IM: Present normal rate and rhythm, RRR, +S1 and +S2; Absent gallop and JVD Respiratory Respiratory exam: normal expansion, normal respiratory effort, clear to percussion, clear to auscultation and other Abdomen Abdomen: Present soft and non tender; Absent tender, guarding and distended Integumentary Integumentary: Present no rash, no growths, no abnormal pigmentation and other Neurologic Neurologic: Present normal coordination, normal sensation, disoriented, combative, deep tendon reflexes and other; Absent confused and memory loss Musculoskeletal Musculoskeletal: Present normal gait, normal posture and other Psychiatric Psychiatric: Present oriented to time, oriented to person, oriented to place, speech is normal, memory intact and other Discharge Plan Patient/Caregiver Discharge Instructions Activity: increase activity as tolerated Diet: Low Fiber Prescriptions: New loperamide 2 mg Capsule 2 mg PO PRN PRN (Reason: Diarrhea) Qty: 30 RF: 3 trazodone 50 mg Tablet 50 mg PO HSP PRN (Reason: Insomnia) Qty: 30 RF: 0 dicyclomine 20 mg Tablet 20 mg PO QID Qty: 90 RF: 1 pantoprazole 40 mg Tablet,Delayed Release (Dr/Ec) 40 mg PO QAMAC Qty: 30 RF: 0 budesonide 3 mg Capsule,Delayed,Extend.Release 9 mg PO DAILY Qty: 270 RF: 3 oxycodone 5 mg Tablet 10 mg PO Q4HP PRN (Reason: Per Pain Protocol) Qty: 60 RF: 0 Continued Cosentyx Pen (2 Pens) 150 mg/mL pen injector 300 mg SUB-Q .COMPLEX Qty: 2 RF: 5 prednisone 20 mg tablet 60 mg PO QAMCC Qty: 30 RF: 2 loperamide 2 MG capsule 2 mg PO PRN PRN (Reason: Diarrhea) RF: 0 mesalamine 500 MG capsule 500 mg PO QID Qty: 140 RF: 0 No Action omeprazole 20 MG capsule 20 mg PO BID RF: 0 Pending Pending Pending: Resuscitation Status Full Code Diet GI Soft/Transitional Start Sun Oct 07 2245 Budesonide (Entecort) 9 mg PO DAILY GAB Last Admin: 10/09/19 08:16 Dose: 9 mg Documented by: [email or web address] Admin: 10/08/19 08:19 Dose: 9 mg Documented by: [id number] Admin: 10/07/19 08:43 Dose: 9 mg Documented by: [id number] Admin: 10/06/19 08:29 Dose: 9 mg Documented by: [email or web address] Admin: 10/05/19 20:42 Dose: 9 mg Documented by: IRIS Dicyclomine HCl (Dicyclomine) 20 mg PO QID [facility] Admin: 10/09/19 12:39 Dose: 20 mg Documented by: [email or web address] Admin: 10/09/19 08:16 Dose: 20 mg Documented by: [id number] Admin: 10/08/19 21:06 Dose: 20 mg Documented by: Admin: 10/08/19 16:48 Dose: 20 mg Documented by: [id number] Admin: 10/08/19 12:12 Dose: 20 mg Documented by: [facility] Admin: 10/08/19 08:20 Dose: 20 mg Documented by: [id number] Admin: 10/07/19 20:20 Dose: 20 mg Documented by: Admin: 10/07/19 17:07 Dose: 20 mg Documented by: [email or web address] Admin: 10/07/19 12:45 Dose: 20 mg Documented by: [facility] Admin: 10/07/19 08:42 Dose: 20 mg Documented by: [facility] Admin: 10/06/19 21:10 Dose: 20 mg Documented by: SHELLY Hydromorphone HCl (Dilaudid) 1 mg IV Q2HP PRN; Protocol PRN Reason: Per Pain Protocol Last Admin: 10/09/19 12:36 Dose: 1 mg Documented by: [facility] Admin: 10/09/19 08:23 Dose: 1 mg Documented by: [facility] Admin: 10/09/19 01:11 Dose: 1 mg Documented by: Admin: 10/08/19 21:06 Dose: 1 mg Documented by: Admin: 10/08/19 17:12 Dose: 1 mg Documented by: [id number] Admin: 10/08/19 15:13 Dose: 1 mg Documented by: [facility] Admin: 10/08/19 12:54 Dose: 1 mg Documented by: [id number] Admin: 10/08/19 09:08 Dose: 1 mg Documented by: [id number] Admin: 10/08/19 03:12 Dose: 1 mg Documented by: Admin: 10/07/19 23:30 Dose: 1 mg Documented by: Admin: 10/07/19 20:20 Dose: 1 mg Documented by: Admin: 10/07/19 17:41 Dose: 1 mg Documented by: Admin: 10/07/19 15:27 Dose: 1 mg Documented by: Admin: 10/07/19 11:23 Dose: 1 mg Documented by: Admin: 10/07/19 03:31 Dose: 1 mg Documented by: Admin: 10/07/19 00:58 Dose: 1 mg Documented by: Admin: 10/06/19 22:02 Dose: 1 mg Documented by: Admin: 10/06/19 20:01 Dose: 1 mg Documented by: Admin: 10/06/19 15:09 Dose: 1 mg Documented by: Admin: 10/06/19 09:30 Dose: 1 mg Documented by: Admin: 10/06/19 05:25 Dose: 1 mg Documented by: Admin: 10/06/19 02:35 Dose: 1 mg Documented by: Admin: 10/05/19 23:11 Dose: 1 mg Documented by: Admin: 10/05/19 20:00 Dose: 1 mg Documented by: Admin: 10/05/19 17:32 Dose: 1 mg Documented by: Admin: 10/05/19 13:06 Dose: 1 mg Documented by: Admin: 10/05/19 05:22 Dose: 1 mg Documented by: Admin: 10/05/19 02:16 Dose: 1 mg Documented by: Admin: 10/04/19 23:59 Dose: 1 mg Documented by: Admin: 10/04/19 21:18 Dose: 1 mg Documented by: SHELLY Levofloxacin (Levaquin) 750 mg in 150 mls @ 100 mls/hr IV Q24H GAB; Protocol Last Infusion: 10/09/19 13:52 Dose: 0 mls/hr Documented by: [id number] Admin: 10/09/19 08:15 Dose: 100 mls/hr Documented by: [email or web address] Infusion: 10/08/19 15:33 Dose: 0 mls/hr Documented by: Admin: 10/08/19 08:20 Dose: 100 mls/hr Documented by: [email or web address] Infusion: 10/07/19 10:15 Dose: 0 mls/hr Documented by: Admin: 10/07/19 08:42 Dose: 100 mls/hr Documented by: [id number] Infusion: 10/06/19 09:58 Dose: 100 mls/hr Documented by: Admin: 10/06/19 08:28 Dose: 100 mls/hr Documented by: [email or web address] Infusion: 10/05/19 10:00 Dose: 0 mls/hr Documented by: [email or web address] Admin: 10/05/19 08:12 Dose: 100 mls/hr Documented by: [email or web address] Sodium Chloride (Sodium Chloride 0.9%) 1,000 mls @ 75 mls/hr IV .[id number] GAB [facility] Admin: 10/09/19 01:39 Dose: 75 mls/hr Documented by: Infusion: 10/09/19 01:39 Dose: 75 mls/hr Documented by: Admin: 10/08/19 12:54 Dose: 75 mls/hr Documented by: [email or web address] Infusion: 10/08/19 11:33 Dose: 75 mls/hr Documented by: [id number] Admin: 10/08/19 03:13 Dose: Not Given Documented by: Admin: 10/07/19 22:13 Dose: 75 mls/hr Documented by: Infusion: 10/07/19 20:21 Dose: 75 mls/hr Documented by: Admin: 10/07/19 13:42 Dose: Not Given Documented by: Admin: 10/07/19 07:01 Dose: 75 mls/hr Documented by: [email or web address] Infusion: 10/07/19 07:01 Dose: 75 mls/hr Documented by: [id number] Admin: 10/06/19 22:05 Dose: 75 mls/hr Documented by: Infusion: 10/06/19 22:05 Dose: 75 mls/hr Documented by: Admin: 10/06/19 17:31 Dose: 75 mls/hr Documented by: [email or web address] Infusion: 10/06/19 17:31 Dose: 0 mls/hr Documented by: [email or web address] Admin: 10/06/19 02:35 Dose: 75 mls/hr Documented by: Infusion: 10/06/19 01:50 Dose: 75 mls/hr Documented by: Admin: 10/05/19 19:09 Dose: 75 mls/hr Documented by: IRIS Loperamide HCl (Imodium) 2 mg PO PRN PRN PRN Reason: Diarrhea Last Admin: 10/09/19 14:44 Dose: 2 mg Documented by: Admin: 10/09/19 01:14 Dose: 2 mg Documented by: Admin: 10/08/19 21:11 Dose: 2 mg Documented by: [email or web address] Mesalamine (Pentasa) 500 mg PO QID GAB Last Admin: 10/09/19 12:39 Dose: 500 mg Documented by: Admin: 10/09/19 08:16 Dose: 500 mg Documented by: Admin: 10/08/19 21:06 Dose: 500 mg Documented by: Admin: 10/08/19 16:48 Dose: 500 mg Documented by: Admin: 10/08/19 12:12 Dose: 500 mg Documented by: Admin: 10/08/19 08:20 Dose: 500 mg Documented by: Admin: 10/07/19 20:20 Dose: 500 mg Documented by: Admin: 10/07/19 17:07 Dose: 500 mg Documented by: [email or web address] Admin: 10/07/19 12:45 Dose: 500 mg Documented by: Admin: 10/07/19 08:42 Dose: 500 mg Documented by: Admin: 10/06/19 21:14 Dose: 500 mg Documented by: Admin: 10/06/19 17:28 Dose: 500 mg Documented by: Admin: 10/06/19 14:00 Dose: 500 mg Documented by: Admin: 10/06/19 08:28 Dose: 500 mg Documented by: Admin: 10/05/19 20:42 Dose: 500 mg Documented by: Admin: 10/05/19 17:31 Dose: 500 mg Documented by: Admin: 10/05/19 13:07 Dose: 500 mg Documented by: Admin: 10/05/19 08:12 Dose: 500 mg Documented by: Admin: 10/04/19 21:24 Dose: 500 mg Documented by: SHELLY Methylprednisolone Sodium Succinate (Solu-Medrol) 62.5 mg IV Q12 [facility] Last Admin: 10/09/19 08:15 Dose: 62.5 mg Documented by: Admin: 10/08/19 21:06 Dose: 62.5 mg Documented by: Admin: 10/08/19 08:19 Dose: 62.5 mg Documented by: Admin: 10/07/19 20:19 Dose: 62.5 mg Documented by: Admin: 10/07/19 08:42 Dose: 62.5 mg Documented by: Admin: 10/06/19 21:10 Dose: 62.5 mg Documented by: Admin: 10/06/19 08:29 Dose: 62.5 mg Documented by: Admin: 10/05/19 20:41 Dose: 62.5 mg Documented by: Admin: 10/05/19 08:12 Dose: 62.5 mg Documented by: Admin: 10/04/19 21:17 Dose: 62.5 mg Documented by: SHELLY Oxycodone HCl (Roxicodone) 10 mg PO Q4HP PRN; Protocol PRN Reason: Per Pain Protocol Last Admin: 10/09/19 11:42 Dose: 10 mg Documented by: [email or web address] Admin: 10/09/19 07:18 Dose: 10 mg Documented by: [id number] Admin: 10/09/19 03:31 Dose: 10 mg Documented by: Admin: 10/08/19 22:50 Dose: 10 mg Documented by: Admin: 10/08/19 19:00 Dose: 10 mg Documented by: MARYCARMEN Pantoprazole Sodium (Protonix) 40 mg PO QAMAC [facility] Last Admin: 10/09/19 06:21 Dose: 40 mg Documented by: [id number] Admin: 10/08/19 06:27 Dose: 40 mg Documented by: [id number] Admin: 10/07/19 07:01 Dose: 40 mg Documented by: [id number] Admin: 10/06/19 07:55 Dose: 40 mg Documented by: Admin: 10/05/19 06:50 Dose: 40 mg Documented by: [email or web address] Sodium Chloride (Saline Flush) 10 ml IV Q8 [facility] Last Admin: 10/09/19 13:52 Dose: Not Given Documented by: [email or web address] Admin: 10/09/19 06:26 Dose: Not Given Documented by: Admin: 10/08/19 21:06 Dose: 10 ml Documented by: Admin: 10/08/19 14:50 Dose: Not Given Documented by: [email or web address] Admin: 10/08/19 05:29 Dose: Not Given Documented by: Admin: 10/07/19 20:20 Dose: Not Given Documented by: Admin: 10/07/19 12:45 Dose: Not Given Documented by: [email or web address] Admin: 10/07/19 04:10 Dose: Not Given Documented by: Admin: 10/06/19 21:11 Dose: Not Given Documented by: Admin: 10/06/19 13:38 Dose: Not Given Documented by: [email or web address] Admin: 10/06/19 06:48 Dose: Not Given Documented by: Admin: 10/05/19 20:42 Dose: 10 ml Documented by: Admin: 10/05/19 15:29 Dose: 10 ml Documented by: Admin: 10/05/19 05:22 Dose: Not Given Documented by: Admin: 10/04/19 21:17 Dose: Not Given Documented by: SHELLY Trazodone HCl (Desyrel) 50 mg PO HSP PRN PRN Reason: Insomnia Last Admin: 10/08/19 22:51 Dose: 50 mg Documented by: Admin: 10/07/19 23:05 Dose: 50 mg Documented by: Admin: 10/06/19 22:02 Dose: 50 mg Documented by: Admin: 10/05/19 23:12 Dose: 50 mg Documented by: IRIS Shift Summary 10/09/19 03:40 Shift Summary by Yin Denis Patient alert and oriented x4. Seen by Dr. Rosales last night. Advanced his diet to GI Soft. Patient slept off and on this shift. Up ad oralia in room. Had 9-10x loose, soft bowel movement this shift. Mostly small BM's and some medium stools. Started on PO Roxicodone PRN, given 2 tabsx3 and Dilaudid IV x 2 with moderate effect. Also given Imodium 2mg x2. For discharge home today probably late afternoon. VSS. Initialized on 10/09/19 03:40 - END OF NOTE
--- NOTE | 2019-10-23 13:55 | Operative Note ---
DATE OF OPERATION: 10/04/2019 PREOPERATIVE DIAGNOSIS: Acute ulcerative colitis. POSTOPERATIVE DIAGNOSIS: Acute ulcerative colitis. PROCEDURE: Colonoscopy with biopsies. SURGEON: Amilcar Rosales M.D. FINDINGS: Severe acute colitis extending from rectum to cecum with no skip areas with punctate ulcers with deep craters in the sigmoid colon. SPECIMENS: Biopsies from ascending colon, transverse colon, and sigmoid colon. DESCRIPTION OF PROCEDURE: Under general anesthesia, the patient was turned to the left lateral decubitus position. Digital examination was unremarkable. Scope was introduced and there was noted to be in acute severe inflammation extending from above the dentate line all the way to the cecum without any skip areas. The greatest area of inflammation was in the transverse, descending and sigmoid colon. The scope was gradually withdrawn. There were noted to be punctate ulcers with deep craters in the distal descending sigmoid colon. Biopsies were taken of the ascending colon, transverse colon, and sigmoid colon for confirmation. Because of severe inflammation, no retroflex view was done in the rectum. Good view of the rectum was achieved on direct view. The patient tolerated the procedure well. Air was suctioned from the distal colon. Scope was removed. He was awakened, transferred to a bed, and taken to the postanesthetic care unit in stable, satisfactory condition. LCS:maura Job ID: [id number] Doc ID: [id number] Amilcar Rosales M.D.
== END 2019-10-09 17:25 | disposition home or self-care (01) | DRG 387 ==
LOC: MEDSUR 12:07
PROVIDERS: ADMIT Family Medicine Adult Medicine; ATTEND Family Medicine Adult Medicine